=== PATIENT | female | born 1955 | race Caucasian/White ===

== ENCOUNTER 2017-07-24 16:10 | Observation (INO) | payer MEDICARE ==
[2017-07-24] MEDS ORDERED: Ondansetron HCl/PF 4 MG/2 ML Vial ONE (16:39)
[2017-07-24] MEDS ORDERED: Acetaminophen 325 MG TAB ONE (17:56)
[2017-07-24] MEDS ORDERED: Nitroglycerin 2% Ointment 1 INCH/1 GM Packet ONE (17:56)
[2017-07-24 18:08] LABS: Troponin I Less than 0.010 ng/mL (< 0.028)
[2017-07-24] MEDS ORDERED: Acetaminophen 325 MG TAB PO PRN (18:54)
[2017-07-24] MEDS ORDERED: Nitroglycerin 0.4 MG TAB (25 Tab Bottle) PO PRN (18:54)
--- NOTE | 2017-07-24 19:46 | HP ---
PRIMARY CARE PHYSICIAN: Dr. Renate Ro. CHIEF COMPLAINT: Chest pain. HISTORY OF PRESENT ILLNESS: Ms. Ricks is a pleasant 61-year-old lady who was seen at [facility] on 07/24/2017 following transfer from emergency room at [place]. She reports that over the last 3 weeks, she has had shortness of breath. She also reports that she h as been feeling dizzy with standing up. She reports that she wakes up, then has to sit up to get her bearings and slowly tries to stand up. She also reports that she has been feeling short of breath with minimal exertion. She has been unabl e to stand up in kitchen because of shortness of breath. She denies any paroxysmal nocturnal dyspnea . She denies any orthopnea. Today morning, she developed retrosternal chest pain, dull, nonradiating, 7/10. No known aggravating or relieving factors, not accompanied by nausea or vomiting; accompanied by shortness of breath. She reports that 2 nights ago, she had a different kind of pain under her left breast, which were sha rp. She also reports being hospitalized at [facility] in April for dehydration and urinary tract infecti on. REVIEW OF SYSTEMS: The following complete review of systems was negative, unless otherwise mentioned in the HPI or below: Constitutional: Weight loss or gain, sense of well-being, ability to conduct usual activities, exerc ise tolerance. Skin/Breast: Rash, itching, changes in hair growth or loss, nail changes, breast lumps, tenderness, swelling, nipple discharge. Eyes: Vision, double vision, tearing, blind spots, pain. ENT/Mouth: Headaches (location, time of onset, duration, precipitating factors), vertigo, lightheade dness, injury. Vision, double vision, tearing, blind spots, pain, nose bleeding, colds, obstruction, discharge, dental difficulties, gingival bleeding, dentures, neck stiffness, pain, tenderness, masses in thyroid or other areas. Cardiovascular: Precordial pain, substernal distress, palpitations, syncope, dyspnea on exertion, or thopnea, nocturnal paroxysmal dyspnea, edema, cyanosis, hypertension, heart murmurs, varicosities, ph lebitis, claudication. Respiratory: Pain, shortness of breath, wheezing, stridor, cough, hemoptysis, fever or night sweats. Gastrointestinal: Poor appetite, dysphagia, indigestion, abdominal pain, heartburn, eructation, naus ea, vomiting, hematemesis, jaundice, constipation, or diarrhea, abnormal stools (sonam-colored, tarry, bloody, greasy, foul smelling), flatulence, hemorrhoids, recent changes in bowel habits. Genitourinary: Urgency, frequency, dysuria, nocturia, hematuria, polyuria, oliguria, unusual (or isabel nge in) color of urine, stones, hesitancy, change in size of stream, dribbling, acute retention or in continence, libido, potency. Musculoskeletal: Pain, swelling, redness or heat of muscles or joints, limitation, of motion, muscul ar weakness, atrophy, cramps. Neurologic/Psychiatric: Convulsions, paralyses, tremor, incoordination, paresthesias, difficulties w ith memory of speech, sensory or motor disturbances, or muscular coordination (ataxia, tremor), emoti onal problems, anxiety, depression, previous psychiatric care, unusual perceptions, hallucinations. Allergy/Immunologic: Skin rash, anemia, bleeding tendency, polydipsia, polyuria, intolerance to heat or cold. PAST MEDICAL HISTORY: Significant for hypertension, anemia, gastric ulcers, osteoarthritis and heart murmur. PAST SURGICAL HISTORY: Significant for gastric bypass surgery, cholecystectomy, hernia repair and hy sterectomy. FAMILY HISTORY: Significant for myocardial infarction in her brother in his 50's. SOCIAL HISTORY: The patient denies tobacco use, alcohol use or recreational drug use. ALLERGIES: CELEBREX, CEPHALEXIN, NONSTEROIDAL ANTI-INFLAMMATORY AGENTS and SULFA. CURRENT MEDICATIONS: Include albuterol 1 puff every 12 hours, potassium 10 mEq daily, Synthroid 150 mcg daily, estradiol 2 mg daily, Singulair 10 mg daily, trazodone 50 mg daily, [place] p.r.n., nitrogly cerin sublingual p.r.n., cetirizine 10 mg daily, cyclobenzaprine 10 mg 3 times a day, paroxetine 40 m g daily, Symbicort 1 puff 2 times a day, Zofran p.r.n. and hydroxyzine p.r.n. PHYSICAL EXAMINATION: GENERAL: Ms. Ricks is awake and alert, not in acute distress. VITAL SIGNS: Blood pressure is 132/81 and pulse is 87. She is breathing at rate of 17 and saturatin g 95% on room air. She is afebrile. EYES: No scleral icterus. No conjunctival pallor. ENT: Moist mucosal membranes. No oropharyngeal erythema or exudates. NECK: Supple, nontender, normal range of movement. Trachea is midline. RESPIRATORY: Accessory muscles of breathing are not active. Chest wall movements are symmetric bila terally. LUNGS: Clear to auscultation without wheeze, rhonchi or crepitations. CARDIOVASCULAR: S1 and S2 are heard, regular. LUNGS: Peripheral pulses palpable. No carotid bruit, no pericardial rub. ABDOMEN: Soft, nontender, bowel sounds are heard. No hepatomegaly, no splenomegaly. NEUROLOGIC: Cranial nerves II-XII are intact, deep tendon reflexes are 2+. MUSCULOSKELETAL: Power is 5/5 in all 4 extremities, normal range of movement at all major extremity joints. SKIN: No rashes or subcutaneous nodules. 1+ bilateral lower extremity edema present. LYMPHATIC: No cervical lymphadenopathy. PSYCHIATRIC: Normal mood, normal affect. Patient is oriented to person, place and time. LABORATORY DATA: Ms. Ricks's labs and investigations were reviewed. I reviewed her electrocardiogram , which shows normal sinus rhythm. No ST changes to suggest an acute coronary syndrome. I also revi ewed her chest x-ray, which does not show any pulmonary infiltrates. She also had a CT angiogram of the chest, which was an indeterminate study for pulmonary embolism. There were no acute thoracic fin dings. Laboratory investigations showed an elevated D-dimer of 0.91, normal sodium, normal potassium , elevated creatinine of 1.11, last known creatinine 0.96 in 04/2017, elevated blood urea nitrogen of 25, normal ALT, slightly elevated AST of 35, normal alkaline phosphatase, normal total bilirubin, no rmal BNP of 28.5, TSH is decreased at 0.3223, normal lipase and normal troponin I. ASSESSMENT AND PLAN: Ms. Ricks is a pleasant 61-year-old lady who was seen at [facility]. Her problem list includes: 1. Chest pain: The etiology is unclear. She had an elevated D-dimer, but CT angiogram of the chest is indeterminate study. She will also need to be ruled out for acute coronary syndrome. The patien t will be admitted to the hospital for telemetry monitoring and stress test and repeat troponin. In terms of venous thromboembolism, I should note that she has a history of thromboembolism behind the r ight knee more than 10 years ago. We will check carotid Dopplers to rule out deep venous thrombosis. 2. Hypertension: Resume home medications, monitor vital signs and titrate antihypertensives as need ed. 3. Gastroesophageal reflux disease. Continue home medications. 4. Dizziness: Check orthostatic vitals. The patient may need PT evaluation when she is ruled out f or acute coronary syndrome. 5. Rule out TSH: Check free T3, free T4. Many thanks for allowing me to participate in your patient's care. Please feel free to contact me wi th any questions or concerns. LEVEL OF RISK: High. LEVEL OF COMPLEXITY: High.
--- NOTE | 2017-07-24 19:56 | ULT ---
ULTRASOUND WITH DOPPLER DUPLEX VENOUS LOWER EXTREMITY BILATERAL 07/24/17 CPT: 40695 ICD-10-PCS: B54D HISTORY: Edema, pain. TECHNIQUE: Color flow Doppler, spectral waveform analysis of pulsed Doppler, and kim-scale imaging with agnes saran and augmentation, were used to evaluate the bilateral common femoral, femoral, popliteal, damper fitter ior tibial, and superficial femoral, veins; and the proximal portions of the profunda femoral and gre ater saphenous, veins. FINDINGS: There is appropriate compressibility and flow within the imaged deep vein system of each lower extrem ity. IMPRESSION: No DVT. POS: [facility]
[2017-07-24 20:14] VITALS: BMI 36.0
[2017-07-24 20:32] LABS: Free T3 1.9 pg/mL (1.71-3.71)
[2017-07-24] MEDS ORDERED: Albuterol Sulfate 1.25 MG/3 ML NEB NEB PRN (21:33)
[2017-07-24] MEDS ORDERED: PROVENTIL INHALER 6.7 G (200 INHALATIONS) INH PRN (21:33)
[2017-07-24 21:36] LABS: Troponin I 0.016 ng/mL (< 0.028)
[2017-07-24] MEDS ORDERED: Bisacodyl 10 MG SUPP PR PRN (21:36)
[2017-07-24] MEDS ORDERED: Calcium Carbonate 500 MG ChewTAB PO PRN (21:38)
[2017-07-24] MEDS ORDERED: Cyclobenzaprine 10 MG TAB PO PRN (21:40)
[2017-07-24] MEDS ORDERED: hydrOXYzine 25 MG TAB PO PRN (21:42)
[2017-07-24] MEDS ORDERED: Nitroglycerin 0.4 MG TAB (25 Tab Bottle) SL PRN (21:44)
[2017-07-24] MEDS ORDERED: Ondansetron ODT 8 MG TAB PO PRN (21:45)
[2017-07-24] MEDS ORDERED: traZODone HCl 50 MG TAB PO PRN (21:47)
[2017-07-24] MEDS: HYDROcodone/Acetaminophen 10/325 mg Tablet PO PRN (22:03)
[2017-07-25 00:11] LABS: Troponin I 0.013 ng/mL (< 0.028)
[2017-07-25] MEDS ORDERED: Nitroglycerin 2% Ointment 1 INCH/1 GM Packet TOP SCH (02:00)
[2017-07-25 04:40] LABS: #Lymphocytes 1.3 thou/uL (1.20-3.40); #Monocytes 0.3 thou/uL (0.11-0.59); #Neutrophils 1.6 thou/uL (1.40-6.50); %Basophils 0.3 % (0.0-1.0); %Eosinophils 1.4 % (0.0-10.0); %Lymphocytes 39.7 % (21.0-51.0); Hematocrit 33.4 % (36.0-47.0); Mean Platelet Volume 8.7 fL (7.4-10.4); Red Blood Cell (RBC) Count 3.26 mill/uL (4.20-5.40); White Blood Cell (WBC) Count 3.2 thou/uL (4.8-10.8)
[2017-07-25 04:56] LABS: Anion Gap 7 mmol/L (10-20); BUN (Urea Nitrogen) 25 mg/dL (9.8-20.1); Calc. Creatinine Clearance 108 mL/min (70-130); Calcium 7.6 mg/dL (7.8-10.44); Carbon Dioxide 25 mmol/L (23-31); Chloride 110 mmol/L (98-107); Estimated GFR-MDRD 72
[2017-07-25] MEDS ORDERED: Levothyroxine Sodium 125 MCG TAB PO SCH (06:00)
[2017-07-25] MEDS: Mometasone/Formoterol 120 PUFF INHALER INH SCH ×2 (06:16→18:54)
[2017-07-25] MEDS ORDERED: Cholecalciferol (Vitamin D3) 400 UNITS TAB PO SCH (09:00)
[2017-07-25] MEDS ORDERED: Loratadine 10 MG TAB PO SCH (09:00)
[2017-07-25] MEDS ORDERED: VORTIOXETINE HYDROBROMIDE 10 MG PO SCH (09:00)
[2017-07-25] MEDS ORDERED: Estradiol 1 MG TAB PO SCH (09:00)
[2017-07-25] MEDS ORDERED: FLU VACC QS2017-18 36 mo. & older 0.5 ML SYRINGE IM ONE (09:00)
[2017-07-25] MEDS ORDERED: Calcium Carbonate 500 MG TAB PO SCH (09:00)
[2017-07-25] MEDS ORDERED: Multivitamin W/ Minerals 1 TAB PO SCH (09:00)
[2017-07-25] MEDS ORDERED: Enoxaparin Sodium 40 MG/0.4 ML SYRINGE SC SCH (09:00)
[2017-07-25] MEDS ORDERED: PARoxetine 20 MG TAB PO SCH (09:00)
--- NOTE | 2017-07-25 09:25 | PDOC.PN ---
- Subjective Encounter Start Date: 07/25/17 Encounter Start Time: 08:30 -: old records requested/rev pt seen and examined, history obtained, chart reviewed in its entirety. Pt admitted with CP last evening, biomarkers negative, nuclear stress ordered for this morning and pending. On presentation, DDimer mildly elevated, CTA neg for definite PE, LE U/S neg for DVT. Cr improved. Pt had seen her PCP earlier this week and lasix held due to orthostasis. Pt dropped 13 points systolic from sitting to standing on admit, orthostatics for this morning pending results, but pt stated she did not feel dizzy today when standing no F/c, no N/V/D/c, no CP or SOB now 10 point ROS performed and neg for all systems except as per HPI above - Objective Resuscitation Status: FULL MAR Reviewed: Yes Vital Signs & Weight: Vital Signs (12 hours) Temp Pulse Resp BP BP BP BP 07/25/17 09:00 104/60 111/49 L 111/58 L 07/25/17 08:05 97.7 F 79 16 07/25/17 07:13 97.7 F 79 16 103/55 L 07/25/17 06:16 74 16 07/25/17 04:00 97.7 F 77 14 90/51 L 07/24/17 23:15 97.7 F 92 20 109/58 L Pulse Ox 07/25/17 09:00 07/25/17 08:05 07/25/17 07:13 98 07/25/17 06:16 97 07/25/17 04:00 95 07/24/17 23:15 93 L Weight Weight 210 lb I&O: 07/24/17 07/25/17 07/26/17 06:59 06:59 06:59 Intake Total 240 Output Total 600 Balance 240 -600 Result Diagrams: 07/25/17 04:04 07/25/17 04:04 Radiology Reviewed by me: Yes EKG Reviewed by me: Yes Phys Exam - Physical Examination Constitutional: NAD HEENT: PERRLA, moist MMs, sclera anicteric, oral pharynx no lesions Neck: no nodes, no JVD, supple, full ROM Respiratory: no wheezing, no rales, no rhonchi, clear to auscultation bilateral Cardiovascular: RRR, no significant murmur, no rub Gastrointestinal: soft, non-tender, no distention, positive bowel sounds Musculoskeletal: no edema, pulses present Neurological: non-focal, normal sensation, moves all 4 limbs Lymphatic: no nodes Psychiatric: normal affect, A&O x 3 Skin: no rash, normal turgor, cap refill <2 seconds Dx/Plan (1) Chest pain Code(s): R07.9 - CHEST PAIN, UNSPECIFIED Status: Acute Qualifiers: Chest pain type: precordial pain Qualified Code(s): R07.2 - Precordial pain Comment: biomarkers negative. Stres test today. possible home this afternoon if negative. Admit note mentioned possible SNF or IPR. (2) Moderate dehydration Code(s): E86.0 - DEHYDRATION Status: Resolved Comment: Cr down, pt does not appear to be orthostatic, lasix on hold. (3) Orthostasis Code(s): I95.1 - ORTHOSTATIC HYPOTENSION Status: Resolved (4) DJD (degenerative joint disease) Code(s): M19.90 - UNSPECIFIED OSTEOARTHRITIS, UNSPECIFIED SITE Status: Chronic Qualifiers: Osteoarthritis location: unspecified site Osteoarthritis type: primary Qualified Code(s): M19.91 - Primary osteoarthritis, unspecified site (5) GERD (gastroesophageal reflux disease) Code(s): K21.9 - GASTRO-ESOPHAGEAL REFLUX DISEASE WITHOUT ESOPHAGITIS Status: Chronic Qualifiers: Esophagitis presence: esophagitis presence not specified Qualified Code(s) : K21.9 - Gastro-esophageal reflux disease without esophagitis (6) HTN (hypertension) Code(s): I10 - ESSENTIAL (PRIMARY) HYPERTENSION Status: Chronic Qualifiers: Hypertension type: essential hypertension Qualified Code(s): I10 - Essential (primary) hypertension (7) Hypothyroidism Code(s): E03.9 - HYPOTHYROIDISM, UNSPECIFIED Status: Chronic Qualifiers: Hypothyroidism type: acquired Qualified Code(s): E03.9 - Hypothyroidism, unspecified - Plan cont current plan of care * . stress this morning, of neg can mobilize iwth PT and determine dispo need.s PT is on obs.
[2017-07-25] MEDS: HYDROcodone/Acetaminophen 10/325 mg Tablet PO PRN (11:48)
--- NOTE | 2017-07-25 13:56 | NM ---
STRESS ONLY MYOCARDIAL PERFUSION EVALUATION: Date: 07/25/17 INDICATION: Chest pain. RADIOPHARMACEUTICAL: 33 mCi technetium-99m sestamibi IV with stress. FINDINGS: No radiotracer defect is evident. Normal wall motion and thickening. Estimated LVEF is 59%. IMPRESSION: Normal stress-only myocardial perfusion evaluation. POS: [facility]
[2017-07-25] MEDS ORDERED: Regadenoson 0.4 MG/5 ML SYRINGE ONE (15:25)
[2017-07-25 15:36] VITALS: BP 109/55; TEMP 98.3
--- NOTE | 2017-07-30 12:49 | STRESS ---
Acquisition Time: 2017-07-25 09:36:32 Total Exercise Time: 00:01:00 Test Indications: CHEST PAIN Medications: Protocol: LEXISCAN Max HR: 118 BPM 75% of Pred: 157 BPM Max BP: 106/074 mmHG Max Work Load: 1.0 METS RESTING ECG: NORMAL SINUS RHYTHM AT 85 BPM WITH LEFT AXIS DEVIATION SYMPTOMS: NAUSEA APPROPRIATE BLOOD PRESSURE RESPONSE FOR LEXISCAN ECTOPY: NONE ECG RESPONSE: NO SIGNIFICANT CHANGES INTERPRETATION: NEGATIVE ECG/AWAIT NUCLEAR IMAGES FOR DEFINITIVE DIAGNOSIS Confirmed by DR. Marilyn VERDE ([id number]), fashion editor YOLETTE RICHTER ([id number]) on 07/30/2017 12:49:13 PM Referred By: Elena ARAUJO Confirmed By:DR. Marilyn VERDE
--- NOTE | 2017-08-27 11:50 | EKG ---
Test Reason : Blood Pressure : / mmHG Vent. Rate : 083 BPM Atrial Rate : 083 BPM P-R Int : 162 ms QRS Dur : 100 ms QT Int : 378 ms P-R-T Axes : 046 -40 037 degrees QTc Int : 444 ms Normal sinus rhythm Left axis deviation Low voltage QRS Abnormal ECG Confirmed by JOAQUIN ACOSTA MD ([id number]), assistant film editor JOHANN REECE ([id number]) on 08/27/2017 11:50:34 AM Referred By: Confirmed By:JOAQUIN ACOSTA MD
== END 2017-07-25 18:53 | disposition home or self-care (01) ==
LOC: ERS 16:10 → 2SW 20:00
PROVIDERS: ADMIT Internal Medicine; ATTEND Internal Medicine
DX: R07.89 Other chest pain (principal); I10 Essential (primary) hypertension; M19.90 Unspecified osteoarthritis, unspecified site; K21.9 Gastro-esophageal reflux disease without esophagitis; R42 Dizziness and giddiness; E86.0 Dehydration; I95.1 Orthostatic hypotension; E03.9 Hypothyroidism, unspecified; Z88.5 Allergy status to narcotic agent; Z88.1 Allergy status to other antibiotic agents; Z88.6 Allergy status to analgesic agent; Z88.2 Allergy status to sulfonamides; Z79.899 Other long term (current) drug therapy
CPT/HCPCS: 78452; 80048; 84439; 84481; 84484; 85025; 93005; 93017; 93970; 94640; 94664; 96374; 99285; A9500; G0378; 36415; A4216; J2405; J2785

== ENCOUNTER 2017-09-24 14:47 | Inpatient (IN) | payer MEDICARE ==
[2017-09-24 15:35] LABS: #Lymphocytes 1.2 thou/uL (1.20-3.40); #Monocytes 0.3 thou/uL (0.11-0.59); #Neutrophils 4.7 thou/uL (1.40-6.50); %Basophils 0.6 % (0.0-1.0); %Eosinophils 0.5 % (0.0-10.0); %Lymphocytes 19.1 % (21.0-51.0); %Neutrophils 75.8 % (42.0-75.0); Mean Corpuscular Hemoglobin 35.7 pg (27.0-31.0); Mean Platelet Volume 9.3 fL (7.4-10.4); Platelet Count 131 thou/uL (130-400); White Blood Cell (WBC) Count 6.2 thou/uL (4.8-10.8)
[2017-09-24 15:54] LABS: INR-International Normal Ratio 1.1; PTT 26.9 SEC (22.9-36.1); Prothrombin Time 13.9 SEC (12.0-14.7)
[2017-09-24 16:01] LABS: ALT (SGPT) 56 U/L (8-55); AST (SGOT) 69 U/L (5-34); Albumin 2.2 g/dL (3.4-4.8); Alkaline Phosphatase 258 U/L (40-150); Anion Gap 15 mmol/L (10-20); BUN (Urea Nitrogen) 12 mg/dL (9.8-20.1); Bilirubin, Total 1.1 mg/dL (0.2-1.2); CK (CPK) 30 U/L (29-168); Calc. Creatinine Clearance 0 mL/min (70-130); Calcium 8.3 mg/dL (7.8-10.44); Carbon Dioxide 19 mmol/L (23-31); Chloride 110 mmol/L (98-107); Estimated GFR-MDRD 69; Globulin 3.1 g/dL (2.4-3.5); Glucose 75 mg/dL (80-115); Lipase Less than 4 U/L (8-78); MDiff Complete? YES; Macrocytosis SLIGHT = 6-15 cells (100X) (0-5/hpf); PLT Morphology Comment Appears Adequate; Polychromasia SLIGHT = 2-3 cells (100X) (0-2/hpf); Potassium 4.9 mmol/L (3.5-5.1); Protein, Total 5.3 g/dL (6.0-8.3); Sodium 139 mmol/L (136-145); Target Cells MODERATE= 6-15 cells (100X) (0-1/hpf)
--- NOTE | 2017-09-24 16:01 | RAD ---
PORTABLE UPRIGHT FRONTAL CHEST RADIOGRAPH: Date: 09-24-17 Comparison: 07-24-17 History: Fever, upper extremity pain, cellulitis. FINDINGS: There is a hazy new area of opacity in the right lung base laterally and inferiorly. There is mild increased density within the medial left lung base as well. There is no pneumothorax or alveolar edema. New cervical spine hardware is present. IMPRESSION: New focal area of opacity is noted within the lateral aspect of the right lung base. This may represe nt right basilar infectious pneumonitis or aspiration. Mild increased linear density in the medial le ft base may signify infiltrate or volume loss. PA and lateral chest imaging following treatment advis ed to document to resolution. POS: [facility]
[2017-09-24] MEDS ORDERED: Dextrose 50% Abboject 50 ML SYRINGE ONE (16:56)
[2017-09-24 17:50] LABS: Bilirubin Negative (Negative); Blood, Urine Negative (Negative); Clarity CLOUDY (Clear); Glucose, Urine (Dipstick) 100 mg/dL (Negative); Leukocyte Trace (Negative); Nitrite Positive (Negative); Protein, Urine (Dipstick) Negative (Neg-Trace); Specific Gravity, Urine 1.022 (1.002-1.036); Urobilinogen 0.2 mg/dL (0.2-1.0)
[2017-09-24 17:55] LABS: Bacteria/HPF 4+ HPF (None Seen); Hyaline Casts/LPF 4-6 HYALINE CAST LPF (0-3 Hyaline); Pathc Cast-AUWi Flag 0.81 (0-2.49); RBC/HPF None Seen HPF (0-3); Squamous Epithelial 0-3 HPF (0-3); WBC/HPF 0-3 HPF (0-3)
[2017-09-24 18:16] LABS: Renal Epithelial 0-3 HPF (0-3); Transitional Epithelial 0-3 HPF (0-3)
[2017-09-25] MEDS ORDERED: Ondansetron PF 4 MG/2 ML Vial IVP PRN ×2 (00:46→02:21)
[2017-09-25] MEDS ORDERED: Ondansetron ODT 4 MG TAB SL PRN (00:46)
[2017-09-25] MEDS ORDERED: Acetaminophen 325 MG TAB PO PRN (00:46)
[2017-09-25] MEDS ORDERED: D5 1/2 NS w/20 mEq KCL 1,000 ML IV SCH (01:00)
[2017-09-25] MEDS ORDERED: diphenhydrAMINE 25 MG CAP PO PRN (02:21)
[2017-09-25] MEDS ORDERED: Albuterol Sulfate 1.25 MG/3 ML NEB NEB PRN (02:21)
[2017-09-25] MEDS ORDERED: cloNIDine 0.1 MG TAB PO PRN (02:21)
[2017-09-25] MEDS ORDERED: Acetaminophen 500 MG TAB PO PRN (02:21)
[2017-09-25] MEDS ORDERED: traZODone HCl 50 MG TAB PO PRN (02:21)
[2017-09-25] MEDS ORDERED: hydrALAZINE 20 MG/ML VIAL SLOW IVP PRN (02:21)
[2017-09-25] MEDS ORDERED: Ondansetron ODT 4 MG TAB PO PRN (02:21)
[2017-09-25] MEDS ORDERED: PROVENTIL INHALER 6.7 G (200 INHALATIONS) INH PRN (02:21)
[2017-09-25] MEDS ORDERED: Dextrose 5 % And 0.9 % NaCl 1,000 ML IV SCH ×2 (02:30→04:30)
[2017-09-25 03:48] LABS: ALT (SGPT) 38 U/L (8-55); AST (SGOT) 44 U/L (5-34); Albumin 1.6 g/dL (3.4-4.8); Alkaline Phosphatase 164 U/L (40-150); Anion Gap 7 mmol/L (10-20); BUN (Urea Nitrogen) 10 mg/dL (9.8-20.1); Bilirubin, Total 0.8 mg/dL (0.2-1.2); Calc. Creatinine Clearance 125 mL/min (70-130); Calcium 7.3 mg/dL (7.8-10.44); Carbon Dioxide 23 mmol/L (23-31); Chloride 113 mmol/L (98-107); Estimated GFR-MDRD 81; Globulin 1.9 g/dL (2.4-3.5); Glucose 101 mg/dL (80-115); Potassium 3.6 mmol/L (3.5-5.1); Protein, Total 3.5 g/dL (6.0-8.3); Sodium 139 mmol/L (136-145)
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
[2017-09-25 04:16] LABS: Hemoglobin 11.3 g/dL (12.0-16.0); Mean Corpuscular HGB CONC 33.7 g/dL (32.0-36.0); Mean Corpuscular Hemoglobin 35.9 pg (27.0-31.0); Mean Platelet Volume 9.1 fL (7.4-10.4); Platelet Count 155 thou/uL (130-400); RBC Distribution Width 13.8 % (11.5-14.5); Red Blood Cell (RBC) Count 3.15 mill/uL (4.20-5.40)
[2017-09-25 04:17] LABS: Band 4 % (5-11); Eosinophils 1 % (0-10); Lymphocytes 15 % (21-51); MDiff Complete? YES; Macrocytosis MODERATE=16-30 cells (100X) (0-5/hpf); Monocytes 7 % (0-10); Neutrophil 73 % (42-75); PLT Morphology Comment Appears Adequate
[2017-09-25] MEDS: Vancomycin HCl 1.25 GM in Sodium Chloride 0.9% 250 ML 250 ML IVPB SCH ×3 (05:28→21:05)
[2017-09-25] MEDS: D5 1/2 NS w/20 mEq KCL 1,000 ML IV SCH ×2 (05:29→20:40)
[2017-09-25] MEDS ORDERED: metroNIDAZOLE 500 MG TAB PO SCH (06:00)
[2017-09-25] MEDS: HYDROcodone/Acetaminophen 10/325 mg Tablet PO PRN ×2 (06:46→15:31)
[2017-09-25] MEDS: Levothyroxine Sodium 112 MCG TAB PO SCH (06:46)
[2017-09-25] MEDS: Mometasone/Formoterol 120 PUFF INHALER INH SCH ×2 (07:09→18:50)
[2017-09-25 08:41] LABS: Lactic Acid 0.8 mmol/L (0.5-2.2)
[2017-09-25] MEDS ORDERED: Non-Formulary Item 1 EACH (Budesonide-Formoterol [Symbicort 160-4.5] 1 PUFF) INH SCH (09:00)
[2017-09-25] MEDS ORDERED: Cetirizine HCl 10 MG TAB PO SCH (09:00)
[2017-09-25] MEDS ORDERED: Vortioxetine Hydrobromide [Trintellix] 10 MG PO SCH (09:00)
[2017-09-25] MEDS: Nystatin Powder 15 GM BOT TOP SCH ×3 (11:30→20:42)
[2017-09-25] MEDS: Clindamycin/D5W 900 MG in Premix Bag 1 BAG IVPB SCH ×2 (12:11→15:20)
[2017-09-25] MEDS: Montelukast Sodium 10 mg Tablet PO SCH (12:12)
[2017-09-25] MEDS: Loratadine 10 MG TAB PO SCH (12:12)
[2017-09-25] MEDS: Aspirin 81 mg Enteric Coated Tablet PO SCH (12:12)
[2017-09-25] MEDS: Estradiol 1 MG TAB PO SCH (12:12)
[2017-09-25] MEDS: Multivitamin W/ Minerals 1 TAB PO SCH (12:12)
[2017-09-25] MEDS: Calcium Carbonate 600 MG TAB PO SCH (12:12)
[2017-09-25] MEDS ORDERED: Iopamidol 370 76% 50 ML VIAL FS ONE (12:45)
[2017-09-25] MEDS ORDERED: ISOVUE-370 76%-LOCM 1 ML ONE (12:45)
--- NOTE | 2017-09-25 13:23 | PDOC.PN ---
- Subjective Encounter Start Date: 09/25/17 Encounter Start Time: 12:00 Subjective: feels better - Objective Resuscitation Status: Resuscitation Status FULL:Full Resuscitation MAR Reviewed: Yes Vital Signs & Weight: Vital Signs (12 hours) Temp Pulse Pulse Pulse Resp BP BP 09/25/17 09:50 102 H 119 H 104/53 L 106/65 09/25/17 07:09 88 16 09/25/17 04:50 98.1 F 110 H 18 BP Pulse Ox 09/25/17 09:50 09/25/17 07:09 09/25/17 04:50 104/55 L 98 Weight Admit Weight 221 lb Weight 221 lb I&O: 09/24/17 09/25/17 09/26/17 06:59 06:59 06:59 Intake Total 591 Balance 591 Result Diagrams: 09/25/17 03:02 09/25/17 03:02 Additional Labs: Accuchecks 09/25/17 09/25/17 11:55 05:30 POC Glucose 63 L 118 H Phys Exam - Physical Examination HEENT: PERRLA, moist MMs Neck: no JVD, supple Respiratory: no wheezing, no rales Cardiovascular: RRR, no significant murmur Gastrointestinal: soft, non-tender, positive bowel sounds Musculoskeletal: pulses present, edema present b/l UE edema, erythema+ Neurological: non-focal, moves all 4 limbs Psychiatric: A&O x 3 Dx/Plan (1) Cellulitis of upper extremity Code(s): L03.119 - CELLULITIS OF UNSPECIFIED PART OF LIMB Status: Acute Comment: b/l (2) Hypoalbuminemia due to protein-calorie malnutrition Code(s): E46 - UNSPECIFIED PROTEIN-CALORIE MALNUTRITION Status: Chronic (3) FTT (failure to thrive) in adult Status: Chronic (4) Sepsis Code(s): A41.9 - SEPSIS, UNSPECIFIED ORGANISM Status: Acute Qualifiers: Sepsis type: sepsis due to unspecified organism Qualified Code(s): A41.9 - Sepsis, unspecified organism (5) UTI (urinary tract infection) Status: Acute Qualifiers: Urinary tract infection type: acute cystitis Hematuria presence: without hematuria Qualified Code(s): N30.00 - Acute cystitis without hematuria (6) Macrocytic anemia Code(s): D53.9 - NUTRITIONAL ANEMIA, UNSPECIFIED Status: Chronic (7) HTN (hypertension) Code(s): I10 - ESSENTIAL (PRIMARY) HYPERTENSION Status: Chronic Qualifiers: Hypertension type: essential hypertension (8) Hypothyroidism Code(s): E03.9 - HYPOTHYROIDISM, UNSPECIFIED Status: Chronic Qualifiers: Hypothyroidism type: unspecified Qualified Code(s): E03.9 - Hypothyroidism , unspecified - Plan is on clindamycin, levaquin and vanc -: gentle iv hydration -: will likely need swing bed in [place] (lives in [place]) -: prior h/o mrsa infection, has multiple dogs at home -: check B12, folic acid levels * . Review of Systems - Medications/Allergies Allergies/Adverse Reactions: Allergies Allergy/AdvReac Type Severity Reaction Status Date / Time cephalexin monohydrate Allergy Intermediate Rash Verified 09/25/17 00:58 [From Keflex] celecoxib [From Celebrex] Allergy Verified 09/25/17 00:58 Cephalosporins Allergy Verified 09/25/17 00:58 codeine Allergy Verified 09/25/17 00:58 [From Tylenol-Codeine #3] NSAIDS (Non-Steroidal Allergy Verified 09/25/17 00:58 Anti-Inflamma Penicillins Allergy Verified 09/25/17 00:58 Sulfa (Sulfonamide Allergy Verified 09/25/17 00:58 Antibiotics) Medications: Current Medications Acetaminophen (Tylenol) 1,000 mg PO Q6H PRN PRN Reason: Headache/Fever or Mild Pain Hydrocodone Bitart/Acetaminophen (Sallis 10/325) 1 tab PO Q6H PRN PRN Reason: Pain Last Admin: 09/25/17 06:46 Dose: 1 tab Albuterol Sulfate (Albuterol Sulfate) 0.63 mg NEB Q4H PRN PRN Reason: Wheezing Albuterol Sulfate (Proventil Hfa) 2 puff INH Q4H PRN PRN Reason: SOB &/or Wheezing Aspirin (Ecotrin) 81 mg PO DAILY [facility] Last Admin: 09/25/17 12:12 Dose: 81 mg Calcium Carbonate (Caltrate) 1,200 mg PO DAILY [facility] Last Admin: 09/25/17 12:12 Dose: 1,200 mg Cholecalciferol (Vitamin D3) 1,000 units PO DAILY [facility] Last Admin: 09/25/17 12:11 Dose: 1,000 units Clonidine (Catapres) 0.1 mg PO Q4H PRN PRN Reason: Systolic BP > 180 Cyclobenzaprine HCl (Flexeril) 10 mg PO TIDPRN PRN PRN Reason: Muscle Spasm Diphenhydramine HCl (Benadryl) 25 mg PO Q6H PRN PRN Reason: Itching Estradiol (Estrace) 0.5 mg PO DAILY [facility] Last Admin: 09/25/17 12:12 Dose: 0.5 mg Hydralazine HCl (Apresoline) 10 mg SLOW IVP Q4H PRN PRN Reason: Systolic BP > 180 Clindamycin Phosphate/Dextrose (900 mg/ Device) 50 mls @ 100 mls/hr IVPB Q8HR [facility] Last Admin: 09/25/17 12:11 Dose: 50 mls Levofloxacin 750 mg/ Device 150 mls @ 100 mls/hr IVPB Q24HR [facility] Vancomycin HCl 1.25 gm/ Sodium (Chloride) 250 mls @ 166.67 mls/hr IVPB 0500, 1700 [facility] Last Admin: 09/25/17 05:28 Dose: 250 mls Potassium Chloride/Dextrose/Sod Cl (D5 1/2 Ns W/20 Meq Kcl) 1,000 mls @ 75 mls/ hr IV .[id number] [facility] Last Admin: 09/25/17 05:29 Dose: Not Given Iron/Minerals/Multivitamins (Theragran M) 1 tab PO DAILY [facility] Last Admin: 09/25/17 12:12 Dose: 1 tab Levothyroxine Sodium (Synthroid) 112 mcg PO 0600 [facility] Last Admin: 09/25/17 06:46 Dose: 112 mcg Loperamide HCl (Imodium) 2 mg PO PRN PRN PRN Reason: Diarrhea/Loose Stools Loratadine (Claritin) 10 mg PO DAILY [facility] Last Admin: 09/25/17 12:12 Dose: 10 mg Miscellaneous Medication (Pharmacy To Dose) 0 each IVPB PRN PRN PRN Reason: VANC PHARMACY TO DOSE Mometasone Furoate/Formoterol Fumar (Dulera 200 Mcg/5 Mcg Inhaler) 1 puff INH BID-RT [facility] Last Admin: 09/25/17 07:09 Dose: 1 puff Montelukast Sodium (Singulair) 10 mg PO DAILY [facility] Last Admin: 09/25/17 12:12 Dose: 10 mg Vortioxetine Hydrobromide [ Trintellix] 10 Mg 10 mg PO DAILY [facility] Nystatin (Mycostatin Powder) 1 gm TOP TID [facility] Ondansetron HCl (Zofran Odt) 4 mg PO Q6H PRN PRN Reason: Nausea/Vomiting Ondansetron HCl (Zofran) 4 mg IVP Q6H PRN PRN Reason: Nausea/Vomiting Pantoprazole Sodium (Protonix) 40 mg PO BID [facility] Last Admin: 09/25/17 12:12 Dose: 40 mg Sodium Chloride (Flush - Normal Saline) 10 ml IVF Q12HR [facility] Sodium Chloride (Flush - Normal Saline) 10 ml IVF PRN PRN PRN Reason: Saline Flush Trazodone HCl (Desyrel) 100 mg PO HSPRN PRN PRN Reason: sleep
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
--- NOTE | 2017-09-25 19:49 | CT ---
CT OF ABDOMEN AND PELVIS PERFORMED WITH INTRAVENOUS CONTRAST ENHANCEMENT: 09/25/17 COMPARISON: A 09/13/16 CT of the abdomen and a CT angio of the chest that was performed 07/24/17. HISTORY: Abdominal pain, vomiting, prior gastric bypass. The lung bases show bibasilar atelectasis and development of bilateral pleural effusions, left larger than right. The left effusion is moderate in size. There is evidence of a gastric bypass. Some of the proximal small bowel shows some mild distention bu t in reviewing the previous CT angio of the chest, this was partially visualized on that study and ap pears to be similar. More distal small bowel is normal in caliber. There are marked diffuse fatty isabel nges of the liver. The spleen is within normal limits of size. Pancreas region is unremarkable. The g allbladder has been removed. Right and left adrenal glands are normal. A 5.2 cm upper pole left renal cyst is again identified. Sm aller lower pole left renal cyst is also seen. No significant periaortic or mesenteric adenopathy. So me minimal prominent enhancement to the colonic wall, specifically the right colon. I think this is r elated to interface with the fluid which is in the right colon. the colon does not appear distended a nd there is no wall thickening to suggest any type of colitis. CT OF PELVIS PERFORMED WITH CONTRAST ENHANCEMENT: Mild amount of stool in the rectosigmoid region. No inflammatory process. No adenopathy or mass. Ther e is some mild to moderate edema changes within the subcutaneous fat. IMPRESSION: 1. Development of some moderate bilateral pleural effusions, left larger than right. 2. Evidence of previous gastric bypass. 3. Diffuse fatty changes of the liver. 4. Postop cholecystectomy change. 5. Findings suggest some element of anasarca with edema changes within the subcutaneous fat of t he abdomen. POS: [facility]
[2017-09-26] MEDS: HYDROcodone/Acetaminophen 10/325 mg Tablet PO PRN ×2 (00:13→15:45)
[2017-09-26] MEDS: Levothyroxine Sodium 112 MCG TAB PO SCH (05:43)
[2017-09-26] MEDS: Mometasone/Formoterol 120 PUFF INHALER INH SCH ×2 (07:44→19:49)
[2017-09-26] MEDS: Estradiol 1 MG TAB PO SCH (09:21)
[2017-09-26] MEDS: Aspirin 81 mg Enteric Coated Tablet PO SCH (09:22)
[2017-09-26] MEDS: Multivitamin W/ Minerals 1 TAB PO SCH (09:22)
[2017-09-26] MEDS: Calcium Carbonate 600 MG TAB PO SCH (09:22)
[2017-09-26] MEDS: Loratadine 10 MG TAB PO SCH (09:22)
[2017-09-26] MEDS: Montelukast Sodium 10 mg Tablet PO SCH (09:22)
[2017-09-26] MEDS: D5 1/2 NS w/20 mEq KCL 1,000 ML IV SCH ×2 (09:23→15:52)
[2017-09-26] MEDS: Vancomycin HCl 1.25 GM in Sodium Chloride 0.9% 250 ML 250 ML IVPB SCH (09:23)
[2017-09-26] MEDS: Nystatin Powder 15 GM BOT TOP SCH ×3 (09:24→21:17)
--- NOTE | 2017-09-26 12:07 | PDOC.PN ---
- Subjective Encounter Start Date: 09/26/17 Encounter Start Time: 12:06 Subjective: nsg notes rev, kady ovn, pt no new c/o feels overall "better" compared to -: pre admission. no further diarrhea, reports feeling very hungry - Objective Resuscitation Status: Resuscitation Status FULL:Full Resuscitation Vital Signs & Weight: Vital Signs (12 hours) Temp Pulse Resp BP Pulse Ox 09/26/17 08:12 97.7 F 97 16 117/78 95 09/26/17 08:00 97.7 F 97 16 95 09/26/17 07:44 102 H 16 09/26/17 04:00 98.1 F 102 H 18 116/74 95 Weight Admit Weight 221 lb Weight 221 lb I&O: 09/25/17 09/26/17 09/27/17 06:59 06:59 06:59 Intake Total 591 2180 Balance 591 2180 Result Diagrams: 09/25/17 03:02 09/25/17 03:02 Additional Labs: Accuchecks 09/26/17 09/25/17 09/25/17 05:14 19:52 18:17 POC Glucose 94 79 92 Phys Exam - Physical Examination Constitutional: NAD seated in hospital bed HEENT: PERRLA, moist MMs Neck: no nodes Respiratory: no wheezing, no rales, no rhonchi, clear to auscultation bilateral Cardiovascular: RRR, no significant murmur, no rub Gastrointestinal: soft, non-tender, no distention, positive bowel sounds Musculoskeletal: no edema, pulses present Neurological: moves all 4 limbs Psychiatric: normal affect, A&O x 3 Dx/Plan (1) Cellulitis of upper extremity Code(s): L03.119 - CELLULITIS OF UNSPECIFIED PART OF LIMB Status: Acute Comment: b/l (2) UTI (urinary tract infection) Status: Acute Qualifiers: Urinary tract infection type: acute cystitis Hematuria presence: without hematuria Qualified Code(s): N30.00 - Acute cystitis without hematuria (3) FTT (failure to thrive) in adult Status: Chronic (4) Hypoalbuminemia due to protein-calorie malnutrition Code(s): E46 - UNSPECIFIED PROTEIN-CALORIE MALNUTRITION Status: Chronic (5) HTN (hypertension) Code(s): I10 - ESSENTIAL (PRIMARY) HYPERTENSION Status: Chronic Qualifiers: Hypertension type: essential hypertension Qualified Code(s): I10 - Essential (primary) hypertension - Plan cont current plan of care, continue antibiotics * Septic presentation, improved * ? related to UTI, start ciprofloxacin as per sensitivities * appreciate ID c/s * CT abd/ pelv unremarkable sev prot-justin malnut with hypoalbuminemia * pt states she eats "chicken and fish" mostly at home * dietary c/s * resume home diet as tolerated * will need close outpatient follow up regarding nutritional status - this was d/w patient diet: as annette activity: OOB as annette. Review of Systems - Medications/Allergies Allergies/Adverse Reactions: Allergies Allergy/AdvReac Type Severity Reaction Status Date / Time cephalexin monohydrate Allergy Intermediate Rash Verified 09/25/17 00:58 [From Keflex] celecoxib [From Celebrex] Allergy Verified 09/25/17 00:58 Cephalosporins Allergy Verified 09/25/17 00:58 codeine Allergy Verified 09/25/17 00:58 [From Tylenol-Codeine #3] NSAIDS (Non-Steroidal Allergy Verified 09/25/17 00:58 Anti-Inflamma Penicillins Allergy Verified 09/25/17 00:58 Sulfa (Sulfonamide Allergy Verified 09/25/17 00:58 Antibiotics) Medications: Current Medications Acetaminophen (Tylenol) 1,000 mg PO Q6H PRN PRN Reason: Headache/Fever or Mild Pain Hydrocodone Bitart/Acetaminophen (Harrison 10/325) 1 tab PO Q6H PRN PRN Reason: Pain Last Admin: 09/26/17 00:13 Dose: 1 tab Albuterol Sulfate (Albuterol Sulfate) 0.63 mg NEB Q4H PRN PRN Reason: Wheezing Albuterol Sulfate (Proventil Hfa) 2 puff INH Q4H PRN PRN Reason: SOB &/or Wheezing Aspirin (Ecotrin) 81 mg PO DAILY [facility] Last Admin: 09/26/17 09:22 Dose: 81 mg Calcium Carbonate (Caltrate) 1,200 mg PO DAILY [facility] Last Admin: 09/26/17 09:22 Dose: 1,200 mg Cholecalciferol (Vitamin D3) 1,000 units PO DAILY [facility] Last Admin: 09/26/17 09:22 Dose: 1,000 units Ciprofloxacin (Cipro) 500 mg PO 0600,2000 [facility] Clonidine (Catapres) 0.1 mg PO Q4H PRN PRN Reason: Systolic BP > 180 Cyclobenzaprine HCl (Flexeril) 10 mg PO TIDPRN PRN PRN Reason: Muscle Spasm Diphenhydramine HCl (Benadryl) 25 mg PO Q6H PRN PRN Reason: Itching Estradiol (Estrace) 0.5 mg PO DAILY [facility] Last Admin: 09/26/17 09:21 Dose: 0.5 mg Hydralazine HCl (Apresoline) 10 mg SLOW IVP Q4H PRN PRN Reason: Systolic BP > 180 Potassium Chloride/Dextrose/Sod Cl (D5 1/2 Ns W/20 Meq Kcl) 1,000 mls @ 75 mls/ hr IV .[id number] [facility] Last Admin: 09/26/17 09:23 Dose: Not Given Vancomycin HCl 1.25 gm/ Sodium (Chloride) 250 mls @ 166.67 mls/hr IVPB 0900, 2100 [facility] Last Admin: 09/26/17 09:23 Dose: 250 mls Iron/Minerals/Multivitamins (Theragran M) 1 tab PO DAILY [facility] Last Admin: 09/26/17 09:22 Dose: 1 tab Levothyroxine Sodium (Synthroid) 112 mcg PO 0600 [facility] Last Admin: 09/26/17 05:43 Dose: 112 mcg Loperamide HCl (Imodium) 2 mg PO PRN PRN PRN Reason: Diarrhea/Loose Stools Loratadine (Claritin) 10 mg PO DAILY [facility] Last Admin: 09/26/17 09:22 Dose: 10 mg Miscellaneous Medication (Pharmacy To Dose) 0 each IVPB PRN PRN PRN Reason: VANC PHARMACY TO DOSE Mometasone Furoate/Formoterol Fumar (Dulera 200 Mcg/5 Mcg Inhaler) 1 puff INH BID-RT [facility] Last Admin: 09/26/17 07:44 Dose: 1 puff Montelukast Sodium (Singulair) 10 mg PO DAILY [facility] Last Admin: 09/26/17 09:22 Dose: 10 mg Vortioxetine Hydrobromide [ Trintellix] 10 Mg 10 mg PO DAILY [facility] Nystatin (Mycostatin Powder) 1 gm TOP TID [facility] Last Admin: 09/26/17 09:24 Dose: 1 gm Pantoprazole Sodium (Protonix) 40 mg PO BID [facility] Last Admin: 09/26/17 09:22 Dose: 40 mg Sodium Chloride (Flush - Normal Saline) 10 ml IVF Q12HR [facility] Last Admin: 09/26/17 09:23 Dose: Not Given Sodium Chloride (Flush - Normal Saline) 10 ml IVF PRN PRN PRN Reason: Saline Flush Trazodone HCl (Desyrel) 100 mg PO HSPRN PRN PRN Reason: sleep
[2017-09-26] MEDS: Ciprofloxacin 500 MG TAB PO SCH (21:13)
[2017-09-26] MEDS: Vancomycin HCl 1 GM in Premix Bag 1 BAG IVPB SCH (21:15)
[2017-09-27] MEDS: Ciprofloxacin 500 MG TAB PO SCH ×2 (06:04→20:05)
[2017-09-27] MEDS: Levothyroxine Sodium 112 MCG TAB PO SCH (06:05)
[2017-09-27] MEDS: D5 1/2 NS w/20 mEq KCL 1,000 ML IV SCH ×2 (06:05→20:06)
[2017-09-27] MEDS: Vancomycin HCl 1 GM in Premix Bag 1 BAG IVPB SCH ×2 (08:56→20:05)
[2017-09-27] MEDS: Calcium Carbonate 600 MG TAB PO SCH (08:59)
[2017-09-27] MEDS: Loratadine 10 MG TAB PO SCH (08:59)
[2017-09-27] MEDS: Aspirin 81 mg Enteric Coated Tablet PO SCH (09:00)
[2017-09-27] MEDS: Estradiol 1 MG TAB PO SCH (09:00)
[2017-09-27] MEDS: Multivitamin W/ Minerals 1 TAB PO SCH (09:00)
[2017-09-27] MEDS: Montelukast Sodium 10 mg Tablet PO SCH (09:01)
[2017-09-27] MEDS: Nystatin Powder 15 GM BOT TOP SCH ×3 (09:01→20:11)
[2017-09-27] MEDS: Mometasone/Formoterol 120 PUFF INHALER INH SCH ×2 (10:44→18:31)
--- NOTE | 2017-09-27 11:56 | PDOC.PN ---
- Subjective Encounter Start Date: 09/27/17 Encounter Start Time: 11:56 Subjective: nsg notes rev, kady ovn, no new c/o but has been experiencing a -: "metallic taste" to all her food and is eating less. states that dietary -: supplements give her diarrhea. reports feeling weak, no fevers/ chills - Objective Resuscitation Status: Resuscitation Status FULL:Full Resuscitation Vital Signs & Weight: Vital Signs (12 hours) Temp Pulse Resp BP Pulse Ox 09/27/17 11:00 97.6 F 99 20 102/67 97 09/27/17 08:00 97.4 F L 99 16 97 09/27/17 07:46 97.4 F L 99 16 112/79 97 Weight Admit Weight 221 lb Weight 221 lb I&O: 09/26/17 09/27/17 09/28/17 06:59 06:59 06:59 Intake Total 2180 3180 Output Total 3 Balance 2180 3177 Result Diagrams: 09/25/17 03:02 09/25/17 03:02 Additional Labs: Accuchecks 09/27/17 09/26/17 09/26/17 04:26 20:55 16:53 POC Glucose 101 108 123 H 09/26/17 09/26/17 09/25/17 13:10 11:49 16:37 POC Glucose 99 58 L* 90 Phys Exam - Physical Examination Constitutional: NAD HEENT: PERRLA, moist MMs Neck: no JVD Respiratory: no wheezing, no rales, no rhonchi, clear to auscultation bilateral limited anterior examination Cardiovascular: RRR, no significant murmur, no rub Gastrointestinal: soft, non-tender, no distention, positive bowel sounds Psychiatric: normal affect, A&O x 3 Dx/Plan (1) Cellulitis of upper extremity Code(s): L03.119 - CELLULITIS OF UNSPECIFIED PART OF LIMB Status: Acute Comment: b/l (2) UTI (urinary tract infection) Status: Acute Qualifiers: Urinary tract infection type: acute cystitis Hematuria presence: without hematuria Qualified Code(s): N30.00 - Acute cystitis without hematuria (3) FTT (failure to thrive) in adult Status: Chronic (4) Hypoalbuminemia due to protein-calorie malnutrition Code(s): E46 - UNSPECIFIED PROTEIN-CALORIE MALNUTRITION Status: Chronic (5) HTN (hypertension) Code(s): I10 - ESSENTIAL (PRIMARY) HYPERTENSION Status: Chronic Qualifiers: Hypertension type: essential hypertension Qualified Code(s): I10 - Essential (primary) hypertension - Plan cont current plan of care, continue antibiotics, PT/OT * . cont current plan of care, continue antibiotics * Septic presentation, improved * E Coli UTI, no other apparent infectious process identified yet * continue with ciprofloxacin and vancomycin (for possible UE cellulitis, concern for MRSA) * appreciate ID c/s * CT abd/ pelv unremarkable sev prot-justin malnut with hypoalbuminemia * pt states she eats "chicken and fish" mostly at home * will need close outpatient follow up regarding nutritional status - this was d/w patient diet: as annette activity: OOB as annette. will c/s rehab for significant apparent deconditioning with ADLs Review of Systems - Medications/Allergies Allergies/Adverse Reactions: Allergies Allergy/AdvReac Type Severity Reaction Status Date / Time cephalexin monohydrate Allergy Intermediate Rash Verified 09/25/17 00:58 [From Keflex] celecoxib [From Celebrex] Allergy Verified 09/25/17 00:58 Cephalosporins Allergy Verified 09/25/17 00:58 codeine Allergy Verified 09/25/17 00:58 [From Tylenol-Codeine #3] NSAIDS (Non-Steroidal Allergy Verified 09/25/17 00:58 Anti-Inflamma Penicillins Allergy Verified 09/25/17 00:58 Sulfa (Sulfonamide Allergy Verified 09/25/17 00:58 Antibiotics) Medications: Current Medications Acetaminophen (Tylenol) 1,000 mg PO Q6H PRN PRN Reason: Headache/Fever or Mild Pain Hydrocodone Bitart/Acetaminophen ([place] 10/325) 1 tab PO Q6H PRN PRN Reason: Pain Last Admin: 09/26/17 15:45 Dose: 1 tab Albuterol Sulfate (Albuterol Sulfate) 0.63 mg NEB Q4H PRN PRN Reason: Wheezing Albuterol Sulfate (Proventil Hfa) 2 puff INH Q4H PRN PRN Reason: SOB &/or Wheezing Aspirin (Ecotrin) 81 mg PO DAILY [facility] Last Admin: 09/27/17 09:00 Dose: 81 mg Calcium Carbonate (Caltrate) 1,200 mg PO DAILY [facility] Last Admin: 09/27/17 08:59 Dose: 1,200 mg Cholecalciferol (Vitamin D3) 1,000 units PO DAILY [facility] Last Admin: 09/27/17 08:59 Dose: 1,000 units Ciprofloxacin (Cipro) 500 mg PO 06,1999 [facility] Last Admin: 09/27/17 06:04 Dose: 500 mg Clonidine (Catapres) 0.1 mg PO Q4H PRN PRN Reason: Systolic BP > 180 Cyclobenzaprine HCl (Flexeril) 10 mg PO TIDPRN PRN PRN Reason: Muscle Spasm Diphenhydramine HCl (Benadryl) 25 mg PO Q6H PRN PRN Reason: Itching Estradiol (Estrace) 0.5 mg PO DAILY [facility] Last Admin: 09/27/17 09:00 Dose: 0.5 mg Hydralazine HCl (Apresoline) 10 mg SLOW IVP Q4H PRN PRN Reason: Systolic BP > 180 Potassium Chloride/Dextrose/Sod Cl (D5 1/2 Ns W/20 Meq Kcl) 1,000 mls @ 75 mls/ hr IV .[id number] [facility] Last Admin: 09/27/17 06:05 Dose: 1,000 mls Vancomycin HCl 1 gm/ Device 200 mls @ 200 mls/hr IVPB 0900,2100 [facility] Last Admin: 09/27/17 08:56 Dose: 200 mls Iron/Minerals/Multivitamins (Theragran M) 1 tab PO DAILY [facility] Last Admin: 09/27/17 09:00 Dose: 1 tab Levothyroxine Sodium (Synthroid) 112 mcg PO 0600 [facility] Last Admin: 09/27/17 06:05 Dose: 112 mcg Loperamide HCl (Imodium) 2 mg PO PRN PRN PRN Reason: Diarrhea/Loose Stools Loratadine (Claritin) 10 mg PO DAILY [facility] Last Admin: 09/27/17 08:59 Dose: 10 mg Miscellaneous Medication (Pharmacy To Dose) 0 each IVPB PRN PRN PRN Reason: [facility] TO DOSE Mometasone Furoate/Formoterol Fumar (Dulera 200 Mcg/5 Mcg Inhaler) 1 puff INH BID-RT [facility] Last Admin: 09/27/17 10:44 Dose: Not Given Montelukast Sodium (Singulair) 10 mg PO DAILY [facility] Last Admin: 09/27/17 09:01 Dose: 10 mg Vortioxetine Hydrobromide [ Trintellix] 10 Mg 10 mg PO DAILY [facility] Nystatin (Mycostatin Powder) 1 gm TOP TID [facility] Last Admin: 09/27/17 09:01 Dose: 1 gm Pantoprazole Sodium (Protonix) 40 mg PO BID [facility] Last Admin: 09/27/17 08:59 Dose: 40 mg Sodium Chloride (Flush - Normal Saline) 10 ml IVF Q12HR [facility] Last Admin: 09/27/17 09:01 Dose: Not Given Sodium Chloride (Flush - Normal Saline) 10 ml IVF PRN PRN PRN Reason: Saline Flush Trazodone HCl (Desyrel) 100 mg PO HSPRN PRN PRN Reason: sleep
[2017-09-27] MEDS: HYDROcodone/Acetaminophen 10/325 mg Tablet PO PRN (13:46)
[2017-09-27] MEDS: Promethazine HCl 25 MG in Sodium Chloride 0.9% 100 ML IVPB PRN (23:01)
[2017-09-28] MEDS: Ciprofloxacin 500 MG TAB PO SCH ×2 (05:48→20:12)
[2017-09-28] MEDS: Levothyroxine Sodium 112 MCG TAB PO SCH (05:48)
[2017-09-28] MEDS: Mometasone/Formoterol 120 PUFF INHALER INH SCH ×2 (06:59→20:29)
[2017-09-28 08:30] LABS: Vancomycin, Trough 26.2 ug/mL
[2017-09-28] MEDS: Estradiol 1 MG TAB PO SCH (08:47)
[2017-09-28] MEDS: Montelukast Sodium 10 mg Tablet PO SCH (08:48)
[2017-09-28] MEDS: Loratadine 10 MG TAB PO SCH (08:48)
[2017-09-28] MEDS: Calcium Carbonate 600 MG TAB PO SCH (08:49)
[2017-09-28] MEDS: Nystatin Powder 15 GM BOT TOP SCH ×3 (08:49→22:52)
[2017-09-28] MEDS: Multivitamin W/ Minerals 1 TAB PO SCH (08:49)
[2017-09-28] MEDS: Aspirin 81 mg Enteric Coated Tablet PO SCH (08:49)
[2017-09-28] MEDS: Vancomycin HCl 1 GM in Premix Bag 1 BAG IVPB SCH (09:41)
[2017-09-28] MEDS: D5 1/2 NS w/20 mEq KCL 1,000 ML IV SCH ×2 (10:39→23:50)
[2017-09-28] MEDS: HYDROcodone/Acetaminophen 10/325 mg Tablet PO PRN ×2 (10:41→20:12)
[2017-09-28] MEDS: Loperamide HCl 2 MG CAP PO PRN (11:18)
--- NOTE | 2017-09-28 12:07 | EKG ---
Test Reason : Blood Pressure : / mmHG Vent. Rate : 130 BPM Atrial Rate : 130 BPM P-R Int : 136 ms QRS Dur : 106 ms QT Int : 310 ms P-R-T Axes : 082 260 062 degrees QTc Int : 456 ms Sinus tachycardia Incomplete right bundle branch block Right ventricular hypertrophy with repolarization abnormality Possible Anterolateral infarct , age undetermined Abnormal ECG Confirmed by BEKA ROCKWELL, DORIS ([id number]), editorial director JOHANN REECE ([id number]) on 09/28/2017 12:07:29 PM Referred By: Confirmed By:DORIS IRELAND MD
[2017-09-28] MEDS: Promethazine HCl 25 MG in Sodium Chloride 0.9% 100 ML IVPB PRN ×2 (13:41→20:12)
[2017-09-28] MEDS: Vancomycin HCl 750 MG in Sodium Chloride 0.9% 250 ML 250 ML IVPB SCH (20:12)
--- NOTE | 2017-09-28 23:37 | PDOC.PN ---
- Subjective Encounter Start Date: 09/28/17 Encounter Start Time: 16:00 Subjective: nsg notes rev, required 2 assist to go to bathroom earlier -: pt c/o feeling very weak and nauseated, no other acute c/o - Objective Resuscitation Status: Resuscitation Status FULL:Full Resuscitation Vital Signs & Weight: Vital Signs (12 hours) Temp Pulse Resp BP Pulse Ox 09/28/17 20:29 75 16 98 09/28/17 20:00 98.3 F 75 16 97 09/28/17 19:22 98 F 93 20 115/77 96 09/28/17 17:02 98 09/28/17 16:00 97.3 F L 116 H 20 113/80 83 L 09/28/17 11:51 97.8 F 103 H 20 100/65 95 Weight Admit Weight 221 lb Weight 221 lb I&O: 09/27/17 09/28/17 09/29/17 06:59 06:59 06:59 Intake Total 3180 2830 1950 Output Total 3 1 Balance 3177 2829 1950 Result Diagrams: 09/25/17 03:02 09/29/17 03:50 Additional Labs: Accuchecks 09/28/17 09/28/17 09/28/17 19:37 16:28 11:19 POC Glucose 109 64 L 89 09/28/17 04:29 POC Glucose 107 Phys Exam - Physical Examination Constitutional: NAD HEENT: moist MMs Neck: no nodes, no JVD Respiratory: no wheezing, no rales, no rhonchi, clear to auscultation bilateral Cardiovascular: RRR, no significant murmur, no rub Gastrointestinal: soft, non-tender, positive bowel sounds Neurological: moves all 4 limbs Psychiatric: normal affect, A&O x 3 Dx/Plan (1) Cellulitis of upper extremity Code(s): L03.119 - CELLULITIS OF UNSPECIFIED PART OF LIMB Status: Acute Comment: b/l (2) UTI (urinary tract infection) Status: Acute Qualifiers: Urinary tract infection type: acute cystitis Hematuria presence: without hematuria Qualified Code(s): N30.00 - Acute cystitis without hematuria (3) FTT (failure to thrive) in adult Status: Chronic (4) Hypoalbuminemia due to protein-calorie malnutrition Code(s): E46 - UNSPECIFIED PROTEIN-CALORIE MALNUTRITION Status: Chronic (5) HTN (hypertension) Code(s): I10 - ESSENTIAL (PRIMARY) HYPERTENSION Status: Chronic Qualifiers: Hypertension type: essential hypertension Qualified Code(s): I10 - Essential (primary) hypertension - Plan * * Septic presentation, improved * E Coli UTI, no other apparent infectious process identified yet * continue with ciprofloxacin and vancomycin (for possible UE cellulitis, concern for MRSA) * appreciate ID c/s * CT abd/ pelv unremarkable sev prot-justin malnut with hypoalbuminemia * will need close outpatient follow up regarding nutritional status - this was d/w patient diet: as annette activity: OOB as annette, encourage, ICS, PT Review of Systems - Medications/Allergies Allergies/Adverse Reactions: Allergies Allergy/AdvReac Type Severity Reaction Status Date / Time cephalexin monohydrate Allergy Intermediate Rash Verified 09/25/17 00:58 [From Keflex] celecoxib [From Celebrex] Allergy Verified 09/25/17 00:58 Cephalosporins Allergy Verified 09/25/17 00:58 codeine Allergy Verified 09/25/17 00:58 [From Tylenol-Codeine #3] NSAIDS (Non-Steroidal Allergy Verified 09/25/17 00:58 Anti-Inflamma Penicillins Allergy Verified 09/25/17 00:58 Sulfa (Sulfonamide Allergy Verified 09/25/17 00:58 Antibiotics) Medications: Current Medications Acetaminophen (Tylenol) 1,000 mg PO Q6H PRN PRN Reason: Headache/Fever or Mild Pain Hydrocodone Bitart/Acetaminophen ([place] 10/325) 1 tab PO Q6H PRN PRN Reason: Pain Last Admin: 09/30/17 20:31 Dose: 1 tab Albuterol Sulfate (Albuterol Sulfate) 0.63 mg NEB Q4H PRN PRN Reason: Wheezing Albuterol Sulfate (Proventil Hfa) 2 puff INH Q4H PRN PRN Reason: SOB &/or Wheezing Aspirin (Ecotrin) 81 mg PO DAILY [facility] Last Admin: 09/30/17 08:56 Dose: 81 mg Calcium Carbonate (Caltrate) 1,200 mg PO DAILY [facility] Last Admin: 09/30/17 13:06 Dose: Not Given Cholecalciferol (Vitamin D3) 1,000 units PO DAILY [facility] Last Admin: 09/30/17 08:55 Dose: 1,000 units Clonidine (Catapres) 0.1 mg PO Q4H PRN PRN Reason: Systolic BP > 180 Cyclobenzaprine HCl (Flexeril) 10 mg PO TIDPRN PRN PRN Reason: Muscle Spasm Diphenhydramine HCl (Benadryl) 25 mg PO Q6H PRN PRN Reason: Itching Estradiol (Estrace) 0.5 mg PO DAILY [facility] Last Admin: 09/30/17 08:56 Dose: 0.5 mg Hydralazine HCl (Apresoline) 10 mg SLOW IVP Q4H PRN PRN Reason: Systolic BP > 180 Potassium Chloride/Dextrose/Sod Cl (D5 1/2 Ns W/20 Meq Kcl) 1,000 mls @ 75 mls/ hr IV .[id number] [facility] Last Admin: 09/30/17 16:32 Dose: 1,000 mls Promethazine HCl 25 mg/ Sodium (Chloride) 101 mls @ 404 mls/hr IVPB Q6H PRN PRN Reason: Nausea Last Admin: 09/30/17 19:13 Dose: 101 mls Iron/Minerals/Multivitamins (Theragran M) 1 tab PO DAILY [facility] Last Admin: 09/30/17 08:55 Dose: 1 tab Levothyroxine Sodium (Synthroid) 112 mcg PO 0600 [facility] Last Admin: 09/30/17 04:54 Dose: 112 mcg Loperamide HCl (Imodium) 2 mg PO PRN PRN PRN Reason: Diarrhea/Loose Stools Last Admin: 09/30/17 18:57 Dose: 2 mg Loratadine (Claritin) 10 mg PO DAILY [facility] Last Admin: 09/30/17 08:55 Dose: 10 mg Mometasone Furoate/Formoterol Fumar (Dulera 200 Mcg/5 Mcg Inhaler) 1 puff INH BID-RT [facility] Last Admin: 09/30/17 18:24 Dose: 1 puff Montelukast Sodium (Singulair) 10 mg PO QPM [facility] Last Admin: 09/30/17 20:32 Dose: 10 mg Nystatin (Mycostatin Powder) 1 gm TOP TID [facility] Last Admin: 09/30/17 20:32 Dose: 1 gm Pantoprazole Sodium (Protonix) 40 mg PO BID [facility] Last Admin: 09/30/17 20:31 Dose: 40 mg Sodium Chloride (Flush - Normal Saline) 10 ml IVF Q12HR [facility] Last Admin: 09/30/17 20:32 Dose: Not Given Sodium Chloride (Flush - Normal Saline) 10 ml IVF PRN PRN PRN Reason: Saline Flush Trazodone HCl (Desyrel) 100 mg PO HSPRN PRN PRN Reason: sleep
[2017-09-29] MEDS: Levothyroxine Sodium 112 MCG TAB PO SCH (04:49)
[2017-09-29] MEDS: Ciprofloxacin 500 MG TAB PO SCH (04:49)
[2017-09-29 05:37] LABS: Anion Gap 5 mmol/L (10-20); BUN (Urea Nitrogen) 6 mg/dL (9.8-20.1); Calc. Creatinine Clearance 130 mL/min (70-130); Carbon Dioxide 25 mmol/L (23-31); Chloride 114 mmol/L (98-107); Estimated GFR-MDRD 85; Glucose 78 mg/dL (80-115); Potassium 3.9 mmol/L (3.5-5.1); Sodium 140 mmol/L (136-145)
[2017-09-29] MEDS: Mometasone/Formoterol 120 PUFF INHALER INH SCH ×2 (07:19→18:09)
[2017-09-29] MEDS: Montelukast Sodium 10 mg Tablet PO SCH ×3 (08:18→19:44)
[2017-09-29] MEDS: Multivitamin W/ Minerals 1 TAB PO SCH (08:18)
[2017-09-29] MEDS: Vancomycin HCl 750 MG in Sodium Chloride 0.9% 250 ML 250 ML IVPB SCH (08:18)
[2017-09-29] MEDS: Calcium Carbonate 600 MG TAB PO SCH (08:19)
[2017-09-29] MEDS: Loratadine 10 MG TAB PO SCH (08:19)
[2017-09-29] MEDS: Estradiol 1 MG TAB PO SCH (08:19)
[2017-09-29] MEDS: Nystatin Powder 15 GM BOT TOP SCH ×3 (08:20→19:45)
[2017-09-29] MEDS: Aspirin 81 mg Enteric Coated Tablet PO SCH (08:20)
[2017-09-29] MEDS: HYDROcodone/Acetaminophen 10/325 mg Tablet PO PRN ×2 (08:26→14:25)
--- NOTE | 2017-09-29 11:16 | PDOC.PN ---
- Subjective Encounter Start Date: 09/29/17 Encounter Start Time: 11:15 Subjective: nsg notes rev, kady ovn, no new c/o, didn't sleep well overnight -: @ bedside. pt working with ICS up to 1000cc + still -: not OOB since yday - Objective Resuscitation Status: Resuscitation Status FULL:Full Resuscitation Vital Signs & Weight: Vital Signs (12 hours) Temp Pulse Resp BP Pulse Ox 09/29/17 08:00 98.2 F 85 20 119/72 98 09/29/17 07:19 87 15 98 Weight Admit Weight 221 lb Weight 221 lb I&O: 09/28/17 09/29/17 09/30/17 06:59 06:59 06:59 Intake Total 2830 3300 Output Total 1 Balance 2829 3300 Result Diagrams: 09/25/17 03:02 09/29/17 03:50 Additional Labs: Accuchecks 09/29/17 09/28/17 09/28/17 05:22 19:37 16:28 POC Glucose 77 109 64 L 09/28/17 11:19 POC Glucose 89 Phys Exam - Physical Examination Constitutional: NAD HEENT: PERRLA, moist MMs Neck: no nodes, no JVD Respiratory: no wheezing, no rales, no rhonchi, clear to auscultation bilateral Cardiovascular: RRR, no significant murmur, no rub Gastrointestinal: soft, non-tender, no distention, positive bowel sounds Musculoskeletal: no edema, pulses present Psychiatric: normal affect, A&O x 3 Dx/Plan (1) Cellulitis of upper extremity Code(s): L03.119 - CELLULITIS OF UNSPECIFIED PART OF LIMB Status: Acute Comment: b/l (2) UTI (urinary tract infection) Status: Acute Qualifiers: Urinary tract infection type: acute cystitis Hematuria presence: without hematuria Qualified Code(s): N30.00 - Acute cystitis without hematuria (3) FTT (failure to thrive) in adult Status: Chronic (4) Hypoalbuminemia due to protein-calorie malnutrition Code(s): E46 - UNSPECIFIED PROTEIN-CALORIE MALNUTRITION Status: Chronic (5) HTN (hypertension) Code(s): I10 - ESSENTIAL (PRIMARY) HYPERTENSION Status: Chronic Qualifiers: Hypertension type: essential hypertension Qualified Code(s): I10 - Essential (primary) hypertension - Plan * Septic presentation, improved * E Coli UTI, no other apparent infectious process identified yet * ciprofloxacin and vancomycin (for possible UE cellulitis, concern for MRSA) * appreciate ID c/s * CT abd/ pelv unremarkable sev prot-justin malnut with hypoalbuminemia w/ hx of gastric bypass * will need close outpatient follow up regarding nutritional status - this was d/w patient diet: as annette activity: OOB as annette, encourage, ICS, PT Disposition planning Review of Systems - Review of Systems Constitutional: chills - Medications/Allergies Allergies/Adverse Reactions: Allergies Allergy/AdvReac Type Severity Reaction Status Date / Time cephalexin monohydrate Allergy Intermediate Rash Verified 09/25/17 00:58 [From Keflex] celecoxib [From Celebrex] Allergy Verified 09/25/17 00:58 Cephalosporins Allergy Verified 09/25/17 00:58 codeine Allergy Verified 09/25/17 00:58 [From Tylenol-Codeine #3] NSAIDS (Non-Steroidal Allergy Verified 09/25/17 00:58 Anti-Inflamma Penicillins Allergy Verified 09/25/17 00:58 Sulfa (Sulfonamide Allergy Verified 09/25/17 00:58 Antibiotics) Medications: Current Medications Acetaminophen (Tylenol) 1,000 mg PO Q6H PRN PRN Reason: Headache/Fever or Mild Pain Hydrocodone Bitart/Acetaminophen ([place] 10/325) 1 tab PO Q6H PRN PRN Reason: Pain Last Admin: 09/29/17 08:26 Dose: 1 tab Albuterol Sulfate (Albuterol Sulfate) 0.63 mg NEB Q4H PRN PRN Reason: Wheezing Albuterol Sulfate (Proventil Hfa) 2 puff INH Q4H PRN PRN Reason: SOB &/or Wheezing Aspirin (Ecotrin) 81 mg PO DAILY [facility] Last Admin: 09/29/17 08:20 Dose: 81 mg Calcium Carbonate (Caltrate) 1,200 mg PO DAILY [facility] Last Admin: 09/29/17 08:19 Dose: 1,200 mg Cholecalciferol (Vitamin D3) 1,000 units PO DAILY [facility] Last Admin: 09/29/17 08:18 Dose: 1,000 units Ciprofloxacin (Cipro) 500 mg PO 0600,2000 [facility] Last Admin: 09/29/17 04:49 Dose: 500 mg Clonidine (Catapres) 0.1 mg PO Q4H PRN PRN Reason: Systolic BP > 180 Cyclobenzaprine HCl (Flexeril) 10 mg PO TIDPRN PRN PRN Reason: Muscle Spasm Diphenhydramine HCl (Benadryl) 25 mg PO Q6H PRN PRN Reason: Itching Estradiol (Estrace) 0.5 mg PO DAILY [facility] Last Admin: 09/29/17 08:19 Dose: 0.5 mg Hydralazine HCl (Apresoline) 10 mg SLOW IVP Q4H PRN PRN Reason: Systolic BP > 180 Potassium Chloride/Dextrose/Sod Cl (D5 1/2 Ns W/20 Meq Kcl) 1,000 mls @ 75 mls/ hr IV .[id number] [facility] Last Admin: 09/28/17 23:50 Dose: Not Given Promethazine HCl 25 mg/ Sodium (Chloride) 101 mls @ 404 mls/hr IVPB Q6H PRN PRN Reason: Nausea Last Admin: 09/28/17 20:12 Dose: 101 mls Vancomycin HCl 750 mg/ Sodium (Chloride) 250 mls @ 250 mls/hr IVPB Q12HR [facility] Last Admin: 09/29/17 08:18 Dose: 250 mls Iron/Minerals/Multivitamins (Theragran M) 1 tab PO DAILY [facility] Last Admin: 09/29/17 08:18 Dose: 1 tab Levothyroxine Sodium (Synthroid) 112 mcg PO 0600 [facility] Last Admin: 09/29/17 04:49 Dose: 112 mcg Loperamide HCl (Imodium) 2 mg PO PRN PRN PRN Reason: Diarrhea/Loose Stools Last Admin: 09/28/17 11:18 Dose: 2 mg Loratadine (Claritin) 10 mg PO DAILY [facility] Last Admin: 09/29/17 08:19 Dose: 10 mg Miscellaneous Medication (Pharmacy To Dose) 0 each IVPB PRN PRN PRN Reason: [facility] TO DOSE Mometasone Furoate/Formoterol Fumar (Dulera 200 Mcg/5 Mcg Inhaler) 1 puff INH BID-RT [facility] Last Admin: 09/29/17 07:19 Dose: 1 puff Montelukast Sodium (Singulair) 10 mg PO QPM [facility] Vortioxetine Hydrobromide [ Trintellix] 10 Mg 10 mg PO DAILY [facility] Nystatin (Mycostatin Powder) 1 gm TOP TID [facility] Last Admin: 09/29/17 08:20 Dose: 1 gm Pantoprazole Sodium (Protonix) 40 mg PO BID [facility] Last Admin: 09/29/17 08:19 Dose: 40 mg Sodium Chloride (Flush - Normal Saline) 10 ml IVF Q12HR [facility] Last Admin: 09/29/17 08:20 Dose: Not Given Sodium Chloride (Flush - Normal Saline) 10 ml IVF PRN PRN PRN Reason: Saline Flush Trazodone HCl (Desyrel) 100 mg PO HSPRN PRN PRN Reason: sleep
[2017-09-29] MEDS: D5 1/2 NS w/20 mEq KCL 1,000 ML IV SCH (14:18)
[2017-09-29] MEDS: Loperamide HCl 2 MG CAP PO PRN (14:21)
[2017-09-29] MEDS: Promethazine HCl 25 MG in Sodium Chloride 0.9% 100 ML IVPB PRN (16:27)
--- NOTE | 2017-09-29 16:51 | PRG ---
DATE OF SERVICE: 09/29/2017 SUBJECTIVE: Ms. Ricks is feeling a little better, still unable to eat properly because of epigastric pain every time she eat something. No diarrhea. No respiratory symptoms. OBJECTIVE: VITAL SIGNS: Temperature max 98.3. She is awake, appears chronically ill. HEENT: Ocular movements conjugate. NECK: Supple. LUNGS: With symmetric air entry. HEART: S1 and S2, regular rate. No S3 or S4. ABDOMEN: With no tenderness. EXTREMITIES: She is moving extremities equally. LABORATORY DATA: White cell count 6.0, hemoglobin 11, MCV 107. The vitamin B12 is 938. The serum c opper was 32 which is less than half the minimum serum level considered normal. Microbiology is nega tive. ASSESSMENT AND DISCUSSION: Gastric bypass surgery; severe malnutrition with micronutrient deficiency ; fever reported, but not documented yet; scratches from pet dogs with possible minor cellulitis. Th e copper level was markedly low and she probably has other cofactor deficiencies. She would need eleanor e kind of dietary management to improve her nutritional input. She may need parenteral replacement o f critical cofactors. Discontinue antimicrobial therapy at this point in time.
[2017-09-30] MEDS: Levothyroxine Sodium 112 MCG TAB PO SCH (04:54)
[2017-09-30] MEDS: D5 1/2 NS w/20 mEq KCL 1,000 ML IV SCH ×2 (04:54→16:32)
[2017-09-30] MEDS: Mometasone/Formoterol 120 PUFF INHALER INH SCH ×2 (07:09→18:24)
[2017-09-30] MEDS: Multivitamin W/ Minerals 1 TAB PO SCH (08:55)
[2017-09-30] MEDS: Loratadine 10 MG TAB PO SCH (08:55)
[2017-09-30] MEDS: Estradiol 1 MG TAB PO SCH (08:56)
[2017-09-30] MEDS: Aspirin 81 mg Enteric Coated Tablet PO SCH (08:56)
[2017-09-30] MEDS: HYDROcodone/Acetaminophen 10/325 mg Tablet PO PRN ×2 (09:02→20:31)
[2017-09-30] MEDS: Nystatin Powder 15 GM BOT TOP SCH ×3 (09:04→20:32)
[2017-09-30] MEDS: Promethazine HCl 25 MG in Sodium Chloride 0.9% 100 ML IVPB PRN ×2 (13:03→19:13)
[2017-09-30] MEDS: Calcium Carbonate 600 MG TAB PO SCH (13:06)
[2017-09-30] MEDS: Loperamide HCl 2 MG CAP PO PRN (18:57)
[2017-09-30] MEDS: Montelukast Sodium 10 mg Tablet PO SCH (20:32)
--- NOTE | 2017-09-30 23:19 | PDOC.PN ---
- Subjective Encounter Start Date: 09/30/17 Encounter Start Time: 13:00 Subjective: nsg notes rev, kady ovn - was able to wean off O2, @ bedside -: pt sleeping and c/o sleepiness but is arousable and appropriate, still c/o -: poor appetite, nausea, weakness - Objective Resuscitation Status: Resuscitation Status FULL:Full Resuscitation Vital Signs & Weight: Vital Signs (12 hours) Temp Pulse Resp BP BP Pulse Ox 09/30/17 19:22 98.2 F 105 H 20 09/30/17 19:06 98.2 F 105 H 20 111/73 99 09/30/17 18:24 105 H 16 09/30/17 16:00 97.6 F 105 H 20 111/79 99 09/30/17 12:41 97.2 F L 105 H 20 117/71 99 Weight Admit Weight 221 lb Weight 221 lb 8.257 oz I&O: 09/29/17 09/30/17 10/01/17 06:59 06:59 06:59 Intake Total 3300 3650 2250 Balance 3300 3650 2250 Result Diagrams: 09/25/17 03:02 09/29/17 03:50 Additional Labs: Accuchecks 09/30/17 09/30/17 09/30/17 20:32 16:17 11:17 POC Glucose 75 68 L 99 09/30/17 04:57 POC Glucose 83 Phys Exam - Physical Examination Constitutional: NAD HEENT: PERRLA, moist MMs, sclera anicteric Neck: no nodes Respiratory: no wheezing, no rales, no rhonchi, clear to auscultation bilateral Cardiovascular: RRR, no significant murmur, no rub Gastrointestinal: soft, positive bowel sounds obese Musculoskeletal: no edema, pulses present Neurological: moves all 4 limbs Psychiatric: normal affect, A&O x 3 Dx/Plan (1) Cellulitis of upper extremity Code(s): L03.119 - CELLULITIS OF UNSPECIFIED PART OF LIMB Status: Acute Comment: b/l (2) UTI (urinary tract infection) Status: Acute Qualifiers: Urinary tract infection type: acute cystitis Hematuria presence: without hematuria Qualified Code(s): N30.00 - Acute cystitis without hematuria (3) FTT (failure to thrive) in adult Status: Chronic (4) Hypoalbuminemia due to protein-calorie malnutrition Code(s): E46 - UNSPECIFIED PROTEIN-CALORIE MALNUTRITION Status: Chronic (5) HTN (hypertension) Code(s): I10 - ESSENTIAL (PRIMARY) HYPERTENSION Status: Chronic Qualifiers: Hypertension type: essential hypertension Qualified Code(s): I10 - Essential (primary) hypertension - Plan * Septic presentation, resolved * E Coli UTI, no other apparent infectious process identified yet * appreciate ID c/s - de-escalation of antibiotic regimen * CT abd/ pelv unremarkable sev prot-justin malnut with hypoalbuminemia w/ hx of gastric bypass * will need close outpatient follow up regarding nutritional status - this was d/w patient * pt so far declined for rehab diet: as annette activity: OOB as annette, encourage, ICS, PT Disposition planning Review of Systems - Medications/Allergies Allergies/Adverse Reactions: Allergies Allergy/AdvReac Type Severity Reaction Status Date / Time cephalexin monohydrate Allergy Intermediate Rash Verified 09/25/17 00:58 [From Keflex] celecoxib [From Celebrex] Allergy Verified 09/25/17 00:58 Cephalosporins Allergy Verified 09/25/17 00:58 codeine Allergy Verified 09/25/17 00:58 [From Tylenol-Codeine #3] NSAIDS (Non-Steroidal Allergy Verified 09/25/17 00:58 Anti-Inflamma Penicillins Allergy Verified 09/25/17 00:58 Sulfa (Sulfonamide Allergy Verified 09/25/17 00:58 Antibiotics) Medications: Current Medications Acetaminophen (Tylenol) 1,000 mg PO Q6H PRN PRN Reason: Headache/Fever or Mild Pain Hydrocodone Bitart/Acetaminophen ([place] 10/325) 1 tab PO Q6H PRN PRN Reason: Pain Last Admin: 09/30/17 20:31 Dose: 1 tab Albuterol Sulfate (Albuterol Sulfate) 0.63 mg NEB Q4H PRN PRN Reason: Wheezing Albuterol Sulfate (Proventil Hfa) 2 puff INH Q4H PRN PRN Reason: SOB &/or Wheezing Aspirin (Ecotrin) 81 mg PO DAILY [facility] Last Admin: 09/30/17 08:56 Dose: 81 mg Calcium Carbonate (Caltrate) 1,200 mg PO DAILY [facility] Last Admin: 09/30/17 13:06 Dose: Not Given Cholecalciferol (Vitamin D3) 1,000 units PO DAILY [facility] Last Admin: 09/30/17 08:55 Dose: 1,000 units Clonidine (Catapres) 0.1 mg PO Q4H PRN PRN Reason: Systolic BP > 180 Cyclobenzaprine HCl (Flexeril) 10 mg PO TIDPRN PRN PRN Reason: Muscle Spasm Diphenhydramine HCl (Benadryl) 25 mg PO Q6H PRN PRN Reason: Itching Estradiol (Estrace) 0.5 mg PO DAILY [facility] Last Admin: 09/30/17 08:56 Dose: 0.5 mg Hydralazine HCl (Apresoline) 10 mg SLOW IVP Q4H PRN PRN Reason: Systolic BP > 180 Potassium Chloride/Dextrose/Sod Cl (D5 1/2 Ns W/20 Meq Kcl) 1,000 mls @ 75 mls/ hr IV .[id number] [facility] Last Admin: 09/30/17 16:32 Dose: 1,000 mls Promethazine HCl 25 mg/ Sodium (Chloride) 101 mls @ 404 mls/hr IVPB Q6H PRN PRN Reason: Nausea Last Admin: 09/30/17 19:13 Dose: 101 mls Iron/Minerals/Multivitamins (Theragran M) 1 tab PO DAILY [facility] Last Admin: 09/30/17 08:55 Dose: 1 tab Levothyroxine Sodium (Synthroid) 112 mcg PO 0600 [facility] Last Admin: 09/30/17 04:54 Dose: 112 mcg Loperamide HCl (Imodium) 2 mg PO PRN PRN PRN Reason: Diarrhea/Loose Stools Last Admin: 09/30/17 18:57 Dose: 2 mg Loratadine (Claritin) 10 mg PO DAILY [facility] Last Admin: 09/30/17 08:55 Dose: 10 mg Mometasone Furoate/Formoterol Fumar (Dulera 200 Mcg/5 Mcg Inhaler) 1 puff INH BID-RT [facility] Last Admin: 09/30/17 18:24 Dose: 1 puff Montelukast Sodium (Singulair) 10 mg PO QPM [facility] Last Admin: 09/30/17 20:32 Dose: 10 mg Nystatin (Mycostatin Powder) 1 gm TOP TID [facility] Last Admin: 09/30/17 20:32 Dose: 1 gm Pantoprazole Sodium (Protonix) 40 mg PO BID [facility] Last Admin: 09/30/17 20:31 Dose: 40 mg Sodium Chloride (Flush - Normal Saline) 10 ml IVF Q12HR [facility] Last Admin: 09/30/17 20:32 Dose: Not Given Sodium Chloride (Flush - Normal Saline) 10 ml IVF PRN PRN PRN Reason: Saline Flush Trazodone HCl (Desyrel) 100 mg PO HSPRN PRN PRN Reason: sleep
[2017-10-01] MEDS: HYDROcodone/Acetaminophen 10/325 mg Tablet PO PRN ×3 (05:25→19:24)
[2017-10-01] MEDS: Levothyroxine Sodium 112 MCG TAB PO SCH (05:26)
[2017-10-01] MEDS: D5 1/2 NS w/20 mEq KCL 1,000 ML IV SCH ×2 (06:20→11:16)
[2017-10-01] MEDS: Mometasone/Formoterol 120 PUFF INHALER INH SCH ×2 (07:08→19:08)
[2017-10-01] MEDS: Loratadine 10 MG TAB PO SCH (08:20)
[2017-10-01] MEDS: Calcium Carbonate 600 MG TAB PO SCH (08:20)
[2017-10-01] MEDS: Aspirin 81 mg Enteric Coated Tablet PO SCH (08:21)
[2017-10-01] MEDS: Multivitamin W/ Minerals 1 TAB PO SCH (08:21)
[2017-10-01] MEDS: Estradiol 1 MG TAB PO SCH (08:47)
[2017-10-01] MEDS: Nystatin Powder 15 GM BOT TOP SCH ×3 (08:47→20:08)
[2017-10-01] MEDS: Promethazine HCl 25 MG in Sodium Chloride 0.9% 100 ML IVPB PRN (10:48)
--- NOTE | 2017-10-01 13:52 | RAD ---
UPRIGHT PORTABLE CHEST ONE VIEW: HISTORY: A 61-year-old female. Rule out pleural effusion. Follow-up exam from 09/24/2017, at which time the patient had fever and cellulitis. FINDINGS: There is a persistent opacity in the right lateral chest with some blunting of the right costophrenic angle, suggesting that this may well be pleural or at least partially pleural in etiology. In addit ion, there is some increased density in the left lower chest retrocardiac region, raising concern for left lower lobe pneumonia and/or atelectasis, as well as what may be a small left pleural effusion. IMPRESSION: Some persistent, slightly more prominent, lateral opacity changes in the right mid and lower chest, w ith some right costophrenic angle blunting, probably mostly pleural. In addition, increased density in the left retrocardiac region, with the left hemidiaphragm being obscured, raising concern for left lower lobe pneumonia and/or atelectasis. Consider follow-up chest CT scan for further assessment. POS: NEAL
--- NOTE | 2017-10-01 15:15 | PDOC.PN ---
- Subjective Encounter Start Date: 10/01/17 Encounter Start Time: 15:13 CC: Dyspnea Sub: Pt says she feels better - Objective Resuscitation Status: Resuscitation Status FULL:Full Resuscitation Vital Signs & Weight: Vital Signs (12 hours) Temp Pulse Resp BP Pulse Ox 10/01/17 08:00 97.4 F L 64 16 123/88 92 L Weight Admit Weight 221 lb Weight 221 lb 8.257 oz I&O: 09/30/17 10/01/17 10/02/17 06:59 06:59 06:59 Intake Total 3650 3750 Balance 3650 3750 Result Diagrams: 09/25/17 03:02 09/29/17 03:50 Additional Labs: Accuchecks 10/01/17 10/01/17 10/01/17 11:18 06:00 05:24 POC Glucose 88 75 56 L* 09/30/17 09/30/17 20:32 16:17 POC Glucose 75 68 L Dx/Plan - Plan Physical Examination Constitutional: NAD HEENT: PERRLA, moist MMs, sclera anicteric Neck: no nodes Respiratory: no wheezing, no rales, positive crackle,s diminished at bases Cardiovascular: RRR, no significant murmur, no rub Gastrointestinal: soft, positive bowel sounds, no guarding Musculoskeletal: no edema, pulses present Neurological: moves all 4 limbs Psychiatric: normal affect, A&O x 3 Dx/Plan (1) Cellulitis of upper extremity Code(s): L03.119 - CELLULITIS OF UNSPECIFIED PART OF LIMB Status: Acute Comment: b/l (2) UTI (urinary tract infection) Status: Acute Qualifiers: Urinary tract infection type: acute cystitis Hematuria presence: without hematuria Qualified Code(s): N30.00 - Acute cystitis without hematuria (3) FTT (failure to thrive) in adult Status: Chronic (4) Hypoalbuminemia due to protein-calorie malnutrition Code(s): E46 - UNSPECIFIED PROTEIN-CALORIE MALNUTRITION Status: Chronic (5) HTN (hypertension) Code(s): I10 - ESSENTIAL (PRIMARY) HYPERTENSION Status: Chronic Qualifiers: Hypertension type: essential hypertension Qualified Code(s): I10 - Essential (primary) hypertension 6. Pleural effusion + R/O pneumonia - Plan * Septic presentation, resolved * E Coli UTI, * appreciate ID c/s -off abx * CT abd/ pelv unremarkable sev prot-justin malnut with hypoalbuminemia w/ hx of gastric bypass * encourage protein intake Pleural effusion + Pneumonia: Will check ct chest to evaluate infiltrated diet: as annette activity: OOB as annette, encourage, ICS, PT Disposition SNF eval pending
--- NOTE | 2017-10-01 15:53 | CT ---
CT CHEST NONCONTRAST 10/01/17 HISTORY: Pneumonia. Dyspnea. COMPARISON: Chest radiograph from earlier on the same date. CT 07/24/17. FINDINGS: There is a moderate amount of left pleural fluid with mild atelectasis at the left base. Minimal righ t pleural fluid and basilar atelectasis are present. No lobar consolidation. No evidence of pneumotho rax. Lack of contrast limits evaluation for other abnormalities. Small pericardial effusion is apparent. L iver is diffusely hypodense. Within the partially visualized upper abdomen, the gallbladder is surgic ally absent. There are postoperative changes of the stomach. IMPRESSION: 1. Moderate left and small right pleural effusions with associated bibasilar atelectasis. No lob ar consolidation is apparent. 2. Very small pericardial effusion. 3. Atherosclerosis. 4. Hepatic steatosis. POS: JESSEH
[2017-10-01] MEDS: Montelukast Sodium 10 mg Tablet PO SCH (19:23)
[2017-10-01] MEDS: Loperamide HCl 2 MG CAP PO PRN (19:23)
[2017-10-02] MEDS: HYDROcodone/Acetaminophen 10/325 mg Tablet PO PRN ×2 (04:17→18:23)
[2017-10-02] MEDS: Levothyroxine Sodium 112 MCG TAB PO SCH (04:17)
[2017-10-02] MEDS: Mometasone/Formoterol 120 PUFF INHALER INH SCH ×2 (07:22→19:16)
[2017-10-02] MEDS: D5 1/2 NS w/20 mEq KCL 1,000 ML IV SCH ×2 (07:29→21:13)
--- NOTE | 2017-10-02 08:24 | PDOC.PN ---
- Subjective Encounter Start Date: 10/02/17 Encounter Start Time: 09:00 Subjective: Patient with chronic dyspepsia after eating, progressive over 6 months. -: Dyspnea on exertion. No other complaints. - Objective Resuscitation Status: Resuscitation Status FULL:Full Resuscitation MAR Reviewed: Yes Vital Signs & Weight: Vital Signs (12 hours) Temp Pulse Resp BP Pulse Ox 10/02/17 07:22 98 15 96 10/02/17 07:21 97.5 F L 83 16 112/98 H 98 Weight Admit Weight 221 lb Weight 221 lb 8.257 oz I&O: 10/01/17 10/02/17 10/03/17 06:59 06:59 06:59 Intake Total 3750 3300 Balance 3750 3300 Result Diagrams: 09/25/17 03:02 09/29/17 03:50 Additional Labs: Accuchecks 10/01/17 10/01/17 10/01/17 19:23 16:22 11:18 POC Glucose 64 L 96 88 Phys Exam - Physical Examination Constitutional: NAD Obese HEENT: PERRLA Respiratory: no wheezing, no rales, no rhonchi, clear to auscultation bilateral Cardiovascular: RRR, no significant murmur Gastrointestinal: soft, positive bowel sounds mild TTP ALEN trace edema Neurological: non-focal, moves all 4 limbs Psychiatric: normal affect, A&O x 3 Dx/Plan (1) Sepsis Code(s): A41.9 - SEPSIS, UNSPECIFIED ORGANISM Status: Resolved Qualifiers: Sepsis type: sepsis due to unspecified organism Qualified Code(s): A41.9 - Sepsis, unspecified organism Comment: Urine with E. coli, all blood culture negative, off abx without return of fever (2) FTT (failure to thrive) in adult Status: Chronic (3) Hypoalbuminemia due to protein-calorie malnutrition Code(s): E46 - UNSPECIFIED PROTEIN-CALORIE MALNUTRITION Status: Chronic (4) HTN (hypertension) Code(s): I10 - ESSENTIAL (PRIMARY) HYPERTENSION Status: Chronic Qualifiers: Hypertension type: essential hypertension Qualified Code(s): I10 - Essential (primary) hypertension (5) Hypothyroidism Code(s): E03.9 - HYPOTHYROIDISM, UNSPECIFIED Status: Chronic Qualifiers: Hypothyroidism type: unspecified Qualified Code(s): E03.9 - Hypothyroidism , unspecified (6) Pleural effusion Code(s): J90 - PLEURAL EFFUSION, NOT ELSEWHERE CLASSIFIED Status: Acute Comment: secondary to low albumin and anasarca, neg BNP, no evidence pneumonia (7) S/P gastric bypass Code(s): Z98.84 - BARIATRIC SURGERY STATUS Status: Chronic - Plan cont current plan of care, PT/OT rehab/SNF placement -: Will need outpatient GI followup. * . - Discharge Day Encounter end time: 09:35
[2017-10-02] MEDS: Calcium Carbonate 600 MG TAB PO SCH (08:45)
[2017-10-02] MEDS: Multivitamin W/ Minerals 1 TAB PO SCH (08:46)
[2017-10-02] MEDS: Aspirin 81 mg Enteric Coated Tablet PO SCH (08:47)
[2017-10-02] MEDS: Loratadine 10 MG TAB PO SCH (08:47)
[2017-10-02] MEDS: Nystatin Powder 15 GM BOT TOP SCH ×3 (08:49→21:13)
[2017-10-02] MEDS: Estradiol 1 MG TAB PO SCH (09:04)
[2017-10-02] MEDS: Promethazine HCl 25 MG in Sodium Chloride 0.9% 100 ML IVPB PRN ×2 (09:06→19:47)
[2017-10-02] MEDS: Lactase 9,000 UNIT CHEWABLE TAB PO SCH ×2 (11:11→16:55)
[2017-10-02 12:01] VITALS: BMI 38.0
[2017-10-02] MEDS: Montelukast Sodium 10 mg Tablet PO SCH (21:12)
[2017-10-03] MEDS: Levothyroxine Sodium 112 MCG TAB PO SCH (05:20)
[2017-10-03] MEDS: Mometasone/Formoterol 120 PUFF INHALER INH SCH ×2 (07:20→18:37)
[2017-10-03] MEDS: Multivitamin W/ Minerals 1 TAB PO SCH (08:15)
[2017-10-03] MEDS: Lactase 9,000 UNIT CHEWABLE TAB PO SCH ×3 (08:15→17:49)
[2017-10-03] MEDS: Estradiol 1 MG TAB PO SCH (08:15)
[2017-10-03] MEDS: Loratadine 10 MG TAB PO SCH (08:16)
[2017-10-03] MEDS: Aspirin 81 mg Enteric Coated Tablet PO SCH (08:16)
[2017-10-03] MEDS: Calcium Carbonate 600 MG TAB PO SCH (08:16)
[2017-10-03] MEDS: Nystatin Powder 15 GM BOT TOP SCH ×3 (08:16→20:20)
[2017-10-03] MEDS: HYDROcodone/Acetaminophen 10/325 mg Tablet PO PRN ×2 (08:18→18:44)
[2017-10-03] MEDS: D5 1/2 NS w/20 mEq KCL 1,000 ML IV SCH (08:19)
[2017-10-03] MEDS: Promethazine HCl 25 MG in Sodium Chloride 0.9% 100 ML IVPB PRN (11:37)
--- NOTE | 2017-10-03 14:28 | PDOC.PN ---
- Subjective Encounter Start Date: 10/03/17 Encounter Start Time: 10:00 patient is sen today, still very nauseas, she wants to see a GI/ baratric Sugery to evalauate her gastric Bypass as she is havong difficulty with nausea and malabsortion - Objective Resuscitation Status: Resuscitation Status FULL:Full Resuscitation MAR Reviewed: Yes Vital Signs & Weight: Vital Signs (12 hours) Temp Pulse Resp BP Pulse Ox 10/03/17 08:00 97.3 F L 103 H 20 123/85 99 10/03/17 07:20 83 15 98 Weight Admit Weight 221 lb Weight 221 lb 8.257 oz I&O: 10/02/17 10/03/17 10/04/17 06:59 06:59 06:59 Intake Total 3300 3800 Balance 3300 3800 Result Diagrams: 09/25/17 03:02 09/29/17 03:50 Additional Labs: Accuchecks 10/03/17 10/02/17 10/02/17 05:45 21:02 16:08 POC Glucose 102 93 80 Radiology Reviewed by me: Yes Phys Exam - Physical Examination HEENT: PERRLA, moist MMs Neck: no nodes, no JVD Respiratory: no wheezing, no rales Cardiovascular: RRR, no significant murmur Gastrointestinal: soft, non-tender Musculoskeletal: no edema, pulses present Neurological: non-focal, normal sensation Dx/Plan (1) Cellulitis of upper extremity Code(s): L03.119 - CELLULITIS OF UNSPECIFIED PART OF LIMB Status: Acute Qualifiers: Laterality: unspecified laterality Qualified Code(s): L03.119 - Cellulitis of unspecified part of limb Comment: b/l (2) Pleural effusion Code(s): J90 - PLEURAL EFFUSION, NOT ELSEWHERE CLASSIFIED Status: Acute Comment: secondary to low albumin and anasarca, neg BNP, no evidence pneumonia (3) UTI (urinary tract infection) Status: Acute Qualifiers: Urinary tract infection type: acute cystitis Hematuria presence: without hematuria Qualified Code(s): N30.00 - Acute cystitis without hematuria Comment: Completed Antibuitoics course. 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 (7) HTN (hypertension) Code(s): I10 - ESSENTIAL (PRIMARY) HYPERTENSION Status: Chronic Qualifiers: Hypertension type: essential hypertension Qualified Code(s): I10 - Essential (primary) hypertension Comment: stbale. at goal (8) Hypothyroidism Code(s): E03.9 - HYPOTHYROIDISM, UNSPECIFIED Status: Chronic Qualifiers: Hypothyroidism type: unspecified Qualified Code(s): E03.9 - Hypothyroidism , unspecified - Plan cont current plan of care, plan discussed w/ family, PT/OT, DVT proph w/SCDs * . - Discharge Day Encounter end time: 10:35 Review of Systems - Review of Systems Constitutional: negative: fever, chills, sweats, weakness, malaise, other Eyes: negative: Pain, Vision Change, Conjunctivae Inflammation, Eyelid Inflammation, Redness, Other ENT: negative: Ear Pain, Ear Discharge, Nose Pain, Nose Discharge, Nose Congestion, Mouth Pain, Mouth Swelling, Throat Pain, Throat Swelling, Other Respiratory: negative: Cough, Dry, Shortness of Breath, Hemoptysis, SOB with Excertion, Pleuritic Pain, Sputum, Wheezing Cardiovascular: negative: chest pain, palpitations, orthopnea, paroxysmal nocturnal dyspnea, edema, light headedness, other Gastrointestinal: negative: Nausea, Vomiting, Abdominal Pain, Diarrhea, Constipation, Melena, Hematochezia, Other Genitourinary: negative: Dysuria, Frequency, Incontinence, Hematuria, Retention , Other Musculoskeletal: negative: Neck Pain, Shoulder Pain, Arm Pain, Back Pain, Hand Pain, Leg Pain, Foot Pain, Other - Medications/Allergies Allergies/Adverse Reactions: Allergies Allergy/AdvReac Type Severity Reaction Status Date / Time cephalexin monohydrate Allergy Intermediate Rash Verified 09/25/17 00:58 [From Keflex] celecoxib [From Celebrex] Allergy Verified 09/25/17 00:58 Cephalosporins Allergy Verified 09/25/17 00:58 codeine Allergy Verified 09/25/17 00:58 [From Tylenol-Codeine #3] NSAIDS (Non-Steroidal Allergy Verified 09/25/17 00:58 Anti-Inflamma Penicillins Allergy Verified 09/25/17 00:58 Sulfa (Sulfonamide Allergy Verified 09/25/17 00:58 Antibiotics) Medications: Current Medications Acetaminophen (Tylenol) 1,000 mg PO Q6H PRN PRN Reason: Headache/Fever or Mild Pain Hydrocodone Bitart/Acetaminophen ([place] 10/325) 1 tab PO Q6H PRN PRN Reason: Pain Last Admin: 10/03/17 08:18 Dose: 1 tab Albuterol Sulfate (Albuterol Sulfate) 0.63 mg NEB Q4H PRN PRN Reason: Wheezing Albuterol Sulfate (Proventil Hfa) 2 puff INH Q4H PRN PRN Reason: SOB &/or Wheezing Aspirin (Ecotrin) 81 mg PO DAILY [facility] Last Admin: 10/03/17 08:16 Dose: 81 mg Calcium Carbonate (Caltrate) 1,200 mg PO DAILY [facility] Last Admin: 10/03/17 08:16 Dose: 1,200 mg Cholecalciferol (Vitamin D3) 1,000 units PO DAILY [facility] Last Admin: 10/03/17 08:16 Dose: 1,000 units Clonidine (Catapres) 0.1 mg PO Q4H PRN PRN Reason: Systolic BP > 180 Cyclobenzaprine HCl (Flexeril) 10 mg PO TIDPRN PRN PRN Reason: Muscle Spasm Diphenhydramine HCl (Benadryl) 25 mg PO Q6H PRN PRN Reason: Itching Estradiol (Estrace) 0.5 mg PO DAILY [facility] Last Admin: 10/03/17 08:15 Dose: 0.5 mg Hydralazine HCl (Apresoline) 10 mg SLOW IVP Q4H PRN PRN Reason: Systolic BP > 180 Potassium Chloride/Dextrose/Sod Cl (D5 1/2 Ns W/20 Meq Kcl) 1,000 mls @ 75 mls/ hr IV .[id number] [facility] Last Admin: 10/03/17 08:19 Dose: 1,000 mls Promethazine HCl 25 mg/ Sodium (Chloride) 101 mls @ 404 mls/hr IVPB Q6H PRN PRN Reason: Nausea Last Admin: 10/03/17 11:37 Dose: 101 mls Iron/Minerals/Multivitamins (Theragran M) 1 tab PO DAILY [facility] Last Admin: 10/03/17 08:15 Dose: 1 tab Lactase (Lactaid Fast Act) 9,000 unit PO TID-WM [facility] Last Admin: 10/03/17 11:39 Dose: 9,000 unit Levothyroxine Sodium (Synthroid) 112 mcg PO 0600 [facility] Last Admin: 10/03/17 05:20 Dose: 112 mcg Loperamide HCl (Imodium) 2 mg PO PRN PRN PRN Reason: Diarrhea/Loose Stools Last Admin: 10/01/17 19:23 Dose: 2 mg Loratadine (Claritin) 10 mg PO DAILY [facility] Last Admin: 10/03/17 08:16 Dose: 10 mg Mometasone Furoate/Formoterol Fumar (Dulera 200 Mcg/5 Mcg Inhaler) 1 puff INH BID-RT [facility] Last Admin: 10/03/17 07:20 Dose: 1 puff Montelukast Sodium (Singulair) 10 mg PO QPM [facility] Last Admin: 10/02/17 21:12 Dose: 10 mg Nystatin (Mycostatin Powder) 1 gm TOP TID [facility] Last Admin: 10/03/17 08:16 Dose: 1 gm Pantoprazole Sodium (Protonix) 40 mg PO BID [facility] Last Admin: 10/03/17 08:15 Dose: 40 mg Sodium Chloride (Flush - Normal Saline) 10 ml IVF Q12HR [facility] Last Admin: 10/03/17 08:16 Dose: Not Given Sodium Chloride (Flush - Normal Saline) 10 ml IVF PRN PRN PRN Reason: Saline Flush Trazodone HCl (Desyrel) 100 mg PO HSPRN PRN PRN Reason: sleep
[2017-10-03] MEDS: Thiamine HCl 200 MG/2 ML VIAL SLOW IVP SCH (20:19)
[2017-10-03] MEDS: Montelukast Sodium 10 mg Tablet PO SCH (20:19)
[2017-10-04] MEDS: D5 1/2 NS w/20 mEq KCL 1,000 ML IV SCH ×2 (01:24→15:02)
[2017-10-04] MEDS: HYDROcodone/Acetaminophen 10/325 mg Tablet PO PRN ×3 (05:51→21:17)
[2017-10-04] MEDS: Levothyroxine Sodium 112 MCG TAB PO SCH (05:52)
[2017-10-04] MEDS: Mometasone/Formoterol 120 PUFF INHALER INH SCH ×2 (06:16→19:42)
[2017-10-04] MEDS: Lactase 9,000 UNIT CHEWABLE TAB PO SCH ×3 (09:53→19:44)
[2017-10-04] MEDS: Multivitamin W/ Minerals 1 TAB PO SCH (09:53)
[2017-10-04] MEDS: Aspirin 81 mg Enteric Coated Tablet PO SCH (09:54)
[2017-10-04] MEDS: Calcium Carbonate 600 MG TAB PO SCH (09:54)
[2017-10-04] MEDS: Folic Acid 1 MG TAB PO SCH (09:54)
[2017-10-04] MEDS: Estradiol 1 MG TAB PO SCH (09:55)
[2017-10-04] MEDS: Loratadine 10 MG TAB PO SCH (09:58)
[2017-10-04] MEDS: Thiamine HCl 200 MG/2 ML VIAL SLOW IVP SCH ×2 (09:59→21:14)
[2017-10-04] MEDS: Multivit, Therapeutic 1 TAB PO SCH (10:01)
[2017-10-04] MEDS: Nystatin Powder 15 GM BOT TOP SCH ×3 (10:01→21:14)
[2017-10-04] MEDS: Montelukast Sodium 10 mg Tablet PO SCH (21:14)
[2017-10-05] MEDS: D5 1/2 NS w/20 mEq KCL 1,000 ML IV SCH ×2 (04:29→12:02)
[2017-10-05] MEDS: Levothyroxine Sodium 112 MCG TAB PO SCH (06:22)
[2017-10-05] MEDS: Estradiol 1 MG TAB PO SCH (07:50)
[2017-10-05] MEDS: Multivit, Therapeutic 1 TAB PO SCH (07:51)
[2017-10-05] MEDS: Folic Acid 1 MG TAB PO SCH (07:51)
[2017-10-05] MEDS: Lactase 9,000 UNIT CHEWABLE TAB PO SCH ×3 (07:52→16:32)
[2017-10-05] MEDS: Calcium Carbonate 600 MG TAB PO SCH (07:52)
[2017-10-05] MEDS: Loratadine 10 MG TAB PO SCH (07:53)
[2017-10-05] MEDS: Aspirin 81 mg Enteric Coated Tablet PO SCH (07:53)
[2017-10-05] MEDS: Thiamine HCl 200 MG/2 ML VIAL SLOW IVP SCH ×2 (07:54→20:12)
[2017-10-05] MEDS: Multivitamin W/ Minerals 1 TAB PO SCH (07:55)
[2017-10-05] MEDS: Nystatin Powder 15 GM BOT TOP SCH ×3 (07:55→20:14)
[2017-10-05] MEDS: Mometasone/Formoterol 120 PUFF INHALER INH SCH ×2 (08:21→18:31)
[2017-10-05] MEDS: Loperamide HCl 2 MG CAP PO PRN ×2 (11:06→18:28)
[2017-10-05] MEDS: Cyclobenzaprine 10 MG TAB PO PRN (11:06)
[2017-10-05] MEDS: HYDROcodone/Acetaminophen 10/325 mg Tablet PO PRN ×2 (13:09→20:12)
--- NOTE | 2017-10-05 14:34 | PDOC.PN ---
- Subjective Encounter Start Date: 10/04/17 Encounter Start Time: 15:00 Paitent is sen today, alert and oriented pt is waitning on SNF placmeent. Continue to Improve. - Objective Resuscitation Status: Resuscitation Status FULL:Full Resuscitation MAR Reviewed: Yes Vital Signs & Weight: Vital Signs (12 hours) Temp Pulse Resp BP Pulse Ox 10/05/17 08:21 82 16 99 10/05/17 08:00 98.1 F 82 16 10/05/17 07:26 98.1 F 96 16 117/80 97 Weight Admit Weight 221 lb Weight 221 lb 8.257 oz I&O: 10/04/17 10/05/17 10/06/17 06:59 06:59 06:59 Intake Total 1140 1380 Output Total 652 Balance 488 1380 Result Diagrams: 09/25/17 03:02 09/29/17 03:50 Additional Labs: Accuchecks 10/05/17 10/05/17 10/04/17 11:37 05:48 21:15 POC Glucose 79 88 81 10/04/17 15:45 POC Glucose 68 L Phys Exam - Physical Examination HEENT: PERRLA, moist MMs Neck: no nodes, no JVD Respiratory: no wheezing, no rales Cardiovascular: RRR, no significant murmur Gastrointestinal: soft, non-tender Musculoskeletal: no edema, pulses present Neurological: non-focal, normal sensation Dx/Plan (1) Cellulitis of upper extremity Code(s): L03.119 - CELLULITIS OF UNSPECIFIED PART OF LIMB Status: Acute Qualifiers: Laterality: unspecified laterality Comment: Improved Cellulitis, off of Antibiotics. (2) Pleural effusion Code(s): J90 - PLEURAL EFFUSION, NOT ELSEWHERE CLASSIFIED Status: Acute Comment: secondary to low albumin and anasarca, neg BNP, no evidence pneumonia (3) UTI (urinary tract infection) Status: Acute Qualifiers: Urinary tract infection type: acute cystitis Hematuria presence: without hematuria Qualified Code(s): N30.00 - Acute cystitis without hematuria Comment: Completed Antibuitoics course. 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 Brian jimenez, suggested Thiamine supplimentation for Now, Will see her in office after discharge. (6) GERD (gastroesophageal reflux disease) Code(s): K21.9 - GASTRO-ESOPHAGEAL REFLUX DISEASE WITHOUT ESOPHAGITIS Status: Chronic Qualifiers: Esophagitis presence: esophagitis presence not specified Qualified Code(s) : K21.9 - Gastro-esophageal reflux disease without esophagitis Comment: Continue with protonix. (7) HTN (hypertension) Code(s): I10 - ESSENTIAL (PRIMARY) HYPERTENSION Status: Chronic Qualifiers: Hypertension type: essential hypertension Qualified Code(s): I10 - Essential (primary) hypertension Comment: stbale. at goal (8) Hypothyroidism Code(s): E03.9 - HYPOTHYROIDISM, UNSPECIFIED Status: Chronic Qualifiers: Hypothyroidism type: unspecified Qualified Code(s): E03.9 - Hypothyroidism , unspecified - Plan cont current plan of care, PT/OT, social work professor, respiratory therapy, incentive spirometry, DVT proph w/lovenox * . - Discharge Day Encounter end time: 15:35 Review of Systems - Review of Systems Constitutional: weakness, malaise Eyes: negative: Pain, Vision Change, Conjunctivae Inflammation, Eyelid Inflammation, Redness, Other ENT: negative: Ear Pain, Ear Discharge, Nose Pain, Nose Discharge, Nose Congestion, Mouth Pain, Mouth Swelling, Throat Pain, Throat Swelling, Other Respiratory: negative: Cough, Dry, Shortness of Breath, Hemoptysis, SOB with Excertion, Pleuritic Pain, Sputum, Wheezing Cardiovascular: negative: chest pain, palpitations, orthopnea, paroxysmal nocturnal dyspnea, edema, light headedness, other Gastrointestinal: negative: Nausea, Vomiting, Abdominal Pain, Diarrhea, Constipation, Melena, Hematochezia, Other Genitourinary: negative: Dysuria, Frequency, Incontinence, Hematuria, Retention , Other Musculoskeletal: negative: Neck Pain, Shoulder Pain, Arm Pain, Back Pain, Hand Pain, Leg Pain, Foot Pain, Other - Medications/Allergies Allergies/Adverse Reactions: Allergies Allergy/AdvReac Type Severity Reaction Status Date / Time cephalexin monohydrate Allergy Intermediate Rash Verified 09/25/17 00:58 [From Keflex] celecoxib [From Celebrex] Allergy Verified 09/25/17 00:58 Cephalosporins Allergy Verified 09/25/17 00:58 codeine Allergy Verified 09/25/17 00:58 [From Tylenol-Codeine #3] NSAIDS (Non-Steroidal Allergy Verified 09/25/17 00:58 Anti-Inflamma Penicillins Allergy Verified 09/25/17 00:58 Sulfa (Sulfonamide Allergy Verified 09/25/17 00:58 Antibiotics) Medications: Current Medications Acetaminophen (Tylenol) 1,000 mg PO Q6H PRN PRN Reason: Headache/Fever or Mild Pain Hydrocodone Bitart/Acetaminophen ([place] 10/325) 1 tab PO Q6H PRN PRN Reason: Moderate Pain (4-6) Last Admin: 10/05/17 13:09 Dose: 1 tab Albuterol Sulfate (Albuterol Sulfate) 0.63 mg NEB Q4H PRN PRN Reason: Wheezing Albuterol Sulfate (Proventil Hfa) 2 puff INH Q4H PRN PRN Reason: SOB &/or Wheezing Aspirin (Ecotrin) 81 mg PO DAILY [facility] Last Admin: 10/05/17 07:53 Dose: 81 mg Calcium Carbonate (Caltrate) 1,200 mg PO DAILY [facility] Last Admin: 10/05/17 07:52 Dose: 1,200 mg Cholecalciferol (Vitamin D3) 1,000 units PO DAILY [facility] Last Admin: 10/05/17 07:53 Dose: 1,000 units Clonidine (Catapres) 0.1 mg PO Q4H PRN PRN Reason: Systolic BP > 180 Cyclobenzaprine HCl (Flexeril) 10 mg PO TIDPRN PRN PRN Reason: Muscle Spasm Last Admin: 10/05/17 11:06 Dose: 10 mg Diphenhydramine HCl (Benadryl) 25 mg PO Q6H PRN PRN Reason: Itching Estradiol (Estrace) 0.5 mg PO DAILY [facility] Last Admin: 10/05/17 07:50 Dose: 0.5 mg Folic Acid (Folvite) 1 mg PO DAILY [facility] Last Admin: 10/05/17 07:51 Dose: 1 mg Hydralazine HCl (Apresoline) 10 mg SLOW IVP Q4H PRN PRN Reason: Systolic BP > 180 Potassium Chloride/Dextrose/Sod Cl (D5 1/2 Ns W/20 Meq Kcl) 1,000 mls @ 75 mls/ hr IV .[id number] [facility] Last Admin: 10/05/17 12:02 Dose: 1,000 mls Promethazine HCl 25 mg/ Sodium (Chloride) 101 mls @ 404 mls/hr IVPB Q6H PRN PRN Reason: Nausea Last Admin: 10/03/17 11:37 Dose: 101 mls Iron/Minerals/Multivitamins (Theragran M) 1 tab PO DAILY [facility] Last Admin: 10/05/17 07:55 Dose: Not Given Lactase (Lactaid Fast Act) 9,000 unit PO TID-WM [facility] Last Admin: 10/05/17 11:06 Dose: 9,000 unit Levothyroxine Sodium (Synthroid) 112 mcg PO 0600 [facility] Last Admin: 10/05/17 06:22 Dose: 112 mcg Loperamide HCl (Imodium) 2 mg PO PRN PRN PRN Reason: Diarrhea/Loose Stools Last Admin: 10/05/17 11:06 Dose: 2 mg Loratadine (Claritin) 10 mg PO DAILY [facility] Last Admin: 10/05/17 07:53 Dose: 10 mg Mometasone Furoate/Formoterol Fumar (Dulera 200 Mcg/5 Mcg Inhaler) 1 puff INH BID-RT [facility] Last Admin: 10/05/17 08:21 Dose: 1 puff Montelukast Sodium (Singulair) 10 mg PO QPM [facility] Last Admin: 10/04/17 21:14 Dose: 10 mg Multivitamins (Theragran) 1 tab PO DAILY [facility] Last Admin: 10/05/17 07:51 Dose: 1 tab Nystatin (Mycostatin Powder) 1 gm TOP TID [facility] Last Admin: 10/05/17 12:53 Dose: 1 gm Pantoprazole Sodium (Protonix) 40 mg PO BID [facility] Last Admin: 10/05/17 07:52 Dose: 40 mg Sodium Chloride (Flush - Normal Saline) 10 ml IVF Q12HR [facility] Last Admin: 10/05/17 08:06 Dose: Not Given Sodium Chloride (Flush - Normal Saline) 10 ml IVF PRN PRN PRN Reason: Saline Flush Thiamine HCl (Thiamine Hcl) 100 mg SLOW IVP Q12HR [facility] Last Admin: 10/05/17 07:54 Dose: 100 mg Trazodone HCl (Desyrel) 100 mg PO HSPRN PRN PRN Reason: sleep
--- NOTE | 2017-10-05 15:13 | PDOC.PN ---
- Subjective Encounter Start Date: 10/05/17 Encounter Start Time: 10:00 Patient is seen today, alert and oriented, She has severe diarrhea today, this has been negative for Cdiff, but positive for WBC. No fever., - Objective Resuscitation Status: Resuscitation Status FULL:Full Resuscitation MAR Reviewed: Yes Vital Signs & Weight: Vital Signs (12 hours) Temp Pulse Resp BP Pulse Ox 10/05/17 08:21 82 16 99 10/05/17 08:00 98.1 F 82 16 10/05/17 07:26 98.1 F 96 16 117/80 97 Weight Admit Weight 221 lb Weight 221 lb 8.257 oz I&O: 10/04/17 10/05/17 10/06/17 06:59 06:59 06:59 Intake Total 1140 1380 Output Total 652 Balance 488 1380 Result Diagrams: 09/25/17 03:02 10/05/17 17:36 Additional Labs: Accuchecks 10/05/17 10/05/17 10/04/17 11:37 05:48 21:15 POC Glucose 79 88 81 10/04/17 15:45 POC Glucose 68 L Phys Exam - Physical Examination HEENT: PERRLA, moist MMs Neck: no nodes, no JVD Respiratory: no wheezing, no rales Cardiovascular: RRR, no significant murmur Gastrointestinal: soft, non-tender Musculoskeletal: no edema, pulses present Neurological: non-focal, normal sensation Lymphatic: no nodes Psychiatric: normal affect, A&O x 3 Dx/Plan (1) Acute diarrhea Code(s): R19.7 - DIARRHEA, UNSPECIFIED Status: Acute Comment: Will continue with hydration at this time, Will repeat cultures if needed., likely Antibiotics assiciated diarrhea. (2) Cellulitis of upper extremity Code(s): L03.119 - CELLULITIS OF UNSPECIFIED PART OF LIMB Status: Acute Qualifiers: Laterality: unspecified laterality Qualified Code(s): L03.119 - Cellulitis of unspecified part of limb Comment: resolved. (3) Pleural effusion Code(s): J90 - PLEURAL EFFUSION, NOT ELSEWHERE CLASSIFIED Status: Acute Comment: secondary to low albumin and anasarca, neg BNP, no evidence pneumonia (4) UTI (urinary tract infection) Status: Acute Qualifiers: Urinary tract infection type: acute cystitis Hematuria presence: without hematuria Qualified Code(s): N30.00 - Acute cystitis without hematuria Comment: Completed Antibuitoics course. 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 Brian jimenez, suggested Thiamine supplimentation for Now, Will see her in office after discharge. (7) GERD (gastroesophageal reflux disease) Code(s): K21.9 - GASTRO-ESOPHAGEAL REFLUX DISEASE WITHOUT ESOPHAGITIS Status: Chronic Qualifiers: Esophagitis presence: esophagitis presence not specified Qualified Code(s) : K21.9 - Gastro-esophageal reflux disease without esophagitis Comment: Continue with protonix. (8) HTN (hypertension) Code(s): I10 - ESSENTIAL (PRIMARY) HYPERTENSION Status: Chronic Qualifiers: Hypertension type: essential hypertension Qualified Code(s): I10 - Essential (primary) hypertension Comment: stbale. at goal (9) Hypothyroidism Code(s): E03.9 - HYPOTHYROIDISM, UNSPECIFIED Status: Chronic Qualifiers: Hypothyroidism type: unspecified Qualified Code(s): E03.9 - Hypothyroidism , unspecified - Plan cont current plan of care, PT/OT, manager social responsibility, incentive spirometry, out of bed/ambulate, DVT proph w/lovenox * . - Discharge Day Encounter end time: 10:35 Review of Systems - Review of Systems Constitutional: negative: fever, chills, sweats, weakness, malaise, other Respiratory: negative: Cough, Dry, Shortness of Breath, Hemoptysis, SOB with Excertion, Pleuritic Pain, Sputum, Wheezing Cardiovascular: negative: chest pain, palpitations, orthopnea, paroxysmal nocturnal dyspnea, edema, light headedness, other Gastrointestinal: negative: Nausea, Vomiting, Abdominal Pain, Diarrhea, Constipation, Melena, Hematochezia, Other Musculoskeletal: negative: Neck Pain, Shoulder Pain, Arm Pain, Back Pain, Hand Pain, Leg Pain, Foot Pain, Other Skin: negative: Rash, Lesions, Zak, Bruising, Other - Medications/Allergies Allergies/Adverse Reactions: Allergies Allergy/AdvReac Type Severity Reaction Status Date / Time cephalexin monohydrate Allergy Intermediate Rash Verified 09/25/17 00:58 [From Keflex] celecoxib [From Celebrex] Allergy Verified 09/25/17 00:58 Cephalosporins Allergy Verified 09/25/17 00:58 codeine Allergy Verified 09/25/17 00:58 [From Tylenol-Codeine #3] NSAIDS (Non-Steroidal Allergy Verified 09/25/17 00:58 Anti-Inflamma Penicillins Allergy Verified 09/25/17 00:58 Sulfa (Sulfonamide Allergy Verified 09/25/17 00:58 Antibiotics) Medications: Current Medications Acetaminophen (Tylenol) 1,000 mg PO Q6H PRN PRN Reason: Headache/Fever or Mild Pain Hydrocodone Bitart/Acetaminophen ([place] 10/325) 1 tab PO Q6H PRN PRN Reason: Moderate Pain (4-6) Last Admin: 10/06/17 08:54 Dose: 1 tab Albuterol Sulfate (Albuterol Sulfate) 0.63 mg NEB Q4H PRN PRN Reason: Wheezing Albuterol Sulfate (Proventil Hfa) 2 puff INH Q4H PRN PRN Reason: SOB &/or Wheezing Aspirin (Ecotrin) 81 mg PO DAILY [facility] Last Admin: 10/06/17 08:55 Dose: 81 mg Calcium Carbonate (Caltrate) 1,200 mg PO DAILY [facility] Last Admin: 10/06/17 08:53 Dose: 1,200 mg Cholecalciferol (Vitamin D3) 1,000 units PO DAILY [facility] Last Admin: 10/06/17 08:55 Dose: 1,000 units Clonidine (Catapres) 0.1 mg PO Q4H PRN PRN Reason: Systolic BP > 180 Cyclobenzaprine HCl (Flexeril) 10 mg PO TIDPRN PRN PRN Reason: Muscle Spasm Last Admin: 10/06/17 05:46 Dose: 10 mg Diphenhydramine HCl (Benadryl) 25 mg PO Q6H PRN PRN Reason: Itching Estradiol (Estrace) 0.5 mg PO DAILY [facility] Last Admin: 10/06/17 09:23 Dose: 0.5 mg Folic Acid (Folvite) 1 mg PO DAILY [facility] Last Admin: 10/06/17 08:56 Dose: 1 mg Hydralazine HCl (Apresoline) 10 mg SLOW IVP Q4H PRN PRN Reason: Systolic BP > 180 Potassium Chloride/Dextrose/Sod Cl (D5 1/2 Ns W/20 Meq Kcl) 1,000 mls @ 75 mls/ hr IV .[id number] [facility] Last Admin: 10/06/17 11:39 Dose: 1,000 mls Promethazine HCl 25 mg/ Sodium (Chloride) 101 mls @ 404 mls/hr IVPB Q6H PRN PRN Reason: Nausea Last Admin: 10/03/17 11:37 Dose: 101 mls Iron/Minerals/Multivitamins (Theragran M) 1 tab PO DAILY [facility] Last Admin: 10/06/17 08:56 Dose: 1 tab Lactase (Lactaid Fast Act) 9,000 unit PO TID[facility] Last Admin: 10/06/17 15:02 Dose: 9,000 unit Levothyroxine Sodium (Synthroid) 112 mcg PO 0600 [facility] Last Admin: 10/06/17 05:46 Dose: 112 mcg Loperamide HCl (Imodium) 2 mg PO PRN PRN PRN Reason: Diarrhea/Loose Stools Last Admin: 10/06/17 05:46 Dose: 2 mg Loratadine (Claritin) 10 mg PO DAILY [facility] Last Admin: 10/06/17 08:55 Dose: 10 mg Metoprolol Succinate (Toprol Xl) 25 mg PO DAILY [facility] Mometasone Furoate/Formoterol Fumar (Dulera 200 Mcg/5 Mcg Inhaler) 1 puff INH BID-RT [facility] Last Admin: 10/06/17 06:57 Dose: 1 puff Montelukast Sodium (Singulair) 10 mg PO QPM [facility] Last Admin: 10/05/17 20:11 Dose: 10 mg Multivitamins (Theragran) 1 tab PO DAILY [facility] Last Admin: 10/06/17 09:03 Dose: Not Given Nystatin (Mycostatin Powder) 1 gm TOP TID [facility] Last Admin: 10/06/17 15:02 Dose: 1 gm Pantoprazole Sodium (Protonix) 40 mg PO BID [facility] Last Admin: 10/06/17 08:55 Dose: 40 mg Saccharomyces Boulardii (Florastor) 250 mg PO TID [facility] Sodium Chloride (Flush - Normal Saline) 10 ml IVF Q12HR [facility] Last Admin: 02/11/18 09:23 Dose: 10 ml Sodium Chloride (Flush - Normal Saline) 10 ml IVF PRN PRN PRN Reason: Saline Flush Thiamine HCl (Thiamine) 100 mg PO BID [facility] Trazodone HCl (Desyrel) 100 mg PO HSPRN PRN PRN Reason: sleep
[2017-10-05 17:52] LABS: Potassium 4.2 mmol/L (3.5-5.1)
[2017-10-05] MEDS: Montelukast Sodium 10 mg Tablet PO SCH (20:11)
[2017-10-06] MEDS: Loperamide HCl 2 MG CAP PO PRN ×2 (05:46→21:34)
[2017-10-06] MEDS: Levothyroxine Sodium 112 MCG TAB PO SCH (05:46)
[2017-10-06] MEDS: Cyclobenzaprine 10 MG TAB PO PRN (05:46)
[2017-10-06] MEDS: Mometasone/Formoterol 120 PUFF INHALER INH SCH ×2 (06:57→19:25)
[2017-10-06] MEDS: Calcium Carbonate 600 MG TAB PO SCH (08:53)
[2017-10-06] MEDS: HYDROcodone/Acetaminophen 10/325 mg Tablet PO PRN ×3 (08:54→21:34)
[2017-10-06] MEDS: Loratadine 10 MG TAB PO SCH (08:55)
[2017-10-06] MEDS: Aspirin 81 mg Enteric Coated Tablet PO SCH (08:55)
[2017-10-06] MEDS: Multivitamin W/ Minerals 1 TAB PO SCH (08:56)
[2017-10-06] MEDS: Folic Acid 1 MG TAB PO SCH (08:56)
[2017-10-06] MEDS: Nystatin Powder 15 GM BOT TOP SCH ×3 (09:03→21:36)
[2017-10-06] MEDS: Multivit, Therapeutic 1 TAB PO SCH (09:03)
[2017-10-06] MEDS: Lactase 9,000 UNIT CHEWABLE TAB PO SCH ×4 (09:04→15:02)
[2017-10-06] MEDS: D5 1/2 NS w/20 mEq KCL 1,000 ML IV SCH ×3 (09:04→21:34)
[2017-10-06] MEDS: Thiamine HCl 200 MG/2 ML VIAL SLOW IVP SCH (09:23)
[2017-10-06] MEDS: Estradiol 1 MG TAB PO SCH (09:23)
--- NOTE | 2017-10-06 15:07 | PDOC.PN ---
- Subjective Encounter Start Date: 10/06/17 Encounter Start Time: 11:00 Tayla has persistant diarrhea, she is tachycardiac, but no palpitations or dizziness. sinus tachycardia on monitor and EKG. - Objective Resuscitation Status: Resuscitation Status FULL:Full Resuscitation MAR Reviewed: Yes Vital Signs & Weight: Vital Signs (12 hours) Temp Pulse Resp BP Pulse Ox 10/06/17 11:30 107 H 129/70 10/06/17 08:36 99.2 F 123 H 16 132/60 94 L 10/06/17 07:19 98.2 F 102 H 18 10/06/17 04:00 98.2 F Weight Admit Weight 221 lb Weight 221 lb 8.257 oz I&O: 10/05/17 10/06/17 10/07/17 06:59 06:59 06:59 Intake Total 1380 2040 Balance 1380 2040 Result Diagrams: 09/25/17 03:02 10/05/17 17:36 Additional Labs: Accuchecks 10/06/17 10/06/17 10/05/17 11:08 05:41 21:31 POC Glucose 91 80 90 10/05/17 16:50 POC Glucose 133 H EKG Reviewed by me: Yes Phys Exam - Physical Examination HEENT: PERRLA, moist MMs Neck: no nodes, no JVD Respiratory: no wheezing, no rales Cardiovascular: RRR, no significant murmur Gastrointestinal: soft, non-tender Musculoskeletal: no edema, pulses present Neurological: non-focal, normal sensation Psychiatric: normal affect, A&O x 3 Dx/Plan (1) Sinus tachycardia Code(s): R00.0 - TACHYCARDIA, UNSPECIFIED Status: Acute Comment: Tayla has decompensation with severe diarrhea, will start on IV fluids if she is not hydrating well, will do Metoprolol 25 mg daily as HR is >150, Blood pressures are stable. (2) Acute diarrhea Code(s): R19.7 - DIARRHEA, UNSPECIFIED Status: Acute Comment: Will continue with hydration at this time, Will repeat cultures if needed., likely Antibiotics assiciated diarrhea.Will add Florastor 250mg TID. (3) Cellulitis of upper extremity Code(s): L03.119 - CELLULITIS OF UNSPECIFIED PART OF LIMB Status: Acute Qualifiers: Laterality: unspecified laterality Qualified Code(s): L03.119 - Cellulitis of unspecified part of limb Comment: resolved. (4) Pleural effusion Code(s): J90 - PLEURAL EFFUSION, NOT ELSEWHERE CLASSIFIED Status: Acute Comment: secondary to low albumin and anasarca, neg BNP, no evidence pneumonia (5) UTI (urinary tract infection) Status: Acute Qualifiers: Urinary tract infection type: acute cystitis Hematuria presence: without hematuria Qualified Code(s): N30.00 - Acute cystitis without hematuria Comment: Completed Antibuitoics course. 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 Brian jimenez, suggested Thiamine supplimentation for Now, Will see her in office after discharge. (8) GERD (gastroesophageal reflux disease) Code(s): K21.9 - GASTRO-ESOPHAGEAL REFLUX DISEASE WITHOUT ESOPHAGITIS Status: Chronic Qualifiers: Esophagitis presence: esophagitis presence not specified Qualified Code(s) : K21.9 - Gastro-esophageal reflux disease without esophagitis Comment: Continue with protonix. (9) HTN (hypertension) Code(s): I10 - ESSENTIAL (PRIMARY) HYPERTENSION Status: Chronic Qualifiers: Hypertension type: essential hypertension Qualified Code(s): I10 - Essential (primary) hypertension Comment: stbale. at goal (10) Hypothyroidism Code(s): E03.9 - HYPOTHYROIDISM, UNSPECIFIED Status: Chronic Qualifiers: Hypothyroidism type: unspecified Qualified Code(s): E03.9 - Hypothyroidism , unspecified - Plan cont current plan of care, PT/OT, medical social consultant, out of bed/ambulate, DVT proph w/lovenox * . - Discharge Day Encounter end time: 11:35 Review of Systems - Review of Systems Constitutional: weakness, malaise Eyes: negative: Pain, Vision Change, Conjunctivae Inflammation, Eyelid Inflammation, Redness, Other ENT: negative: Ear Pain, Ear Discharge, Nose Pain, Nose Discharge, Nose Congestion, Mouth Pain, Mouth Swelling, Throat Pain, Throat Swelling, Other Respiratory: negative: Cough, Dry, Shortness of Breath, Hemoptysis, SOB with Excertion, Pleuritic Pain, Sputum, Wheezing Cardiovascular: negative: chest pain, palpitations, orthopnea, paroxysmal nocturnal dyspnea, edema, light headedness, other Gastrointestinal: Diarrhea Genitourinary: negative: Dysuria, Frequency, Incontinence, Hematuria, Retention , Other Skin: negative: Rash, Lesions, Zak, Bruising, Other Neurological: Weakness. negative: Numbness, Incoordination, Change in Speech, Confusion, Seizures, Other - Medications/Allergies Allergies/Adverse Reactions: Allergies Allergy/AdvReac Type Severity Reaction Status Date / Time cephalexin monohydrate Allergy Intermediate Rash Verified 09/25/17 00:58 [From Keflex] celecoxib [From Celebrex] Allergy Verified 09/25/17 00:58 Cephalosporins Allergy Verified 09/25/17 00:58 codeine Allergy Verified 09/25/17 00:58 [From Tylenol-Codeine #3] NSAIDS (Non-Steroidal Allergy Verified 09/25/17 00:58 Anti-Inflamma Penicillins Allergy Verified 09/25/17 00:58 Sulfa (Sulfonamide Allergy Verified 09/25/17 00:58 Antibiotics) Medications: Current Medications Acetaminophen (Tylenol) 1,000 mg PO Q6H PRN PRN Reason: Headache/Fever or Mild Pain Hydrocodone Bitart/Acetaminophen ([place] 10/325) 1 tab PO Q6H PRN PRN Reason: Moderate Pain (4-6) Last Admin: 10/06/17 08:54 Dose: 1 tab Albuterol Sulfate (Albuterol Sulfate) 0.63 mg NEB Q4H PRN PRN Reason: Wheezing Albuterol Sulfate (Proventil Hfa) 2 puff INH Q4H PRN PRN Reason: SOB &/or Wheezing Aspirin (Ecotrin) 81 mg PO DAILY [facility] Last Admin: 10/06/17 08:55 Dose: 81 mg Calcium Carbonate (Caltrate) 1,200 mg PO DAILY [facility] Last Admin: 10/06/17 08:53 Dose: 1,200 mg Cholecalciferol (Vitamin D3) 1,000 units PO DAILY [facility] Last Admin: 10/06/17 08:55 Dose: 1,000 units Clonidine (Catapres) 0.1 mg PO Q4H PRN PRN Reason: Systolic BP > 180 Cyclobenzaprine HCl (Flexeril) 10 mg PO TIDPRN PRN PRN Reason: Muscle Spasm Last Admin: 10/06/17 05:46 Dose: 10 mg Diphenhydramine HCl (Benadryl) 25 mg PO Q6H PRN PRN Reason: Itching Estradiol (Estrace) 0.5 mg PO DAILY [facility] Last Admin: 10/06/17 09:23 Dose: 0.5 mg Folic Acid (Folvite) 1 mg PO DAILY [facility] Last Admin: 10/06/17 08:56 Dose: 1 mg Hydralazine HCl (Apresoline) 10 mg SLOW IVP Q4H PRN PRN Reason: Systolic BP > 180 Potassium Chloride/Dextrose/Sod Cl (D5 1/2 Ns W/20 Meq Kcl) 1,000 mls @ 75 mls/ hr IV .[id number] [facility] Last Admin: 10/06/17 11:39 Dose: 1,000 mls Promethazine HCl 25 mg/ Sodium (Chloride) 101 mls @ 404 mls/hr IVPB Q6H PRN PRN Reason: Nausea Last Admin: 10/03/17 11:37 Dose: 101 mls Iron/Minerals/Multivitamins (Theragran M) 1 tab PO DAILY [facility] Last Admin: 10/06/17 08:56 Dose: 1 tab Lactase (Lactaid Fast Act) 9,000 unit PO TID-WM [facility] Last Admin: 10/06/17 15:02 Dose: 9,000 unit Levothyroxine Sodium (Synthroid) 112 mcg PO 0600 [facility] Last Admin: 10/06/17 05:46 Dose: 112 mcg Loperamide HCl (Imodium) 2 mg PO PRN PRN PRN Reason: Diarrhea/Loose Stools Last Admin: 10/06/17 05:46 Dose: 2 mg Loratadine (Claritin) 10 mg PO DAILY [facility] Last Admin: 10/06/17 08:55 Dose: 10 mg Metoprolol Succinate (Toprol Xl) 25 mg PO DAILY [facility] Mometasone Furoate/Formoterol Fumar (Dulera 200 Mcg/5 Mcg Inhaler) 1 puff INH BID-RT [facility] Last Admin: 10/06/17 06:57 Dose: 1 puff Montelukast Sodium (Singulair) 10 mg PO QPM [facility] Last Admin: 10/05/17 20:11 Dose: 10 mg Multivitamins (Theragran) 1 tab PO DAILY [facility] Last Admin: 10/06/17 09:03 Dose: Not Given Nystatin (Mycostatin Powder) 1 gm TOP TID [facility] Last Admin: 10/06/17 15:02 Dose: 1 gm Pantoprazole Sodium (Protonix) 40 mg PO BID [facility] Last Admin: 10/06/17 08:55 Dose: 40 mg Saccharomyces Boulardii (Florastor) 250 mg PO TID [facility] Sodium Chloride (Flush - Normal Saline) 10 ml IVF Q12HR [facility] Last Admin: 10/06/17 09:23 Dose: 10 ml Sodium Chloride (Flush - Normal Saline) 10 ml IVF PRN PRN PRN Reason: Saline Flush Thiamine HCl (Thiamine) 100 mg PO BID [facility] Trazodone HCl (Desyrel) 100 mg PO HSPRN PRN PRN Reason: sleep
[2017-10-06] MEDS: Saccharomyces boulardii 250 MG CAP PO SCH ×2 (15:32→21:32)
[2017-10-06] MEDS: Montelukast Sodium 10 mg Tablet PO SCH (21:32)
[2017-10-07] MEDS: Levothyroxine Sodium 112 MCG TAB PO SCH (05:59)
[2017-10-07] MEDS: Mometasone/Formoterol 120 PUFF INHALER INH SCH ×2 (07:19→18:44)
[2017-10-07] MEDS: Lactase 9,000 UNIT CHEWABLE TAB PO SCH ×3 (09:03→17:47)
[2017-10-07] MEDS: Aspirin 81 mg Enteric Coated Tablet PO SCH (09:04)
[2017-10-07] MEDS: Multivitamin W/ Minerals 1 TAB PO SCH (09:04)
[2017-10-07] MEDS: Loratadine 10 MG TAB PO SCH (09:04)
[2017-10-07] MEDS: Multivit, Therapeutic 1 TAB PO SCH (09:04)
[2017-10-07] MEDS: Calcium Carbonate 600 MG TAB PO SCH (09:04)
[2017-10-07] MEDS: Saccharomyces boulardii 250 MG CAP PO SCH ×3 (09:04→21:08)
[2017-10-07] MEDS: Folic Acid 1 MG TAB PO SCH (09:05)
[2017-10-07] MEDS: HYDROcodone/Acetaminophen 10/325 mg Tablet PO PRN ×3 (09:05→21:12)
[2017-10-07] MEDS: Estradiol 1 MG TAB PO SCH (09:06)
[2017-10-07] MEDS: Nystatin Powder 15 GM BOT TOP SCH ×3 (09:08→21:08)
[2017-10-07] MEDS: Loperamide HCl 2 MG CAP PO PRN ×3 (10:38→21:12)
[2017-10-07] MEDS: D5 1/2 NS w/20 mEq KCL 1,000 ML IV SCH ×2 (11:43→21:09)
--- NOTE | 2017-10-07 20:37 | PDOC.PN ---
- Subjective Encounter Start Date: 10/07/17 Encounter Start Time: 13:00 Subjective: nsg notes rev, kady ovn, pt understands POC no new questions - Objective Resuscitation Status: Resuscitation Status FULL:Full Resuscitation Vital Signs & Weight: Vital Signs (12 hours) Pulse Resp Pulse Ox 10/07/17 18:44 90 12 96 Weight Admit Weight 221 lb Weight 221 lb 8.257 oz I&O: 10/06/17 10/07/17 10/08/17 06:59 06:59 06:59 Intake Total 2039 2039 1199 Balance 2039 2039 1200 Result Diagrams: 09/25/17 03:02 10/05/17 17:36 Additional Labs: Accuchecks 10/07/17 10/07/17 10/07/17 16:14 11:10 05:42 POC Glucose 65 L 83 69 L 10/06/17 19:56 POC Glucose 85 Phys Exam - Physical Examination Constitutional: NAD HEENT: PERRLA, moist MMs, sclera anicteric Respiratory: no wheezing, no rales, no rhonchi, clear to auscultation bilateral anterior exam Cardiovascular: RRR, no significant murmur, no rub Gastrointestinal: soft, no distention, positive bowel sounds Musculoskeletal: no edema, pulses present Neurological: moves all 4 limbs Psychiatric: A&O x 3 Dx/Plan (1) FTT (failure to thrive) in adult Status: Chronic (2) Hypoalbuminemia due to protein-calorie malnutrition Code(s): E46 - UNSPECIFIED PROTEIN-CALORIE MALNUTRITION Status: Chronic Comment: Patient is unable to tolerate and having diarrhea,/ 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 at goal - Plan * . Review of Systems - Medications/Allergies Allergies/Adverse Reactions: Allergies Allergy/AdvReac Type Severity Reaction Status Date / Time cephalexin monohydrate Allergy Intermediate Rash Verified 09/25/17 00:58 [From Keflex] celecoxib [From Celebrex] Allergy Verified 09/25/17 00:58 Cephalosporins Allergy Verified 09/25/17 00:58 codeine Allergy Verified 09/25/17 00:58 [From Tylenol-Codeine #3] NSAIDS (Non-Steroidal Allergy Verified 09/25/17 00:58 Anti-Inflamma Penicillins Allergy Verified 09/25/17 00:58 Sulfa (Sulfonamide Allergy Verified 09/25/17 00:58 Antibiotics)
[2017-10-07] MEDS: Montelukast Sodium 10 mg Tablet PO SCH (21:08)
[2017-10-08] MEDS: Cyclobenzaprine 10 MG TAB PO PRN (03:20)
[2017-10-08] MEDS: Loperamide HCl 2 MG CAP PO PRN ×2 (03:20→08:50)
[2017-10-08] MEDS: Levothyroxine Sodium 112 MCG TAB PO SCH (04:26)
[2017-10-08 07:48] VITALS: BP 105/75; TEMP 97.7
[2017-10-08] MEDS: Folic Acid 1 MG TAB PO SCH (08:08)
[2017-10-08] MEDS: Multivitamin W/ Minerals 1 TAB PO SCH (08:08)
[2017-10-08] MEDS: Multivit, Therapeutic 1 TAB PO SCH (08:08)
[2017-10-08] MEDS: Calcium Carbonate 600 MG TAB PO SCH (08:08)
[2017-10-08] MEDS: Saccharomyces boulardii 250 MG CAP PO SCH (08:08)
[2017-10-08] MEDS: Loratadine 10 MG TAB PO SCH (08:09)
[2017-10-08] MEDS: Aspirin 81 mg Enteric Coated Tablet PO SCH (08:09)
[2017-10-08] MEDS: Lactase 9,000 UNIT CHEWABLE TAB PO SCH (08:10)
[2017-10-08] MEDS: Nystatin Powder 15 GM BOT TOP SCH (08:11)
[2017-10-08] MEDS: Mometasone/Formoterol 120 PUFF INHALER INH SCH (08:19)
[2017-10-08] MEDS: Estradiol 1 MG TAB PO SCH (08:47)
[2017-10-08] MEDS: D5 1/2 NS w/20 mEq KCL 1,000 ML IV SCH (08:51)
--- NOTE | 2017-10-09 13:12 | DIS ---
DISCHARGE DIAGNOSES: 1. Pleural effusion secondary to hypoalbuminemia and anasarca. 2. Hypoalbuminemia due to protein-calorie malnutrition. 3. Upper extremity cellulitis. 4. Urinary tract infection. 5. Acute diarrhea, intermittent and chronic. BRIEF SUMMARY OF HOSPITAL COURSE: A 61-year-old female who initially presented with complaints of fever and upper extremity swelling. She was initiated on empiric antibiotics for upper extremity cellulitis and also evaluated by Infectious Disease. During this evaluation, she was also found to be severely malnourished with protein calorie malnutrition and significant component of hypoalbuminemia and anasarca. She has continued to have failure to thrive, poor oral intake, difficulty participating with physical therapy, occupational therapy, and other supportive therapies. After the first 48 hours, she no longer had any continued fevers. Under the guidance of Infectious Diseases, empiric antibiotics were discontinued. Supportive management continued. At the time of discharge, the patient's condition demonstrates a very, very poor prognosis secondary to her nutritional state. This was discussed with the patient and her family at bedside. She was seen by nutrition, physical therapy during consultation. At the time of discharge, she was going to a swing bed at [facility]. The patient's condition at discharge at the time of discharge: Vital signs are stable. Patient's overall good clinical prognosis is poor in the prison. She is awake, appropriate, conversant, interactive, makes efforts to participate with physical therapy, but is unable to tolerate much. Please see the EMR for full details. Of note, the patient will be discontinued on her presenting regimen. MEDICATION RECONCILIATION: Please see EMR for full details. 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 She will need continued close followup with her outpatient care team. Recommend consideration of palliative care consult as well. Thank you for asking me to care for your patient. Greater than 30 minutes spent coordinating discharge for the patient. VALENTIN
--- NOTE | 2017-10-16 10:52 | EKG ---
Test Reason : Blood Pressure : / mmHG Vent. Rate : 118 BPM Atrial Rate : 118 BPM P-R Int : 152 ms QRS Dur : 098 ms QT Int : 328 ms P-R-T Axes : 027 -75 031 degrees QTc Int : 459 ms Sinus tachycardia ,with PAC noted Left axis deviation Low voltage QRS diffusely Incomplete right bundle branch block Possible Anterolateral infarct (cited on or before 24-SEP-2017) Abnormal ECG When compared with ECG of 06-OCT-2017 09:19, (Unconfirmed) Premature supraventricular complexes still present Confirmed by GUERO ARCHULETA ([id number]) on 10/16/2017 10:51:34 AM Referred By: SAURABH Confirmed By:GUERO ARCHULETA
== END 2017-10-08 11:42 | disposition swing bed (61) | DRG 871 ==
LOC: ERS 14:47 → 2NO 09-25 00:05 → T4-A 09-25 16:17
PROVIDERS: ADMIT Internal Medicine; ATTEND Internal Medicine
DX: A41.9 Sepsis, unspecified organism (principal); E43 Unspecified severe protein-calorie malnutrition; J91.8 Pleural effusion in other conditions classified elsewhere; L89.152 Pressure ulcer of sacral region, stage 2; K91.2 Postsurgical malabsorption, not elsewhere classified; E87.2 Acidosis; N30.00 Acute cystitis without hematuria; L03.114 Cellulitis of left upper limb; L03.113 Cellulitis of right upper limb; E88.09 Other disorders of plasma-protein metabolism, not elsewhere classified; R62.7 Adult failure to thrive; I10 Essential (primary) hypertension; Z98.84 Bariatric surgery status; K21.9 Gastro-esophageal reflux disease without esophagitis; E03.9 Hypothyroidism, unspecified; B96.20 Unspecified Escherichia coli [E. coli] as the cause of diseases classified elsewhere; D53.9 Nutritional anemia, unspecified; Z86.718 Personal history of other venous thrombosis and embolism; E16.1 Other hypoglycemia; K52.9 Noninfective gastroenteritis and colitis, unspecified; R74.0 Nonspecific elevation of levels of transaminase and lactic acid dehydrogenase [LDH]; Z68.38 Body mass index [BMI] 38.0-38.9, adult
CPT/HCPCS: 36415; 36416; 51701; 71045; 71250; 74177; 80048; 80053; 80202; 81003; 81015; 82180; 82274; 82525; 82550; 82607; 83605; 83630; 83690; 83880; 84132; 84425; 84590; 85007; 85025; 85027; 85610; 85730; 87040; 87045; 87046; 87077; 87086; 87186; 87324; 87449; 87804; 87899; 93005; 93010; 94664; 96361; 96365; 96367; 96375; A4353; G8978-GP-CL; G8979-GP-CI; G8987-GO-CK; G8988-GO-CI; J1956; J2550; J3370; J3411; J3490; J7050; J7620

== ENCOUNTER 2017-10-15 12:59 | Inpatient (IN) | payer MEDICARE ==
[2017-10-15] MEDS ORDERED: Acetaminophen 325 MG TAB PO PRN (15:31)
--- NOTE | 2017-10-15 15:37 | RAD ---
PORTABLE CHEST: Date: 10/15/17 HISTORY: Mental status change. COMPARISON: 10/01/17. FINDINGS: There continues to be evidence of left basilar opacification obscuring the left hemidiaphragm through the cardiac silhouette. Lungs otherwise are well aerated. The interstitial prominence bilaterally remains stable. The CT of 10/01/17 confirmed left basilar opacification consisting of left effusion and left basilar atelectasis. IMPRESSION: Left basilar opacification remains without significant interval change noted. POS: JESSE
[2017-10-15 16:34] LABS: #Lymphocytes 2.5 thou/uL (1.20-3.40); #Monocytes 0.3 thou/uL (0.11-0.59); #Neutrophils 3.3 thou/uL (1.40-6.50); %Basophils 0.7 % (0.0-1.0); %Eosinophils 0.5 % (0.0-10.0); %Lymphocytes 40.6 % (21.0-51.0); %Monocytes 4.9 % (0.0-10.0); %Neutrophils 53.4 % (42.0-75.0); Hemoglobin 12.8 g/dL (12.0-16.0); Mean Corpuscular HGB CONC 32.2 g/dL (32.0-36.0); Mean Corpuscular Hemoglobin 34.7 pg (27.0-31.0); Mean Platelet Volume 8.4 fL (7.4-10.4); Platelet Count 366 thou/uL (130-400); RBC Distribution Width 13.6 % (11.5-14.5); White Blood Cell (WBC) Count 6.2 thou/uL (4.8-10.8)
[2017-10-15 16:40] LABS: Prothrombin Time 13.8 SEC (12.0-14.7)
[2017-10-15 16:41] LABS: PTT 21.6 SEC (22.9-36.1)
[2017-10-15 16:51] LABS: ALT (SGPT) 27 U/L (8-55); AST (SGOT) 32 U/L (5-34); Albumin 1.8 g/dL (3.4-4.8); Alkaline Phosphatase 251 U/L (40-150); Anion Gap 11 mmol/L (10-20); BUN (Urea Nitrogen) 21 mg/dL (9.8-20.1); Bilirubin, Total 1.4 mg/dL (0.2-1.2); CK (CPK) 26 U/L (29-168); Calc. Creatinine Clearance 0 mL/min (70-130); Calcium 7.6 mg/dL (7.8-10.44); Carbon Dioxide 23 mmol/L (23-31); Chloride 108 mmol/L (98-107); Estimated GFR-MDRD 43; Globulin 2.4 g/dL (2.4-3.5); Glucose 71 mg/dL (80-115); Lipase Less than 4 U/L (8-78); Potassium 4.1 mmol/L (3.5-5.1); Protein, Total 4.2 g/dL (6.0-8.3); Sodium 138 mmol/L (136-145)
[2017-10-15] MEDS ORDERED: diphenhydrAMINE 25 MG CAP PO PRN (17:09)
[2017-10-15] MEDS ORDERED: PROVENTIL INHALER 6.7 G (200 INHALATIONS) INH PRN (17:09)
[2017-10-15] MEDS ORDERED: cloNIDine 0.1 MG TAB PO PRN (17:09)
[2017-10-15] MEDS ORDERED: Albuterol Sulfate 1.25 MG/3 ML NEB NEB PRN (17:30)
[2017-10-15] MEDS ORDERED: Cyclobenzaprine 10 MG TAB PO PRN (17:30)
[2017-10-15] MEDS ORDERED: traZODone HCl 50 MG TAB PO PRN (17:45)
[2017-10-15] MEDS ORDERED: HYDROcodone/Acetaminophen 10/325 mg Tablet ONE (18:00)
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
[2017-10-15] MEDS ORDERED: Dextrose 50% Abboject 50 ML SYRINGE ONE (19:53)
[2017-10-15] MEDS ORDERED: Dextrose 50% Abboject 50 ML SYRINGE SLOW IVP SCH (20:00)
[2017-10-15 20:12] LABS: Hemoglobin A1c 3.8 % (4.0-6.0)
[2017-10-15] MEDS: Mometasone/Formoterol 120 PUFF INHALER INH SCH (21:50)
[2017-10-15 22:36] VITALS: BMI 37.0
[2017-10-15] MEDS: Saccharomyces boulardii 250 MG CAP PO SCH (23:38)
[2017-10-15] MEDS: Nystatin Powder 15 GM BOT TOP SCH (23:39)
[2017-10-15] MEDS: Heparin 5,000 UNITS/ML VIAL SC SCH (23:39)
[2017-10-16] MEDS: HYDROcodone/Acetaminophen 10/325 mg Tablet PO PRN ×2 (01:01→11:18)
[2017-10-16] MEDS: Levothyroxine Sodium 112 MCG TAB PO SCH (05:55)
[2017-10-16 06:48] LABS: Hemoglobin 11.2 g/dL (12.0-16.0); Mean Corpuscular HGB CONC 32.2 g/dL (32.0-36.0); Mean Corpuscular Hemoglobin 33.9 pg (27.0-31.0); Mean Platelet Volume 8.2 fL (7.4-10.4); Platelet Count 310 thou/uL (130-400); RBC Distribution Width 13.5 % (11.5-14.5); Red Blood Cell (RBC) Count 3.29 mill/uL (4.20-5.40); White Blood Cell (WBC) Count 7.9 thou/uL (4.8-10.8)
[2017-10-16 06:58] LABS: Albumin 1.4 g/dL (3.4-4.8)
[2017-10-16 06:59] LABS: Chloride 110 mmol/L (98-107); Potassium 4.2 mmol/L (3.5-5.1); Sodium 137 mmol/L (136-145)
[2017-10-16 07:00] LABS: Calcium 7.1 mg/dL (7.8-10.44); Glucose 73 mg/dL (80-115)
[2017-10-16 07:01] LABS: Globulin 1.9 g/dL (2.4-3.5); Protein, Total 3.3 g/dL (6.0-8.3)
[2017-10-16 07:02] LABS: Anion Gap 10 mmol/L (10-20); Bilirubin, Total 0.9 mg/dL (0.2-1.2); Carbon Dioxide 21 mmol/L (23-31)
[2017-10-16 07:03] LABS: Alkaline Phosphatase 202 U/L (40-150)
[2017-10-16 07:04] LABS: BUN (Urea Nitrogen) 21 mg/dL (9.8-20.1); Calc. Creatinine Clearance 78 mL/min (70-130); Estimated GFR-MDRD 48
[2017-10-16 07:05] LABS: AST (SGOT) 24 U/L (5-34)
[2017-10-16 07:06] LABS: ALT (SGPT) 21 U/L (8-55)
[2017-10-16 07:11] LABS: Band 1 % (5-11); Lymphocytes 31 % (21-51); Monocytes 3 % (0-10); Neutrophil 65 % (42-75); PLT Morphology Comment Appears Adequate
[2017-10-16 07:12] LABS: MDiff Complete? YES; Polychromasia SLIGHT = 2-3 cells (100X) (0-2/hpf); Target Cells SLIGHT = 2-5 cells (100X) (0-1/hpf)
[2017-10-16] MEDS: Mometasone/Formoterol 120 PUFF INHALER INH SCH ×2 (07:14→18:35)
[2017-10-16] MEDS ORDERED: Famotidine 20 MG TAB PO SCH (09:00)
[2017-10-16] MEDS ORDERED: Albumin 25% 25 GM/100 ML BOT IVPB ONE (09:32)
[2017-10-16] MEDS ORDERED: Furosemide 20 MG/2 ML VIAL SLOW IVP SCH (09:45)
[2017-10-16] MEDS: Lactase 9,000 UNIT CHEWABLE TAB PO SCH ×3 (09:59→16:18)
[2017-10-16] MEDS: Estradiol 1 MG TAB PO SCH (10:00)
[2017-10-16] MEDS: Loratadine 10 MG TAB PO SCH (10:02)
[2017-10-16] MEDS: Heparin 5,000 UNITS/ML VIAL SC SCH ×3 (10:02→20:35)
[2017-10-16] MEDS: Montelukast Sodium 10 mg Tablet PO SCH (10:02)
[2017-10-16] MEDS: Saccharomyces boulardii 250 MG CAP PO SCH ×3 (10:03→20:34)
[2017-10-16] MEDS: Folic Acid 1 MG TAB PO SCH (10:03)
[2017-10-16] MEDS: Multivit, Therapeutic 1 TAB PO SCH (10:03)
[2017-10-16] MEDS: Calcium Carbonate 600 MG TAB PO SCH (11:18)
[2017-10-16] MEDS: Aspirin 81 mg Enteric Coated Tablet PO SCH (11:18)
[2017-10-16] MEDS: Nystatin Powder 15 GM BOT TOP SCH ×3 (11:19→20:35)
[2017-10-16] MEDS ORDERED: GoLYTELY 4,000 ml Bottle PO SCH ×2 (12:00→17:30)
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
--- NOTE | 2017-10-16 13:17 | PDOC.PN ---
- Subjective Encounter Start Date: 10/16/17 Encounter Start Time: 09:00 Subjective: pt up in bed eating breakfast. - Objective Resuscitation Status: Resuscitation Status FULL:Full Resuscitation Vital Signs & Weight: Vital Signs (12 hours) Temp Pulse Pulse Resp BP BP Pulse Ox 10/16/17 11:00 98.0 F 94 20 119/84 92 L 10/16/17 10:13 85 110/80 10/16/17 08:00 98.0 F 94 20 92 L 10/16/17 07:00 97.4 F L 87 18 108/76 100 10/16/17 05:00 97.4 F L 89 18 96/67 99 Weight Admit Weight 215 lb 8 oz Weight 215 lb 8 oz Result Diagrams: 10/16/17 06:22 10/16/17 06:39 Additional Labs: Accuchecks 10/15/17 10/15/17 20:33 19:42 POC Glucose 101 50 L* Phys Exam - Physical Examination HEENT: PERRLA Neck: no nodes Respiratory: no wheezing, no rales Cardiovascular: RRR, no significant murmur Gastrointestinal: soft (large, bsx2, ), non-tender Musculoskeletal: edema present (significant edema all over) Neurological: non-focal Lymphatic: no nodes Dx/Plan (1) Acute diarrhea Code(s): R19.7 - DIARRHEA, UNSPECIFIED Status: Acute Plan: pt has not had any more diarrhea for the past 2 days. she was admitted here for weakness and diarrhea. cdiff and stool for infectious process is pending. may consider checking stool osmotic gap. given her hx of gastric bypass possible short gut syndrome. gi consulted Comment: Will continue with hydration at this time, Will repeat cultures if needed., likely Antibiotics assiciated diarrhea.Will add Florastor 250mg TID. (2) Anasarca Code(s): R60.1 - GENERALIZED EDEMA Status: Acute Plan: pt given albumin and lasix since her bp is low. (3) Orthostasis Code(s): I95.1 - ORTHOSTATIC HYPOTENSION Status: Acute Plan: pt gets dizzy when she gets up. unable to do othostatic on pt. (4) Malnutrition Code(s): E46 - UNSPECIFIED PROTEIN-CALORIE MALNUTRITION Status: Acute Plan: pt is on a high protein diet, nutrition consulted - Plan * .
[2017-10-16] MEDS: Ondansetron ODT 8 MG TAB PO PRN (21:57)
[2017-10-17] MEDS: HYDROcodone/Acetaminophen 10/325 mg Tablet PO PRN ×2 (04:00→23:19)
[2017-10-17] MEDS: Levothyroxine Sodium 112 MCG TAB PO SCH (05:09)
[2017-10-17 06:03] LABS: Iron 58 ug/dL (50-170)
[2017-10-17 06:21] LABS: Ferritin 186.21 ng/mL (10-291); Vitamin D, 25 Hydroxy 19.9 ng/ml (> 30.0)
[2017-10-17 06:49] LABS: Iron Binding Capacity, Total 50 mcg/dL (265-497)
[2017-10-17] MEDS: Mometasone/Formoterol 120 PUFF INHALER INH SCH ×2 (08:01→18:28)
[2017-10-17] MEDS: Lactase 9,000 UNIT CHEWABLE TAB PO SCH ×3 (11:56→17:12)
[2017-10-17] MEDS: Heparin 5,000 UNITS/ML VIAL SC SCH ×3 (12:55→21:29)
[2017-10-17] MEDS: Aspirin 81 mg Enteric Coated Tablet PO SCH (12:55)
[2017-10-17] MEDS: Multivit, Therapeutic 1 TAB PO SCH (13:02)
[2017-10-17] MEDS: Loratadine 10 MG TAB PO SCH (13:02)
[2017-10-17] MEDS: Folic Acid 1 MG TAB PO SCH (13:02)
[2017-10-17] MEDS: Montelukast Sodium 10 mg Tablet PO SCH (13:02)
[2017-10-17] MEDS: Estradiol 1 MG TAB PO SCH (13:03)
[2017-10-17] MEDS: Saccharomyces boulardii 250 MG CAP PO SCH ×3 (13:05→21:29)
[2017-10-17] MEDS: Nystatin Powder 15 GM BOT TOP SCH ×3 (13:06→21:29)
--- NOTE | 2017-10-17 13:25 | PDOC.PN ---
- Subjective Encounter Start Date: 10/17/17 Encounter Start Time: 08:00 Pt seen for followup re: hypoglycemic episodes. Denies chest pain, shortness of breath. Has diarrhea. No nausea or vomiting. - Objective Resuscitation Status: Resuscitation Status FULL:Full Resuscitation MAR Reviewed: Yes Vital Signs & Weight: Vital Signs (12 hours) Temp Pulse Resp BP Pulse Ox 10/17/17 12:00 98.1 F 93 18 91/76 97 10/17/17 08:00 97.9 F 105 H 20 107/80 97 10/17/17 05:00 97.6 F 105 H 18 119/86 97 Weight Admit Weight 215 lb 8 oz Weight 215 lb 8 oz Result Diagrams: 10/16/17 06:22 10/16/17 06:39 Additional Labs: Accuchecks 10/17/17 10/17/17 10/16/17 11:20 05:08 23:11 POC Glucose 53 L* 69 L 80 10/16/17 10/16/17 20:44 16:13 POC Glucose 41 L* 61 L Phys Exam - Physical Examination Constitutional: NAD HEENT: PERRLA, moist MMs, sclera anicteric, oral pharynx no lesions Neck: no nodes, no JVD, supple, full ROM Respiratory: no wheezing, no rales, no rhonchi, clear to auscultation bilateral Cardiovascular: RRR, no rub Gastrointestinal: soft, non-tender, no distention, positive bowel sounds Neurological: non-focal, moves all 4 limbs Psychiatric: normal affect Dx/Plan (1) Hypoglycemia Code(s): E16.2 - HYPOGLYCEMIA, UNSPECIFIED Status: Acute (2) JOSUE (acute kidney injury) Code(s): N17.9 - ACUTE KIDNEY FAILURE, UNSPECIFIED Status: Acute (3) Diarrhea Code(s): R19.7 - DIARRHEA, UNSPECIFIED Status: Chronic (4) DJD (degenerative joint disease) Code(s): M19.90 - UNSPECIFIED OSTEOARTHRITIS, UNSPECIFIED SITE Status: Chronic Qualifiers: Osteoarthritis location: unspecified site Osteoarthritis type: primary Qualified Code(s): M19.91 - Primary osteoarthritis, unspecified site (5) Depression Code(s): F32.9 - MAJOR DEPRESSIVE DISORDER, SINGLE EPISODE, UNSPECIFIED Status : Chronic (6) Hypoalbuminemia due to protein-calorie malnutrition Code(s): E46 - UNSPECIFIED PROTEIN-CALORIE MALNUTRITION Status: Chronic Comment: Patient is unable to tolerate and having diarrhea,/ 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 Hypoglycemia most likely due to beta pricilla. Hold metoprolol succinate, continue accuchecks. PRN D50 push, glucagon. Awaiting scope studies. Creatinine improving. Review of Systems - Review of Systems Constitutional: negative: fever, chills, sweats, weakness, malaise Respiratory: negative: Cough, Dry, Shortness of Breath, Hemoptysis, SOB with Excertion, Pleuritic Pain, Sputum, Wheezing Cardiovascular: negative: chest pain, palpitations, orthopnea, paroxysmal nocturnal dyspnea, edema, light headedness Gastrointestinal: Diarrhea. negative: Nausea, Vomiting, Abdominal Pain, Constipation, Melena, Hematochezia Skin: negative: Rash, Lesions, Zak, Bruising - Medications/Allergies Allergies/Adverse Reactions: Allergies Allergy/AdvReac Type Severity Reaction Status Date / Time cephalexin monohydrate Allergy Intermediate Rash Verified 09/25/17 00:58 [From Keflex] celecoxib [From Celebrex] Allergy Verified 09/25/17 00:58 Cephalosporins Allergy Verified 09/25/17 00:58 codeine Allergy Verified 09/25/17 00:58 [From Tylenol-Codeine #3] NSAIDS (Non-Steroidal Allergy Verified 09/25/17 00:58 Anti-Inflamma Penicillins Allergy Verified 09/25/17 00:58 Sulfa (Sulfonamide Allergy Verified 09/25/17 00:58 Antibiotics) Medications: Current Medications Acetaminophen (Tylenol) 650 mg PO Q4H PRN PRN Reason: Headache/Fever or Pain Hydrocodone Bitart/Acetaminophen ([place] 10/325) 1 tab PO Q6H PRN PRN Reason: Moderate Pain (4-6) Last Admin: 10/17/17 04:00 Dose: 1 tab Albuterol Sulfate (Albuterol Sulfate) 0.63 mg NEB Q4H PRN PRN Reason: Wheezing Albuterol Sulfate (Proventil Hfa) 2 puff INH Q4H PRN PRN Reason: SOB &/or Wheezing Aspirin (Ecotrin) 81 mg PO DAILY [facility] Last Admin: 10/17/17 12:55 Dose: Not Given Calcium Carbonate (Caltrate) 1,200 mg PO DAILY [facility] Last Admin: 10/16/17 11:18 Dose: 1,200 mg Cholecalciferol (Vitamin D3) 1,000 units PO DAILY [facility] Last Admin: 10/17/17 13:02 Dose: 1,000 units Clonidine (Catapres) 0.1 mg PO Q4H PRN PRN Reason: Systolic BP > 180 Cyclobenzaprine HCl (Flexeril) 10 mg PO TID PRN PRN Reason: Muscle Spasm Last Admin: 10/16/17 16:17 Dose: 10 mg Diphenhydramine HCl (Benadryl) 25 mg PO Q6H PRN PRN Reason: Itching Estradiol (Estrace) 0.5 mg PO DAILY [facility] Last Admin: 10/17/17 13:03 Dose: 0.5 mg Folic Acid (Folvite) 1 mg PO DAILY [facility] Last Admin: 10/17/17 13:02 Dose: 1 mg Heparin Sodium (Porcine) (Heparin) 5,000 units SC TID [facility] Last Admin: 10/17/17 12:55 Dose: Not Given Lactase (Lactaid Fast Act) 9,000 unit PO TID-[facility] Last Admin: 10/17/17 13:08 Dose: 9,000 unit Levothyroxine Sodium (Synthroid) 112 mcg PO 0600 [facility] Last Admin: 10/17/17 05:09 Dose: 112 mcg Loratadine (Claritin) 10 mg PO DAILY [facility] Last Admin: 10/17/17 13:02 Dose: 10 mg Metoprolol Succinate (Toprol Xl) 25 mg PO DAILY [facility] Last Admin: 10/17/17 05:09 Dose: 25 mg Mometasone Furoate/Formoterol Fumar (Dulera 200 Mcg/5 Mcg Inhaler) 1 puff INH BID-RT [facility] Last Admin: 10/17/17 08:01 Dose: 1 puff Montelukast Sodium (Singulair) 10 mg PO DAILY [facility] Last Admin: 10/17/17 13:02 Dose: 10 mg Multivitamins (Theragran) 1 tab PO DAILY [facility] Last Admin: 10/17/17 13:02 Dose: 1 tab Nystatin (Mycostatin Powder) 0 gm TOP TID [facility] Last Admin: 10/17/17 13:06 Dose: 1 applic Ondansetron HCl (Zofran Odt) 8 mg PO Q8H PRN PRN Reason: Nausea Last Admin: 10/16/17 21:57 Dose: 8 mg Pantoprazole Sodium (Protonix) 40 mg PO BID [facility] Last Admin: 10/17/17 13:02 Dose: 40 mg Saccharomyces Boulardii (Florastor) 250 mg PO TID [facility] Last Admin: 10/17/17 13:06 Dose: 250 mg Sodium Chloride (Flush - Normal Saline) 10 ml IVF Q12HR [facility] Last Admin: 10/17/17 13:05 Dose: 10 ml Sodium Chloride (Flush - Normal Saline) 10 ml IVF PRN PRN PRN Reason: Saline Flush Last Admin: 10/17/17 13:05 Dose: 10 ml Trazodone HCl (Desyrel) 100 mg PO HS PRN PRN Reason: Insomnia
[2017-10-17] MEDS ORDERED: Dextrose 5% in Water 1,000 ML IV PRN (13:29)
[2017-10-17] MEDS: Calcium Carbonate 600 MG TAB PO SCH (15:41)
[2017-10-17] MEDS: Dextrose 50% Abboject 50 ML SYRINGE SLOW IVP PRN (16:26)
[2017-10-17] MEDS: Ondansetron ODT 8 MG TAB PO PRN (17:11)
[2017-10-17] MEDS ORDERED: GoLYTELY 4,000 ml Bottle PO SCH (20:00)
[2017-10-18] MEDS: Dextrose 50% Abboject 50 ML SYRINGE SLOW IVP PRN ×2 (05:20→16:58)
[2017-10-18] MEDS: Levothyroxine Sodium 112 MCG TAB PO SCH (05:35)
[2017-10-18] MEDS: Mometasone/Formoterol 120 PUFF INHALER INH SCH ×2 (08:11→19:11)
[2017-10-18] MEDS: Loratadine 10 MG TAB PO SCH (08:44)
[2017-10-18] MEDS: Calcium Carbonate 600 MG TAB PO SCH (08:44)
[2017-10-18] MEDS: Multivit, Therapeutic 1 TAB PO SCH (08:45)
[2017-10-18] MEDS: Aspirin 81 mg Enteric Coated Tablet PO SCH (08:45)
[2017-10-18] MEDS: Folic Acid 1 MG TAB PO SCH (08:45)
[2017-10-18] MEDS: Estradiol 1 MG TAB PO SCH (08:45)
[2017-10-18] MEDS: Saccharomyces boulardii 250 MG CAP PO SCH ×3 (08:45→21:16)
[2017-10-18] MEDS: Lactase 9,000 UNIT CHEWABLE TAB PO SCH ×3 (08:45→18:00)
[2017-10-18] MEDS: Montelukast Sodium 10 mg Tablet PO SCH (08:45)
[2017-10-18] MEDS: HYDROcodone/Acetaminophen 10/325 mg Tablet PO PRN (11:24)
[2017-10-18] MEDS: Nystatin Powder 15 GM BOT TOP SCH ×3 (11:26→21:17)
[2017-10-18] MEDS: Heparin 5,000 UNITS/ML VIAL SC SCH ×3 (11:26→21:16)
--- NOTE | 2017-10-18 15:39 | PDOC.PN ---
- Subjective Encounter Start Date: 10/18/17 Encounter Start Time: 09:00 Pt seen for followup re: hypoglycemia. Reports ongoing diarrhea (had bowel prep ). - Objective Resuscitation Status: Resuscitation Status FULL:Full Resuscitation Vital Signs & Weight: Vital Signs (12 hours) Temp Pulse Resp BP Pulse Ox 10/18/17 11:55 98.0 F 104 H 14 115/85 100 10/18/17 08:11 109 H 18 100 10/18/17 08:00 97.6 F 109 H 18 101/69 100 10/18/17 04:55 97.9 F 107 H 18 118/52 L 94 L Weight Admit Weight 215 lb 8 oz Weight 215 lb 8 oz I&O: 10/17/17 10/18/17 10/19/17 06:59 06:59 06:59 Intake Total 1080 Balance 1080 Result Diagrams: 10/16/17 06:22 10/16/17 06:39 Additional Labs: Accuchecks 10/18/17 10/18/17 10/18/17 11:24 06:16 05:12 POC Glucose 72 68 L 52 L* 10/17/17 10/17/17 10/17/17 20:23 18:34 17:08 POC Glucose 77 74 60 L 10/17/17 16:25 POC Glucose 44 L* Phys Exam - Physical Examination Obese HEENT: moist MMs Neck: supple Respiratory: clear to auscultation bilateral Cardiovascular: RRR Gastrointestinal: soft Neurological: moves all 4 limbs Psychiatric: normal affect Dx/Plan (1) Hypoglycemia Code(s): E16.2 - HYPOGLYCEMIA, UNSPECIFIED Status: Acute (2) JOSUE (acute kidney injury) Code(s): N17.9 - ACUTE KIDNEY FAILURE, UNSPECIFIED Status: Acute (3) Diarrhea Code(s): R19.7 - DIARRHEA, UNSPECIFIED Status: Chronic (4) DJD (degenerative joint disease) Code(s): M19.90 - UNSPECIFIED OSTEOARTHRITIS, UNSPECIFIED SITE Status: Chronic Qualifiers: Osteoarthritis location: unspecified site Osteoarthritis type: primary Qualified Code(s): M19.91 - Primary osteoarthritis, unspecified site (5) Depression Code(s): F32.9 - MAJOR DEPRESSIVE DISORDER, SINGLE EPISODE, UNSPECIFIED Status : Chronic (6) Hypoalbuminemia due to protein-calorie malnutrition Code(s): E46 - UNSPECIFIED PROTEIN-CALORIE MALNUTRITION Status: Chronic Comment: Patient is unable to tolerate and having diarrhea,/ 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 Monitor accuchecks. Pt has PRN medications for hypoglycemia. Beta pricilla was stopped yesterday. Awaiting colonoscopy. Monitor vital signs, titrate antihypertensives as needed. Check free T3, free T4. Review of Systems - Review of Systems Constitutional: weakness Cardiovascular: negative: chest pain, palpitations, orthopnea, paroxysmal nocturnal dyspnea, edema, light headedness Gastrointestinal: Diarrhea. negative: Nausea, Vomiting, Abdominal Pain, Constipation, Melena, Hematochezia, Other - Medications/Allergies Allergies/Adverse Reactions: Allergies Allergy/AdvReac Type Severity Reaction Status Date / Time cephalexin monohydrate Allergy Intermediate Rash Verified 09/25/17 00:58 [From Keflex] celecoxib [From Celebrex] Allergy Verified 09/25/17 00:58 Cephalosporins Allergy Verified 09/25/17 00:58 codeine Allergy Verified 09/25/17 00:58 [From Tylenol-Codeine #3] NSAIDS (Non-Steroidal Allergy Verified 09/25/17 00:58 Anti-Inflamma Penicillins Allergy Verified 09/25/17 00:58 Sulfa (Sulfonamide Allergy Verified 09/25/17 00:58 Antibiotics) Medications: Current Medications Acetaminophen (Tylenol) 650 mg PO Q4H PRN PRN Reason: Headache/Fever or Pain Hydrocodone Bitart/Acetaminophen ([place] 10/325) 1 tab PO Q6H PRN PRN Reason: Moderate Pain (4-6) Last Admin: 10/18/17 11:24 Dose: 1 tab Albuterol Sulfate (Albuterol Sulfate) 0.63 mg NEB Q4H PRN PRN Reason: Wheezing Albuterol Sulfate (Proventil Hfa) 2 puff INH Q4H PRN PRN Reason: SOB &/or Wheezing Aspirin (Ecotrin) 81 mg PO DAILY [facility] Last Admin: 10/18/17 08:45 Dose: 81 mg Calcium Carbonate (Caltrate) 1,200 mg PO DAILY [facility] Last Admin: 10/18/17 08:44 Dose: 1,200 mg Cholecalciferol (Vitamin D3) 1,000 units PO DAILY [facility] Last Admin: 10/18/17 08:44 Dose: 1,000 units Clonidine (Catapres) 0.1 mg PO Q4H PRN PRN Reason: Systolic BP > 180 Cyclobenzaprine HCl (Flexeril) 10 mg PO TID PRN PRN Reason: Muscle Spasm Last Admin: 10/16/17 16:17 Dose: 10 mg Dextrose/Water (Dextrose 50%) 25 gm SLOW IVP PRN PRN PRN Reason: Hypoglycemia Last Admin: 10/18/17 05:20 Dose: 25 gm Diphenhydramine HCl (Benadryl) 25 mg PO Q6H PRN PRN Reason: Itching Estradiol (Estrace) 0.5 mg PO DAILY [facility] Last Admin: 10/18/17 08:45 Dose: 0.5 mg Folic Acid (Folvite) 1 mg PO DAILY [facility] Last Admin: 10/18/17 08:45 Dose: 1 mg Glucagon (Glucagon) 1 mg IM PRN PRN PRN Reason: Hypoglycemia Heparin Sodium (Porcine) (Heparin) 5,000 units SC TID [facility] Last Admin: 10/18/17 15:22 Dose: Not Given Dextrose/Water (D5w) 1,000 mls @ 0 mls/hr IV .Q0M PRN; As Directed PRN Reason: Hypoglycemia Lactase (Lactaid Fast Act) 9,000 unit PO TID-WM [facility] Last Admin: 10/18/17 12:54 Dose: 9,000 unit Levothyroxine Sodium (Synthroid) 112 mcg PO 0600 [facility] Last Admin: 10/18/17 05:35 Dose: Not Given Loratadine (Claritin) 10 mg PO DAILY [facility] Last Admin: 10/18/17 08:44 Dose: 10 mg Mometasone Furoate/Formoterol Fumar (Dulera 200 Mcg/5 Mcg Inhaler) 1 puff INH BID-RT [facility] Last Admin: 10/18/17 08:11 Dose: 1 puff Montelukast Sodium (Singulair) 10 mg PO DAILY [facility] Last Admin: 10/18/17 08:45 Dose: 10 mg Multivitamins (Theragran) 1 tab PO DAILY [facility] Last Admin: 10/18/17 08:45 Dose: 1 tab Nystatin (Mycostatin Powder) 0 gm TOP TID [facility] Last Admin: 10/18/17 15:35 Dose: 1 applic Ondansetron HCl (Zofran Odt) 8 mg PO Q8H PRN PRN Reason: Nausea Last Admin: 10/17/17 17:11 Dose: 8 mg Pantoprazole Sodium (Protonix) 40 mg PO BID [facility] Last Admin: 10/18/17 08:44 Dose: 40 mg Saccharomyces Boulardii (Florastor) 250 mg PO TID [facility] Last Admin: 10/18/17 15:35 Dose: 250 mg Sodium Chloride (Flush - Normal Saline) 10 ml IVF Q12HR [facility] Last Admin: 10/18/17 11:25 Dose: 10 ml Sodium Chloride (Flush - Normal Saline) 10 ml IVF PRN PRN PRN Reason: Saline Flush Last Admin: 10/17/17 13:05 Dose: 10 ml Trazodone HCl (Desyrel) 100 mg PO HS PRN PRN Reason: Insomnia
[2017-10-18] MEDS: Dextrose 5 % And 0.9 % NaCl 1,000 ML IV SCH (17:58)
--- NOTE | 2017-10-18 23:17 | PRG ---
DATE OF SERVICE: 10/18/2017 REASON FOR CONSULTATION: Anemia. SUBJECTIVE: The patient overnight was unable to drink the rest of her bowel prep with stools still n ot clear at 3:00 this afternoon. Per nursing staff, she had been attempting to drink as much of the fluid as she could, but could not drink significant amounts at one point in time primarily due to her Edie-en-Y gastric bypass. Currently, denying any fevers, chills, abdominal pain, or constipation. OBJECTIVE: VITAL SIGNS: Temperature 98.6, pulse 114, blood pressure 103/68, respiratory rate 20, satting 94% on room air. LABORATORY DATA: No current laboratory data to review. IMAGING DATA: No current GI imaging is available for review. 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 Diarrhea. The patient presenting with increased diarrhea-like bowel movements over the last few ana hs with some mention of medication-induced diarrhea being within the differential diagnosis; however, she has also had significant healthcare exposures and antibiotics, which could not rule out an infec tious etiology at that time. Recent infectious stool studies were negative for C. difficile and they could potentially contribute to her diarrhea. At this time, the plan will be for endoscopic evaluat ion with EGD and colonoscopy to rule out small bowel disease and colitis, respectively. RECOMMENDATIONS: We will place the patient on clear liquid diet for the remainder of today with n.p. o. at midnight in preparation for EGD and colonoscopy tomorrow. We will continue to follow. Please call with any questions.
[2017-10-19] MEDS: HYDROcodone/Acetaminophen 10/325 mg Tablet PO PRN ×2 (01:52→14:57)
[2017-10-19] MEDS: Levothyroxine Sodium 112 MCG TAB PO SCH (06:00)
[2017-10-19 06:22] LABS: Anion Gap 14 mmol/L (10-20); BUN (Urea Nitrogen) 22 mg/dL (9.8-20.1); Calc. Creatinine Clearance 69 mL/min (70-130); Calcium 7.2 mg/dL (7.8-10.44); Carbon Dioxide 25 mmol/L (23-31); Chloride 111 mmol/L (98-107); Estimated GFR-MDRD 42; Glucose 92 mg/dL (80-115); Potassium 3.3 mmol/L (3.5-5.1); Sodium 147 mmol/L (136-145)
[2017-10-19 06:26] LABS: Band 4 % (5-11); Hemoglobin 10.8 g/dL (12.0-16.0); Lymphocytes 7 % (21-51); MDiff Complete? YES; Macrocytosis SLIGHT = 6-15 cells (100X) (0-5/hpf); Mean Corpuscular HGB CONC 31.5 g/dL (32.0-36.0); Mean Corpuscular Hemoglobin 33.5 pg (27.0-31.0); Mean Platelet Volume 8.7 fL (7.4-10.4); Monocytes 1 % (0-10); Neutrophil 88 % (42-75); PLT Morphology Comment Appears Adequate; Platelet Count 212 thou/uL (130-400); Polychromasia SLIGHT = 2-3 cells (100X) (0-2/hpf); RBC Distribution Width 14.1 % (11.5-14.5); Red Blood Cell (RBC) Count 3.22 mill/uL (4.20-5.40); Target Cells SLIGHT = 2-5 cells (100X) (0-1/hpf); White Blood Cell (WBC) Count 18.9 thou/uL (4.8-10.8)
[2017-10-19 06:42] LABS: Free T4 (Free Thyroxine) 0.66 ng/dL (0.70-1.48)
[2017-10-19] MEDS: Mometasone/Formoterol 120 PUFF INHALER INH SCH ×2 (06:51→19:03)
[2017-10-19] MEDS: Estradiol 1 MG TAB PO SCH (08:41)
[2017-10-19] MEDS: Folic Acid 1 MG TAB PO SCH (08:41)
[2017-10-19] MEDS: Loratadine 10 MG TAB PO SCH (08:41)
[2017-10-19] MEDS: Saccharomyces boulardii 250 MG CAP PO SCH ×3 (08:41→21:32)
[2017-10-19] MEDS: Montelukast Sodium 10 mg Tablet PO SCH (08:41)
[2017-10-19] MEDS: Calcium Carbonate 600 MG TAB PO SCH (08:41)
[2017-10-19] MEDS: Nystatin Powder 15 GM BOT TOP SCH ×3 (08:42→21:32)
[2017-10-19] MEDS: Aspirin 81 mg Enteric Coated Tablet PO SCH (08:42)
[2017-10-19] MEDS: Lactase 9,000 UNIT CHEWABLE TAB PO SCH ×3 (08:42→17:20)
[2017-10-19] MEDS: Multivit, Therapeutic 1 TAB PO SCH (08:42)
[2017-10-19] MEDS: Heparin 5,000 UNITS/ML VIAL SC SCH ×3 (08:42→21:32)
--- NOTE | 2017-10-19 13:31 | PDOC.PN ---
- Subjective Encounter Start Date: 10/19/17 Encounter Start Time: 11:00 Pt seen for followup re: hypoglycemia. No new complaints. - Objective Resuscitation Status: Resuscitation Status FULL:Full Resuscitation MAR Reviewed: Yes Vital Signs & Weight: Vital Signs (12 hours) Temp Pulse Resp BP BP Pulse Ox 10/19/17 08:43 114 H 101/70 10/19/17 08:00 97.5 F L 112 H 16 95/65 95 10/19/17 04:00 97.9 F 114 H 20 98/68 93 L Weight Admit Weight 215 lb 8 oz Weight 215 lb 8 oz I&O: 10/18/17 10/19/17 10/20/17 06:59 06:59 06:59 Intake Total 1080 750 Balance 1080 750 Result Diagrams: 10/19/17 05:43 10/19/17 05:43 Additional Labs: Accuchecks 10/19/17 10/19/17 10/18/17 03:48 01:22 20:56 POC Glucose 116 H 82 107 10/18/17 10/18/17 17:57 16:55 POC Glucose 106 40 L* Phys Exam - Physical Examination Obese HEENT: moist MMs Neck: supple Respiratory: clear to auscultation bilateral Cardiovascular: RRR Gastrointestinal: soft Neurological: moves all 4 limbs Psychiatric: normal affect Dx/Plan (1) Hypoglycemia Code(s): E16.2 - HYPOGLYCEMIA, UNSPECIFIED Status: Acute (2) JOSUE (acute kidney injury) Code(s): N17.9 - ACUTE KIDNEY FAILURE, UNSPECIFIED Status: Acute (3) Diarrhea Code(s): R19.7 - DIARRHEA, UNSPECIFIED Status: Chronic (4) DJD (degenerative joint disease) Code(s): M19.90 - UNSPECIFIED OSTEOARTHRITIS, UNSPECIFIED SITE Status: Chronic Qualifiers: Osteoarthritis location: unspecified site Osteoarthritis type: primary Qualified Code(s): M19.91 - Primary osteoarthritis, unspecified site (5) Depression Code(s): F32.9 - MAJOR DEPRESSIVE DISORDER, SINGLE EPISODE, UNSPECIFIED Status : Chronic (6) Hypoalbuminemia due to protein-calorie malnutrition Code(s): E46 - UNSPECIFIED PROTEIN-CALORIE MALNUTRITION Status: Chronic Comment: Patient is unable to tolerate and having diarrhea,/ 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 Continue D5NS. pt may need pancreatic imaging to rule out masses. Check insulin, proinsulin and beta hydroxy butyrate. Monitor vital signs, titrate antihypertensives as needed. Review of Systems - Review of Systems Respiratory: negative: Cough, Dry, Shortness of Breath, Hemoptysis, SOB with Excertion, Pleuritic Pain, Sputum, Wheezing Cardiovascular: negative: chest pain, palpitations, orthopnea, paroxysmal nocturnal dyspnea, edema, light headedness - Medications/Allergies Allergies/Adverse Reactions: Allergies Allergy/AdvReac Type Severity Reaction Status Date / Time cephalexin monohydrate Allergy Intermediate Rash Verified 09/25/17 00:58 [From Keflex] celecoxib [From Celebrex] Allergy Verified 09/25/17 00:58 Cephalosporins Allergy Verified 09/25/17 00:58 codeine Allergy Verified 09/25/17 00:58 [From Tylenol-Codeine #3] NSAIDS (Non-Steroidal Allergy Verified 09/25/17 00:58 Anti-Inflamma Penicillins Allergy Verified 09/25/17 00:58 Sulfa (Sulfonamide Allergy Verified 09/25/17 00:58 Antibiotics) Medications: Current Medications Acetaminophen (Tylenol) 650 mg PO Q4H PRN PRN Reason: Headache/Fever or Pain Hydrocodone Bitart/Acetaminophen ([place] 10/325) 1 tab PO Q6H PRN PRN Reason: Moderate Pain (4-6) Last Admin: 10/19/17 01:52 Dose: 1 tab Albuterol Sulfate (Albuterol Sulfate) 0.63 mg NEB Q4H PRN PRN Reason: Wheezing Albuterol Sulfate (Proventil Hfa) 2 puff INH Q4H PRN PRN Reason: SOB &/or Wheezing Aspirin (Ecotrin) 81 mg PO DAILY [facility] Last Admin: 10/19/17 08:42 Dose: Not Given Calcium Carbonate (Caltrate) 1,200 mg PO DAILY [facility] Last Admin: 10/19/17 08:41 Dose: 1,200 mg Cholecalciferol (Vitamin D3) 1,000 units PO DAILY [facility] Last Admin: 10/19/17 08:42 Dose: 1,000 units Clonidine (Catapres) 0.1 mg PO Q4H PRN PRN Reason: Systolic BP > 180 Cyclobenzaprine HCl (Flexeril) 10 mg PO TID PRN PRN Reason: Muscle Spasm Last Admin: 10/16/17 16:17 Dose: 10 mg Dextrose/Water (Dextrose 50%) 25 gm SLOW IVP PRN PRN PRN Reason: Hypoglycemia Last Admin: 10/18/17 16:58 Dose: 25 gm Diphenhydramine HCl (Benadryl) 25 mg PO Q6H PRN PRN Reason: Itching Estradiol (Estrace) 0.5 mg PO DAILY [facility] Last Admin: 10/19/17 08:41 Dose: 0.5 mg Folic Acid (Folvite) 1 mg PO DAILY [facility] Last Admin: 10/19/17 08:41 Dose: 1 mg Glucagon (Glucagon) 1 mg IM PRN PRN PRN Reason: Hypoglycemia Heparin Sodium (Porcine) (Heparin) 5,000 units SC TID [facility] Last Admin: 10/19/17 08:42 Dose: Not Given Dextrose/Water (D5w) 1,000 mls @ 0 mls/hr IV .Q0M PRN; As Directed PRN Reason: Hypoglycemia Dextrose/Sodium Chloride (D5 0.9% Ns) 1,000 mls @ 50 mls/hr IV .Q20H [facility] Last Admin: 10/18/17 17:58 Dose: 1,000 mls Lactase (Lactaid Fast Act) 9,000 unit PO TID-WM [facility] Last Admin: 10/19/17 12:05 Dose: Not Given Levothyroxine Sodium (Synthroid) 112 mcg PO 0600 [facility] Last Admin: 10/19/17 06:00 Dose: Not Given Loratadine (Claritin) 10 mg PO DAILY [facility] Last Admin: 10/19/17 08:41 Dose: 10 mg Mometasone Furoate/Formoterol Fumar (Dulera 200 Mcg/5 Mcg Inhaler) 1 puff INH BID-RT [facility] Last Admin: 10/19/17 06:51 Dose: 1 puff Montelukast Sodium (Singulair) 10 mg PO DAILY [facility] Last Admin: 10/19/17 08:41 Dose: 10 mg Multivitamins (Theragran) 1 tab PO DAILY [facility] Last Admin: 10/19/17 08:42 Dose: 1 tab Nystatin (Mycostatin Powder) 0 gm TOP TID [facility] Last Admin: 10/19/17 08:42 Dose: 1 applic Ondansetron HCl (Zofran Odt) 8 mg PO Q8H PRN PRN Reason: Nausea Last Admin: 10/17/17 17:11 Dose: 8 mg Pantoprazole Sodium (Protonix) 40 mg PO BID [facility] Last Admin: 10/19/17 08:41 Dose: 40 mg Saccharomyces Boulardii (Florastor) 250 mg PO TID [facility] Last Admin: 10/19/17 08:41 Dose: 250 mg Sodium Chloride (Flush - Normal Saline) 10 ml IVF Q12HR [facility] Last Admin: 10/19/17 08:42 Dose: Not Given Sodium Chloride (Flush - Normal Saline) 10 ml IVF PRN PRN PRN Reason: Saline Flush Last Admin: 10/17/17 13:05 Dose: 10 ml Trazodone HCl (Desyrel) 100 mg PO HS PRN PRN Reason: Insomnia
--- NOTE | 2017-10-19 14:28 | OP ---
DATE OF PROCEDURE: 10/19/2017 PROCEDURES: Esophagogastroduodenoscopy with biopsy, colonoscopy with biopsy. INDICATION FOR PROCEDURE: Chronic diarrhea. DESCRIPTION OF PROCEDURE: After the risks and benefits of the procedure were explained to the patien t including risks of bleeding, infection, perforation, reaction to anesthesia and/or pain, informed c onsent was obtained. The patient was then taken to the endoscopy suite where deep sedation was admin istered via propofol and anesthesia support. The standard gastroscope was then introduced into the [facility] with intubation of the esophagus, stomach and proximal small intestine with the findings listed below. The patient tolerated the procedure well with no immediate perioperative complications. FINDINGS: Normal appearing mucosa was seen in the proximal, mid and distal esophagus. There was no evidence of erosions, ulcerations, or mass lesions. The diaphragmatic pinch was seen at approximatel y 35 cm while the GE junction was seen at 32 cm, indicating a 3 cm hiatal hernia. STOMACH: Surgical change consistent with a Edie-en-Y gastric bypass was observed upon entry into the stomach. There was normal appearing mucosa in the gastric remnant including the cardia, fundus and a portion of the body. Intubation of anastomosis between the stomach and efferent limb was normal wi th no ulcerations or mucosal erythema. PROXIMAL SMALL INTESTINE: Normal appearing mucosa was seen in the efferent limb of the proximal smal l intestine with no evidence of erosions, ulcerations, or mass lesions. Multiple random biopsies wer e taken from this region looking for possible infectious etiology contributing to her diarrhea as wel l as malnutrition. IMPRESSION: 1. Surgical change associated with Edie-en-Y gastric bypass with normal anastomosis and normal findi ngs within the stomach itself. 2. A 3 cm hiatal hernia. 3. No etiology for diarrhea was seen during this examination. PROCEDURE: Colonoscopy. DESCRIPTION OF PROCEDURE: After the risks and benefits of the procedure were explained to the patien t including risks of infection, bleeding, perforation, reaction to anesthesia and/or pain, informed c onsent was obtained for the colonoscopy. The patient was taken back to the endoscopy suite where aime p sedation was administered via propofol and anesthesia support. The standard colonoscope was introd uced into the rectum and advanced all the way to the cecum and terminal ileum with examination of the colonic mucosa upon slow withdrawal. The colon prep was fair with a mild to moderate amount of both solid and liquid stool seen throughout the entire colon, but adequate for the visualization of gross /mass lesions. However, the prep was inadequate for evaluation of fine mucosal lesions less than 5 m m in size. The patient tolerated the procedure well with no immediate perioperative complications. FINDINGS: Normal mucosa was seen in the terminal ileum, cecum, ileocecal valve and appendiceal orifi ce. Normal appearing mucosa was seen in the ascending, transverse, and descending colons. A small a mount of small scattered diverticula were seen in the distal descending and sigmoid colons without an y associated increased erythema, ulceration or mucosal breakdown. Normal appearing mucosa was also s een in the rectum. Random biopsies were taken throughout the entire colon for evaluation of possible microscopic colitis. Small internal hemorrhoids were noted on rectal retroflexion. IMPRESSION: 1. Mild left-sided colonic diverticulosis. 2. Small internal hemorrhoids. 3. No etiology for chronic diarrhea was seen during this examination. RECOMMENDATIONS: 1. Follow with primary inpatient team. 2. We would obtain infectious stool studies (ordered on 10/16/2017) for possible infectious origin o f her diarrhea. 3. We will follow up on the biopsy results as a possible source of her diarrhea. 4. If the infectious results are negative, we could start patient on p.r.n. use of loperamide 2 mg e very 6 hours as needed for diarrhea.
[2017-10-19] MEDS ORDERED: PROPOFOL 200 MG/20 ML VIAL ONE (15:40)
[2017-10-19] MEDS: Dextrose 5 % And 0.9 % NaCl 1,000 ML IV SCH (17:22)
--- NOTE | 2017-10-19 17:46 | EKG ---
Test Reason : DIAGNOSING PURPOSES Blood Pressure : / mmHG Vent. Rate : 102 BPM Atrial Rate : 102 BPM P-R Int : 000 ms QRS Dur : 064 ms QT Int : 352 ms P-R-T Axes : 000 -32 026 degrees QTc Int : 458 ms Sinus tachycardia with occasional , and consecutive Premature ventricular complexes and Fusion comple xes Left axis deviation Low voltage QRS Septal infarct , age undetermined Possible Lateral infarct , age undetermined Inferior infarct , age undetermined Abnormal ECG Confirmed by BEKA ROCKWELL, DORIS ([id number]), features editor MARY HUANG ([id number]) on 10/19/2017 5:46:15 PM Referred By: Confirmed By:DORIS IRELAND MD
[2017-10-20] MEDS: HYDROcodone/Acetaminophen 10/325 mg Tablet PO PRN (06:02)
[2017-10-20] MEDS: Levothyroxine Sodium 112 MCG TAB PO SCH (06:03)
[2017-10-20 06:06] LABS: Anion Gap 16 mmol/L (10-20); BUN (Urea Nitrogen) 22 mg/dL (9.8-20.1); Calc. Creatinine Clearance 62 mL/min (70-130); Calcium 7.3 mg/dL (7.8-10.44); Carbon Dioxide 20 mmol/L (23-31); Chloride 112 mmol/L (98-107); Estimated GFR-MDRD 37; Glucose 84 mg/dL (80-115); Potassium 3.6 mmol/L (3.5-5.1); Sodium 144 mmol/L (136-145)
[2017-10-20 06:26] LABS: Band 8 % (5-11); Eosinophils 1 % (0-10); Hemoglobin 10.9 g/dL (12.0-16.0); Lymphocytes 9 % (21-51); MDiff Complete? YES; Mean Corpuscular HGB CONC 31.7 g/dL (32.0-36.0); Mean Corpuscular Hemoglobin 34.5 pg (27.0-31.0); Mean Platelet Volume 9.5 fL (7.4-10.4); Monocytes 1 % (0-10); Neutrophil 81 % (42-75); PLT Morphology Comment Appears Decreased; Platelet Count 106 thou/uL (130-400); Red Blood Cell (RBC) Count 3.17 mill/uL (4.20-5.40); White Blood Cell (WBC) Count 12.7 thou/uL (4.8-10.8)
[2017-10-20] MEDS: Mometasone/Formoterol 120 PUFF INHALER INH SCH ×2 (06:36→19:47)
[2017-10-20] MEDS: Heparin 5,000 UNITS/ML VIAL SC SCH ×3 (08:13→21:38)
[2017-10-20] MEDS: Dextrose 5 % And 0.9 % NaCl 1,000 ML IV SCH ×2 (08:18→13:31)
[2017-10-20] MEDS: Nystatin Powder 15 GM BOT TOP SCH ×3 (09:00→20:45)
[2017-10-20] MEDS: Calcium Carbonate 600 MG TAB PO SCH (12:01)
[2017-10-20] MEDS: Aspirin 81 mg Enteric Coated Tablet PO SCH (12:01)
[2017-10-20] MEDS: Lactase 9,000 UNIT CHEWABLE TAB PO SCH ×3 (12:01→16:11)
[2017-10-20] MEDS: Multivit, Therapeutic 1 TAB PO SCH (12:02)
[2017-10-20] MEDS: Montelukast Sodium 10 mg Tablet PO SCH (12:02)
[2017-10-20] MEDS: Estradiol 1 MG TAB PO SCH (12:02)
[2017-10-20] MEDS: Folic Acid 1 MG TAB PO SCH (12:02)
[2017-10-20] MEDS: Loratadine 10 MG TAB PO SCH (12:02)
[2017-10-20] MEDS: Saccharomyces boulardii 250 MG CAP PO SCH ×3 (12:03→20:10)
--- NOTE | 2017-10-20 12:44 | PDOC.PN ---
- Subjective Encounter Start Date: 10/20/17 Encounter Start Time: 08:40 Pt seen for followup re: hypoglycemia. Pt lethargic, not answering questions, unable to complete ROS. - Objective Resuscitation Status: Resuscitation Status FULL:Full Resuscitation MAR Reviewed: Yes Vital Signs & Weight: Vital Signs (12 hours) Temp Pulse Resp BP Pulse Ox 10/20/17 12:06 98.0 F 126 H 20 103/72 94 L 10/20/17 08:00 97.9 F 121 H 20 90/64 95 10/20/17 06:08 128 H 22 H 94 L 10/20/17 04:00 98.0 F 18 134/73 Weight Admit Weight 215 lb 8 oz Weight 215 lb 8 oz I&O: 10/19/17 10/20/17 10/21/17 06:59 06:59 06:59 Intake Total 1590 538 Balance 1590 538 Result Diagrams: 10/22/17 03:10 10/22/17 03:10 Additional Labs: Accuchecks 10/20/17 10/20/17 10/19/17 11:47 05:05 19:54 POC Glucose 103 92 87 10/19/17 10/19/17 16:16 14:46 POC Glucose 80 54 L* Phys Exam - Physical Examination Constitutional: NAD HEENT: moist MMs Neck: supple Respiratory: clear to auscultation bilateral Cardiovascular: RRR Gastrointestinal: soft Neurological: moves all 4 limbs Psychiatric: normal affect Dx/Plan (1) Hypoglycemia Code(s): E16.2 - HYPOGLYCEMIA, UNSPECIFIED Status: Acute (2) JOSUE (acute kidney injury) Code(s): N17.9 - ACUTE KIDNEY FAILURE, UNSPECIFIED Status: Acute (3) Diarrhea Code(s): R19.7 - DIARRHEA, UNSPECIFIED Status: Chronic (4) DJD (degenerative joint disease) Code(s): M19.90 - UNSPECIFIED OSTEOARTHRITIS, UNSPECIFIED SITE Status: Chronic Qualifiers: Osteoarthritis location: unspecified site Osteoarthritis type: primary Qualified Code(s): M19.91 - Primary osteoarthritis, unspecified site (5) Depression Code(s): F32.9 - MAJOR DEPRESSIVE DISORDER, SINGLE EPISODE, UNSPECIFIED Status : Chronic (6) Hypoalbuminemia due to protein-calorie malnutrition Code(s): E46 - UNSPECIFIED PROTEIN-CALORIE MALNUTRITION Status: Chronic Comment: Patient is unable to tolerate and having diarrhea,/ 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 s/p EGD, colonoscopy. Continue D5NS, monitor accuchecks. Cr worse today, continue fluids and recheck. Review of Systems - Medications/Allergies Allergies/Adverse Reactions: Allergies Allergy/AdvReac Type Severity Reaction Status Date / Time cephalexin monohydrate Allergy Intermediate Rash Verified 09/25/17 00:58 [From Keflex] celecoxib [From Celebrex] Allergy Verified 09/25/17 00:58 Cephalosporins Allergy Verified 09/25/17 00:58 codeine Allergy Verified 09/25/17 00:58 [From Tylenol-Codeine #3] NSAIDS (Non-Steroidal Allergy Verified 09/25/17 00:58 Anti-Inflamma Penicillins Allergy Verified 09/25/17 00:58 Sulfa (Sulfonamide Allergy Verified 09/25/17 00:58 Antibiotics) Medications: Current Medications Acetaminophen (Tylenol) 650 mg PO Q4H PRN PRN Reason: Headache/Fever or Pain Hydrocodone Bitart/Acetaminophen ([place] 10/325) 1 tab PO Q6H PRN PRN Reason: Moderate Pain (4-6) Last Admin: 10/20/17 06:02 Dose: 1 tab Albuterol Sulfate (Albuterol Sulfate) 0.63 mg NEB Q4H PRN PRN Reason: Wheezing Albuterol Sulfate (Proventil Hfa) 2 puff INH Q4H PRN PRN Reason: SOB &/or Wheezing Aspirin (Ecotrin) 81 mg PO DAILY [facility] Last Admin: 10/20/17 12:01 Dose: Not Given Calcium Carbonate (Caltrate) 1,200 mg PO DAILY [facility] Last Admin: 10/20/17 12:01 Dose: Not Given Cholecalciferol (Vitamin D3) 1,000 units PO DAILY [facility] Last Admin: 10/20/17 12:01 Dose: Not Given Clonidine (Catapres) 0.1 mg PO Q4H PRN PRN Reason: Systolic BP > 180 Cyclobenzaprine HCl (Flexeril) 10 mg PO TID PRN PRN Reason: Muscle Spasm Last Admin: 10/16/17 16:17 Dose: 10 mg Dextrose/Water (Dextrose 50%) 25 gm SLOW IVP PRN PRN PRN Reason: Hypoglycemia Last Admin: 10/18/17 16:58 Dose: 25 gm Diphenhydramine HCl (Benadryl) 25 mg PO Q6H PRN PRN Reason: Itching Estradiol (Estrace) 0.5 mg PO DAILY [facility] Last Admin: 10/20/17 12:02 Dose: Not Given Folic Acid (Folvite) 1 mg PO DAILY [facility] Last Admin: 10/20/17 12:02 Dose: Not Given Glucagon (Glucagon) 1 mg IM PRN PRN PRN Reason: Hypoglycemia Heparin Sodium (Porcine) (Heparin) 5,000 units SC TID [facility] Last Admin: 10/20/17 08:13 Dose: 5,000 units Dextrose/Water (D5w) 1,000 mls @ 0 mls/hr IV .Q0M PRN; As Directed PRN Reason: Hypoglycemia Dextrose/Sodium Chloride (D5 0.9% Ns) 1,000 mls @ 50 mls/hr IV .Q20H [facility] Last Admin: 10/20/17 08:18 Dose: Not Given Lactase (Lactaid Fast Act) 9,000 unit PO TID-WM [facility] Last Admin: 10/20/17 12:03 Dose: Not Given Levothyroxine Sodium (Synthroid) 125 mcg PO 0600 [facility] Loratadine (Claritin) 10 mg PO DAILY [facility] Last Admin: 10/20/17 12:02 Dose: Not Given Mometasone Furoate/Formoterol Fumar (Dulera 200 Mcg/5 Mcg Inhaler) 1 puff INH BID-RT [facility] Last Admin: 10/20/17 06:36 Dose: 1 puff Montelukast Sodium (Singulair) 10 mg PO DAILY [facility] Last Admin: 10/20/17 12:02 Dose: Not Given Multivitamins (Theragran) 1 tab PO DAILY [facility] Last Admin: 10/20/17 12:02 Dose: Not Given Nystatin (Mycostatin Powder) 0 gm TOP TID [facility] Last Admin: 10/20/17 09:00 Dose: 1 applic Ondansetron HCl (Zofran Odt) 8 mg PO Q8H PRN PRN Reason: Nausea Last Admin: 10/17/17 17:11 Dose: 8 mg Pantoprazole Sodium (Protonix) 40 mg PO BID [facility] Last Admin: 10/20/17 12:03 Dose: Not Given Saccharomyces Boulardii (Florastor) 250 mg PO TID [facility] Last Admin: 10/20/17 12:03 Dose: Not Given Sodium Chloride (Flush - Normal Saline) 10 ml IVF Q12HR [facility] Last Admin: 10/20/17 08:12 Dose: Not Given Sodium Chloride (Flush - Normal Saline) 10 ml IVF PRN PRN PRN Reason: Saline Flush Last Admin: 10/17/17 13:05 Dose: 10 ml Trazodone HCl (Desyrel) 100 mg PO HS PRN PRN Reason: Insomnia
[2017-10-20 12:58] LABS: Ref Lab Test Ordered PROINSULIN; Reference Lab Name LABCORP
[2017-10-20] MEDS ORDERED: Acetaminophen 1,000 MG in Premix Bag 1 BAG IVPB SCH (16:45)
[2017-10-20 17:09] LABS: Blood, Urine Negative (Negative); Clarity CLOUDY (Clear); Glucose, Urine (Dipstick) Negative (Negative); Protein, Urine (Dipstick) Negative (Neg-Trace); Specific Gravity, Urine 1.028 (1.002-1.036)
[2017-10-20 17:12] LABS: RBC/HPF 0-3 HPF (0-3)
[2017-10-20 17:13] LABS: Pathc Cast-AUWi Flag 3.79 (0-2.49)
[2017-10-20 17:21] LABS: Bilirubin Unable to Interpret (Negative); Leukocyte Unable to Interpret (Negative); Nitrite Unable to Interpret (Negative)
[2017-10-20 17:22] LABS: Bacteria/HPF 3+ HPF (None Seen); Hyaline Casts/LPF NONE SEEN LPF (0-3 Hyaline); Other Casts/LPF None Seen LPF (0-3 Hyaline); Renal Epithelial None Seen HPF (0-3); Transitional Epithelial NONE SEEN HPF (0-3)
--- NOTE | 2017-10-20 18:14 | RAD ---
SUPINE ABDOMEN: Date: 10/20/17 HISTORY: Abdominal pain. FINDINGS: The image is blurred due to patient motion, which degrades the study. There is scattered gas seen in both small and large bowel. There is gas to the level of the rectum. T here is mild small bowel distention, which appears nonspecific. No mass effect. IMPRESSION: Nonspecific bowel gas pattern with mild gaseous distention of small and large bowel. Gas is seen to t he level of the rectum. POS: [facility]
[2017-10-20 18:15] LABS: ALT (SGPT) 37 U/L (8-55); AST (SGOT) 43 U/L (5-34); Albumin 1.9 g/dL (3.4-4.8); Alkaline Phosphatase 343 U/L (40-150); Anion Gap 19 mmol/L (10-20); BUN (Urea Nitrogen) 24 mg/dL (9.8-20.1); Bilirubin, Total 2.9 mg/dL (0.2-1.2); Calc. Creatinine Clearance 56 mL/min (70-130); Calcium 7.7 mg/dL (7.8-10.44); Carbon Dioxide 21 mmol/L (23-31); Chloride 110 mmol/L (98-107); Estimated GFR-MDRD 33; Globulin 2.4 g/dL (2.4-3.5); Glucose 70 mg/dL (80-115); Potassium 3.6 mmol/L (3.5-5.1); Protein, Total 4.3 g/dL (6.0-8.3); Sodium 146 mmol/L (136-145)
--- NOTE | 2017-10-20 18:19 | RAD ---
AP CHEST: Date: 10/20/17 HISTORY: Shortness of breath. Comparison made to film of 10/15/17. FINDINGS: There are now bilateral alveolar infiltrates seen throughout both lungs which represent a significant change from the prior study. Heart and mediastinum appear unchanged. IMPRESSION: There are new bilateral confluent alveolar infiltrates which have occurred since the prior exam. Ther e is pleural thickening and/or fluid along the right chest wall laterally and probable small bilatera l effusions. POS: [facility]
[2017-10-20] MEDS ORDERED: Haloperidol Lactate 5 MG/ML VIAL IM SCH (19:15)
[2017-10-20] MEDS ORDERED: Furosemide 40 MG/4 ML VIAL SLOW IVP SCH (19:30)
[2017-10-20] MEDS: Vancomycin HCl 1 GM in Premix Bag 1 BAG IVPB SCH (20:41)
--- NOTE | 2017-10-20 20:47 | PDOC.EVN ---
Event Note - Event Note Event Note: Pt seen at various times today evening. Was lethargic earlier, now less lethargic. SaO2 were low. She denies any chest pain, moaning most of the time. S1 and S2 heard, tachycardic and regular. Lung exam shows nicole crackles. CXR shows pulmonary edema vs. infection. General surgery consulted for central line placement for bloodwork. Pt keeps pulling mask off, necessitating restraints. Oxygen saturations now in low 90s. Transfer to [facility] for closer observation. Discussed code status with family. Pt remains full code. IV diuretics and IV antibiotics. Discontinue D5W, monitor for hypoglycemia.
[2017-10-20] MEDS ORDERED: Haloperidol Lactate 5 MG/ML VIAL IM PRN (20:51)
--- NOTE | 2017-10-20 21:48 | PRG ---
DATE OF SERVICE: 10/20/2017 REASON FOR CONSULTATION: Diarrhea. SUBJECTIVE: Yesterday, the patient underwent EGD and colonoscopy with no etiology for her diarrhea s een during those examinations; however, biopsies were taken from both the small bowel and colon for p ossible microscopic abnormalities that could contribute. Since the colonoscopy and upper endoscopy, she has not had any bowel movements that could be evaluated for possible infectious etiology. Alida ochoa, later this afternoon, she was noted to have increased altered mental status that was fairly unresp onsive to verbal stimuli. She was also noted to have a tachycardic rate, which prompted urgent evalu ation with blood work, EKG and chest x-ray. During the same time, she was not noted to be hypotensiv e, but did display mild hypoxia. OBJECTIVE: VITAL SIGNS: Temperature 97.6, pulse 133, blood pressure 123/79, respiratory rate 18, satting 91% on room air. GENERAL: The patient is lying in bed, in moderate distress, alert and oriented x0. NECK: Supple. No JVD noted. CARDIOVASCULAR: Tachycardic rate with regular rhythm. No discernible murmurs, gallops or rubs. RESPIRATORY: Diminished breath sounds heard in all lung hopson, although difficult to discern due to patient's increased moving during the examination. ABDOMEN: Normoactive bowel sounds, soft, tenderness to palpation in all abdominal quadrants. BACK: Increased tenderness to palpation in the left mid back. EXTREMITIES: No cyanosis or clubbing. Edema noted in the bilateral upper and lower extremities. Cl ear fluid was also seen emanating from her skin on the dorsum of her left hand. LABORATORY DATA: CBC with a white blood cell count of 12.7, hemoglobin 10.9, hematocrit 34.4, and pl atelets 106. Chemistry with a sodium of 144, potassium 3.6, chloride 112, CO2 of 20, BUN 22, creatin ine 1.42, glucose 84. IMAGING DATA: EGD and colonoscopy yesterday showed surgical change consistent with a Edie-en-Y gastr ic bypass, but there were no other abnormalities seen in the upper GI tract. Colonoscopy also reveal ed only mild left-sided colonic diverticulosis without any etiology for chronic diarrhea during that examination as well. 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 Diarrhea. The patient presented with increased diarrhea-like bowel movements over the last few month s with a significant healthcare exposure as well as antibiotics which could have contributed at that time. An infectious stool studies were ordered at the beginning of this hospitalization, but still h ave not been collected especially due to lack of any bowel movements over the last 24 hours. EGD and colonoscopy obtained on 10/19/2017 did not show any significant abnormalities that would contribute to her current diarrhea. At this time, the etiology of her diarrhea is unknown, but differential cou ld include infectious diarrhea, microscopic colitis, small bowel pathology including celiac disease ( unlikely) small bowel infection or medication induced. RECOMMENDATIONS: 1. We will follow up on the biopsy results for the possible source of her diarrhea. 2. We would obtain infectious stool studies for possible infectious origin of her diarrhea if she do es have a bowel movement. If the infectious results are negative, could consider starting patient on loperamide p.r.n. as needed for diarrhea. 3. Altered mental status. Per chart review, the patient has had altered mental status for the major ity of the day today and upon physical examination showed significant abdominal tenderness and back t enderness upon movement concerning for complication from the procedures yesterday. Urgent KUB did no t show any free air or significant gaseous distention that could contribute to her altered mental sta tus and abdominal pain on physical exam today. Dr. Bowman was notified of her acute change in mental status with chest x-ray, KUB, blood cultures, and urinalysis obtained with results still pending at t his time. RECOMMENDATIONS: We will follow up on the ordered studies for possible infectious etiology causing h er change in mental status. I appreciate the assistance of Dr. Bowman taking care of this patient.
[2017-10-20 22:12] LABS: CKMB 3.3 ng/mL (0-6.6); Troponin I 0.022 ng/mL (< 0.028)
[2017-10-20 22:17] LABS: Band 4 % (5-11); Hemoglobin 11.2 g/dL (12.0-16.0); Lymphocytes 6 % (21-51); MDiff Complete? YES; Macrocytosis SLIGHT = 6-15 cells (100X) (0-5/hpf); Mean Corpuscular HGB CONC 32.6 g/dL (32.0-36.0); Mean Corpuscular Hemoglobin 34.8 pg (27.0-31.0); Mean Platelet Volume 9.4 fL (7.4-10.4); Metamyelocyte 1 % (0-0); Monocytes 3 % (0-10); Neutrophil 86 % (42-75); Nucleated RBC 1 % (0); PLT Morphology Comment Appears Adequate; Platelet Count 210 thou/uL (130-400); Polychromasia SLIGHT = 2-3 cells (100X) (0-2/hpf); RBC Distribution Width 14.1 % (11.5-14.5); White Blood Cell (WBC) Count 11.7 thou/uL (4.8-10.8)
--- NOTE | 2017-10-20 22:58 | RAD ---
1 VIEW CHEST: Date: 10/20/17 HISTORY: Verify line placement. COMPARISON: 10/20/17 at 1755 hours. FINDINGS: Portable supine chest radiograph demonstrates interval placement of a right-sided central venous cath eter with the distal tip projecting over the expected region of the right atrium. Evaluation is sligh tly limited due to patient's leftward rotation. Based on the supine projection, no definite pneumotho rax. There is no evidence of a right-sided deep sulcus sign. There is worsening interstitial and alve olar opacification throughout the lung parenchyma. Stable diffuse bone demineralization. Stable cervi justin fusion hardware. IMPRESSION: 1. Right-sided central venous catheter as above. 2. Worsening interstitial and alveolar opacification. 3. No definite pneumothorax on this supine projection. POS: [facility]
[2017-10-20] MEDS ORDERED: Lorazepam 2 MG/ML VIAL SLOW IVP PRN (23:24)
[2017-10-20] MEDS ORDERED: Morphine 4 MG/ML Carpuject SLOW IVP PRN ×2 (23:24→23:45)
[2017-10-21 00:28] LABS: CKMB 4.4 ng/mL (0-6.6); Troponin I 0.024 ng/mL (< 0.028)
--- NOTE | 2017-10-21 00:52 | OP ---
DATE OF PROCEDURE: 10/20/2017 PREOPERATIVE DIAGNOSIS: Poor IV access, congestive heart failure, respiratory distress. POSTOPERATIVE DIAGNOSIS: Poor IV access, congestive heart failure, respiratory distress. PROCEDURE PERFORMED: Right subclavian vein central line. SURGEON: Dr. Franko Huber. ANESTHESIA: 1% Xylocaine. PROCEDURE IN DETAIL: At the patient's bedside, her right periclavicular area was prepared with Chlor aPrep, draped in routine fashion. Seldinger technique was used to place a triple lumen catheter in t he right subclavian vein infraclavicular approach, securing it with a Biopatch and 3-0 silk suture an d each port aspirated blood and flushed with saline solution. Sterile dressing applied. J-wire emma cayla. Chest x-ray confirmed placement.
[2017-10-21 01:14] LABS: Base Excess (BEa) -1.7 mEq/L (0 (+/-) 2.5); CO2 Tension 24.9 mmHg (35.0-45.0); O2 Tension (PaO2) 51.8 mmHg (80.0-100.0); pH, Arterial 7.52 (7.35-7.45)
[2017-10-21 01:15] LABS: Calcium, Ionized 1.1 mmol/L (1.12-1.30); Hematocrit-ABG 35.3 % (36.0-47.0); Hemoglobin (Hb) 10.8 g/dL (12.0-16.0)
[2017-10-21 01:16] LABS: ALV-art Gradient 116.715 (0-20); Puncture Site RRA
[2017-10-21 01:55] LABS: Lactic Acid 4.5 mmol/L (0.5-2.2)
[2017-10-21 01:57] LABS: CO2 Tension 29.7 mmHg (35.0-45.0); pH, Arterial 7.44 (7.35-7.45)
[2017-10-21 01:58] LABS: Actual Bicarbonate (HCO3a) 19.8 mEq/L (22-26); Base Excess (BEa) -3.4 mEq/L (0 (+/-) 2.5); Hematocrit-ABG 36.1 % (36.0-47.0); Hemoglobin (Hb) 10.9 g/dL (12.0-16.0); O2 Tension (PaO2) 62.6 mmHg (80.0-100.0)
[2017-10-21 01:59] LABS: Calcium, Ionized 1.1 mmol/L (1.12-1.30); Puncture Site R BRACHIAL
[2017-10-21 02:00] LABS: ALV-art Gradient 328.075 (0-20)
[2017-10-21] MEDS ORDERED: Sedation Protocol FS ONE (04:12)
[2017-10-21] MEDS ORDERED: fentaNYL Citrate/PF 2,000 MCG in Sodium Chloride 0.9% 60 ML IV SCH (04:20)
[2017-10-21] MEDS ORDERED: DISCONTINUE PREVIOUS NARCOTIC PAIN MEDICATIONS AND BENZODIAZEPINES FS SCH (04:20)
[2017-10-21] MEDS ORDERED: Morphine 2 MG/ML SYRINGE SLOW IVP PRN (04:20)
[2017-10-21] MEDS ORDERED: Fentanyl BOLUS 250 ML IVPB PRN (04:20)
[2017-10-21] MEDS ORDERED: Sodium Chloride 0.9% 1,000 ML IV SCH ×2 (04:30→15:30)
--- NOTE | 2017-10-21 04:39 | OP ---
PROCEDURE: Bronchoscopy with intubation and bronchoalveolar lavage. PREOPERATIVE DIAGNOSIS: Acute respiratory failure with pneumonia. POSTOPERATIVE DIAGNOSIS: Acute respiratory failure with pneumonia. ANESTHESIA: None. DESCRIPTION OF PROCEDURE: This procedure was done on an emergent basis. The patient was in profound respiratory failure. A bite block was placed in the patient's mouth. She was intubated orally through bite block on the f irst attempt with a 7.5 endotracheal tube. Tube was secured at 21 cm at the lip. This left tube bea roximately 3 cm above the devon. Bronchoalveolar lavage was performed in the left upper lobe. Of n ote, copious secretions were noted in the left side and the right side. These were suctioned and rem melody. A bronchoalveolar lavage was sent for appropriate studies. The procedure was tolerated well. The patient was placed on mechanical ventilation.
[2017-10-21 04:43] LABS: Actual Bicarbonate (HCO3a) 19.1 mEq/L (22-26); Base Excess (BEa) -3.5 mEq/L (0 (+/-) 2.5); CO2 Tension 27.1 mmHg (35.0-45.0); Calcium, Ionized 1.1 mmol/L (1.12-1.30); Hematocrit-ABG 37.4 % (36.0-47.0); Hemoglobin (Hb) 11.2 g/dL (12.0-16.0); O2 Tension (PaO2) 191.3 mmHg (80.0-100.0); pH, Arterial 7.47 (7.35-7.45)
[2017-10-21 04:44] LABS: ALV-art Gradient 487.825 (0-20); Puncture Site RRAD
[2017-10-21] MEDS: Propofol 1,000 MG/100 ML VIAL IV PRN ×3 (04:59→20:16)
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
[2017-10-21 05:42] LABS: Anion Gap 15 mmol/L (10-20); BUN (Urea Nitrogen) 26 mg/dL (9.8-20.1); Calc. Creatinine Clearance 49 mL/min (70-130); Calcium 7.3 mg/dL (7.8-10.44); Carbon Dioxide 20 mmol/L (23-31); Chloride 112 mmol/L (98-107); Estimated GFR-MDRD 29; Glucose 61 mg/dL (80-115); Potassium 3.4 mmol/L (3.5-5.1); Sodium 144 mmol/L (136-145)
[2017-10-21] MEDS: Albumin 25% 25 GM/100 ML BOT IVPB SCH ×4 (05:53→23:02)
[2017-10-21] MEDS ORDERED: Furosemide 40 MG/4 ML VIAL SLOW IVP SCH (06:00)
[2017-10-21 06:08] LABS: Band 23 % (5-11); Hemoglobin 11.6 g/dL (12.0-16.0); Lymphocytes 4 % (21-51); MDiff Complete? YES; Macrocytosis MODERATE=16-30 cells (100X) (0-5/hpf); Mean Corpuscular HGB CONC 32.4 g/dL (32.0-36.0); Mean Corpuscular Hemoglobin 34.7 pg (27.0-31.0); Mean Platelet Volume 9.5 fL (7.4-10.4); Metamyelocyte 3 % (0-0); Neutrophil 69 % (42-75); PLT Morphology Comment Appears Adequate; Platelet Count 194 thou/uL (130-400); Polychromasia SLIGHT = 2-3 cells (100X) (0-2/hpf); RBC Distribution Width 14.1 % (11.5-14.5); Reactive Lymphocytes 1 % (0-10); Red Blood Cell (RBC) Count 3.35 mill/uL (4.20-5.40); White Blood Cell (WBC) Count 7.8 thou/uL (4.8-10.8)
[2017-10-21] MEDS: Levothyroxine Sodium 125 MCG TAB PO SCH (06:35)
[2017-10-21] MEDS: Dextrose 50% Abboject 50 ML SYRINGE SLOW IVP PRN ×3 (08:32→12:19)
[2017-10-21] MEDS: Lorazepam 2 MG/ML VIAL SLOW IVP PRN ×3 (08:44→22:38)
[2017-10-21] MEDS: Montelukast Sodium 10 mg Tablet PO SCH (10:49)
[2017-10-21] MEDS: Aspirin 81 mg Enteric Coated Tablet PO SCH (10:49)
[2017-10-21] MEDS: Multivit, Therapeutic 1 TAB PO SCH (10:49)
[2017-10-21] MEDS: Folic Acid 1 MG TAB PO SCH (10:49)
[2017-10-21] MEDS: Heparin 5,000 UNITS/ML VIAL SC SCH ×3 (10:49→20:17)
[2017-10-21] MEDS: Saccharomyces boulardii 250 MG CAP PO SCH ×3 (10:49→20:16)
[2017-10-21] MEDS: Estradiol 1 MG TAB PO SCH (10:49)
[2017-10-21] MEDS: Pantoprazole 40 MG VIAL IVP SCH ×2 (10:49→20:16)
[2017-10-21] MEDS: Nystatin Powder 15 GM BOT TOP SCH ×3 (10:50→20:16)
[2017-10-21] MEDS ORDERED: Norepinephrine 8 MG/0.9% NS 250 ML ONE (11:46)
[2017-10-21] MEDS ORDERED: Norepinephrine 8 MG/250 ML BAG IVPB PRN (12:31)
[2017-10-21] MEDS ORDERED: Dextrose 5 % And 0.9 % NaCl 1,000 ML IV SCH (12:45)
--- NOTE | 2017-10-21 14:37 | PDOC.PN ---
- Subjective Encounter Start Date: 10/21/17 Encounter Start Time: 14:36 Pt seen for followup re: bacteremia. Pt intubated, unable to complete ROS. - Objective Resuscitation Status: Resuscitation Status FULL:Full Resuscitation MAR Reviewed: Yes Vital Signs & Weight: Vital Signs (12 hours) Temp Pulse Resp BP Pulse Ox 10/21/17 14:00 25 H 10/21/17 13:40 114 H 10/21/17 12:00 98.6 F 33 H 10/21/17 11:00 114 H 92/49 L 10/21/17 10:37 112 H 10/21/17 10:00 36 H 10/21/17 08:00 98.6 F 110 H 20 96 10/21/17 07:09 118 H 130/62 10/21/17 06:00 24 H 10/21/17 04:12 118 H 40 H 10/21/17 04:00 97.9 F 36 H 10/21/17 03:30 97.9 F 125 H 36 H 93 L Weight Admit Weight 215 lb 8 oz Weight 215 lb 8 oz Most Recent Monitor Data Heart Rate from ECG 111 NIBP 102/54 NIBP BP-Mean 81 Respiration from ECG 25 SpO2 96 I&O: 10/20/17 10/21/17 10/22/17 06:59 06:59 06:59 Intake Total 538 860 Output Total 160 25 Balance 538 700 -25 Result Diagrams: 10/21/17 04:54 10/21/17 04:54 Additional Labs: Accuchecks 10/21/17 10/21/17 10/21/17 12:58 12:11 08:41 POC Glucose 134 H 56 L* 156 H 10/21/17 10/20/17 10/20/17 08:27 20:26 18:45 POC Glucose Less than 35 L* 80 79 10/20/17 16:46 POC Glucose 78 EKG Reviewed by me: Yes (Tele: sinus tachycardia) Phys Exam - Physical Examination Obese HEENT: moist MMs Neck: no nodes [place] crackles S1, S2, tachy, reg Gastrointestinal: soft No spontaneous limb movements (sedated) Dx/Plan (1) Bacteremia Code(s): R78.81 - BACTEREMIA Status: Acute (2) Acute respiratory failure Code(s): J96.00 - ACUTE RESPIRATORY FAILURE, UNSP W HYPOXIA OR HYPERCAPNIA Status: Acute Qualifiers: Respiratory failure complication: hypoxia Qualified Code(s): J96.01 - Acute respiratory failure with hypoxia (3) Hospital acquired PNA Code(s): J18.9 - PNEUMONIA, UNSPECIFIED ORGANISM Status: Acute (4) Hypoglycemia Code(s): E16.2 - HYPOGLYCEMIA, UNSPECIFIED Status: Acute (5) JOSUE (acute kidney injury) Code(s): N17.9 - ACUTE KIDNEY FAILURE, UNSPECIFIED Status: Acute (6) Diarrhea Code(s): R19.7 - DIARRHEA, UNSPECIFIED Status: Chronic (7) DJD (degenerative joint disease) Code(s): M19.90 - UNSPECIFIED OSTEOARTHRITIS, UNSPECIFIED SITE Status: Chronic Qualifiers: Osteoarthritis location: unspecified site Osteoarthritis type: primary Qualified Code(s): M19.91 - Primary osteoarthritis, unspecified site (8) Depression Code(s): F32.9 - MAJOR DEPRESSIVE DISORDER, SINGLE EPISODE, UNSPECIFIED Status : Chronic (9) Hypoalbuminemia due to protein-calorie malnutrition Code(s): E46 - UNSPECIFIED PROTEIN-CALORIE MALNUTRITION Status: Chronic Comment: Patient is unable to tolerate and having diarrhea,/ 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 Continue IV antibiotics as below for pneumonia and bacteremia. Appreciate PCCM input. Monitor accuchecks, change IV fluids to D5NS for hypoglycemic episodes. IV fluids for dehydration. Watch urine output (minimal today) Review of Systems - Medications/Allergies Allergies/Adverse Reactions: Allergies Allergy/AdvReac Type Severity Reaction Status Date / Time cephalexin monohydrate Allergy Intermediate Rash Verified 09/25/17 00:58 [From Keflex] celecoxib [From Celebrex] Allergy Verified 09/25/17 00:58 Cephalosporins Allergy Verified 09/25/17 00:58 codeine Allergy Verified 09/25/17 00:58 [From Tylenol-Codeine #3] NSAIDS (Non-Steroidal Allergy Verified 09/25/17 00:58 Anti-Inflamma Penicillins Allergy Verified 09/25/17 00:58 Sulfa (Sulfonamide Allergy Verified 09/25/17 00:58 Antibiotics) Medications: Current Medications Acetaminophen (Tylenol) 650 mg PO Q4H PRN PRN Reason: Headache/Fever or Pain Albumin Human (Albumin 25%) 25 gm IVPB Q6HR [facility] Stop: 10/22/17 12:01 Last Admin: 10/21/17 11:50 Dose: 25 gm Albuterol Sulfate (Albuterol Sulfate) 0.63 mg NEB Q4H PRN PRN Reason: Wheezing Aspirin (Ecotrin) 81 mg PO DAILY [facility] Last Admin: 10/21/17 10:49 Dose: 81 mg Cholecalciferol (Vitamin D3) 1,000 units PO DAILY [facility] Last Admin: 10/21/17 10:49 Dose: 1,000 units Clonidine (Catapres) 0.1 mg PO Q4H PRN PRN Reason: Systolic BP > 180 Dextrose/Water (Dextrose 50%) 25 gm SLOW IVP PRN PRN PRN Reason: Hypoglycemia Last Admin: 10/21/17 12:19 Dose: 25 gm Estradiol (Estrace) 0.5 mg PO DAILY [facility] Last Admin: 10/21/17 10:49 Dose: 0.5 mg Folic Acid (Folvite) 1 mg PO DAILY [facility] Last Admin: 10/21/17 10:49 Dose: 1 mg Glucagon (Glucagon) 1 mg IM PRN PRN PRN Reason: Hypoglycemia Heparin Sodium (Porcine) (Heparin) 5,000 units SC TID [facility] Last Admin: 10/21/17 10:49 Dose: 5,000 units Dextrose/Water (D5w) 1,000 mls @ 0 mls/hr IV .Q0M PRN; As Directed PRN Reason: Hypoglycemia Vancomycin HCl 1 gm/ Device 200 mls @ 200 mls/hr IVPB 2100 [facility] Last Admin: 10/20/17 20:41 Dose: 200 mls Fentanyl Citrate 2,000 mcg/ (Sodium Chloride) 100 mls @ 0 mls/hr IV INF [facility]; Per Protocol PRN Reason: Protocol Stop: 11/20/17 04:20 Fentanyl Citrate (Fentanyl Bolus) 250 mls @ 0 mls/hr IVPB PRN PRN; As Directed PRN Reason: Breakthrough pain Stop: 11/20/17 04:20 Levofloxacin 750 mg/ Device 150 mls @ 100 mls/hr IVPB Q2D@2000 [facility] Norepinephrine Bitartrate (Levophed) 250 mls @ 0 mls/hr IVPB INF PRN; Protocol ; Titrate PRN Reason: Blood Pressure Dextrose/Sodium Chloride (D5 0.9% Ns) 1,000 mls @ 125 mls/hr IV .Q8H [facility] Last Admin: 10/21/17 12:35 Dose: 1,000 mls Levothyroxine Sodium (Synthroid) 125 mcg PO 0600 [facility] Last Admin: 10/21/17 06:35 Dose: 125 mcg Lorazepam (Ativan) 2 mg SLOW IVP Q2H PRN PRN Reason: Anxiety to achieve Alarcon 2-3 Stop: 11/20/17 04:20 Last Admin: 10/21/17 08:44 Dose: 2 mg Miscellaneous Medication (Pharmacy To Dose) 1 each IVPB ONE PRN PRN Reason: Pharmacy to dose Stop: 11/19/17 19:44 Montelukast Sodium (Singulair) 10 mg PO DAILY [facility] Last Admin: 10/21/17 10:49 Dose: 10 mg Morphine Sulfate (Morphine) 2 mg SLOW IVP Q2H PRN PRN Reason: Breakthrough pain Stop: 11/20/17 04:22 Multivitamins (Theragran) 1 tab PO DAILY [facility] Last Admin: 10/21/17 10:49 Dose: 1 tab Discontinue Previous Narcotic Pain Medications And Benzodiazepines 1 each FS .ONE [facility] Stop: 11/20/17 04:20 Nystatin (Mycostatin Powder) 0 gm TOP TID [facility] Last Admin: 10/21/17 10:50 Dose: 1 applic Ondansetron HCl (Zofran Odt) 8 mg PO Q8H PRN PRN Reason: Nausea Last Admin: 10/17/17 17:11 Dose: 8 mg Pantoprazole Sodium (Protonix) 40 mg IVP BID [facility] Last Admin: 10/21/17 10:49 Dose: 40 mg Propofol (Diprivan) 1,000 mg IV INF PRN; Protocol PRN Reason: TO ACHIEVE ALARCON SCORE 2-3 Stop: 11/20/17 04:20 Last Admin: 10/21/17 12:36 Dose: 1,000 mg Saccharomyces Boulardii (Florastor) 250 mg PO TID [facility] Last Admin: 10/21/17 10:49 Dose: 250 mg Sodium Chloride (Flush - Normal Saline) 10 ml IVF Q12HR [facility] Last Admin: 10/21/17 10:50 Dose: 10 ml Sodium Chloride (Flush - Normal Saline) 10 ml IVF PRN PRN PRN Reason: Saline Flush Last Admin: 10/17/17 13:05 Dose: 10 ml
[2017-10-21] MEDS ORDERED: Lactated Ringer's 1,000 ML IV SCH (15:30)
[2017-10-21] MEDS: Dextrose 5 %-0.45 % NaCl 1,000 ML IV SCH ×2 (15:33→22:37)
--- NOTE | 2017-10-21 17:14 | PRG ---
DATE OF SERVICE: 10/21/2017 SUBJECTIVE: Ms. Ricks underwent EGD and colonoscopy with Dr. Velázquez on Saturday. Endoscopically, the exam was unrevealing for chronic diarrhea. He did obtain small bowel and colon biopsies, which are s till pending. Yesterday, the patient had decline in mental status as well as respiratory status and ended up being transferred to the ICU and eventually intubated. She has been found to have Escherich ia coli bacteremia. Nursing reports no stool output today. She is tolerating intake through nasogas tric tube. OBJECTIVE: VITAL SIGNS: Pulse 105, blood pressure 112/68, 96% oxygen saturation on ventilator, temperature is 9 8.6. GENERAL: A critically ill, sedated and intubated. HEART: Regular tachycardia. LUNGS: Bibasilar crackles. ABDOMEN: Soft and nontender to palpation. EXTREMITIES: No peripheral edema. LABORATORY STUDIES: WBC 7.8, hemoglobin 11.6, platelets 194. D-dimer 1.51. Sodium 144, potassium 3 .4, BUN 26, creatinine 1.79, glucose 134. Lactic acid 4.5, plasma zin low at 40. Blood cultures fro m yesterday and urine culture from yesterday, both growing E. coli. Bronchioalveolar lavage from ear lier today showing WBCs gram positive rods and gram positive cocci. ASSESSMENT AND PLAN: 1. Chronic diarrhea, small bowel and colon biopsies pending. Endoscopy and stool studies have been unrevealing with regard to this. Over the past couple of days, diarrhea really has not been an issue . We will follow up biopsy results. 2. Escherichia coli bacteremia. 3. Respiratory failure. This is being managed by primary and critical care teams. We will follow up results of biopsies. Please call with questions or concerns.
[2017-10-21] MEDS: Vancomycin HCl 1 GM in Premix Bag 1 BAG IVPB SCH (20:17)
[2017-10-22] MEDS: Lorazepam 2 MG/ML VIAL SLOW IVP PRN ×2 (02:47→06:39)
[2017-10-22 03:41] LABS: Anion Gap 17 mmol/L (10-20); BUN (Urea Nitrogen) 25 mg/dL (9.8-20.1); Calc. Creatinine Clearance 45 mL/min (70-130); Calcium 7.4 mg/dL (7.8-10.44); Carbon Dioxide 18 mmol/L (23-31); Chloride 111 mmol/L (98-107); Estimated GFR-MDRD 26; Glucose 80 mg/dL (80-115); Potassium 3.2 mmol/L (3.5-5.1); Sodium 143 mmol/L (136-145)
[2017-10-22 04:07] LABS: Hemoglobin 7.9 g/dL (12.0-16.0); Lymphocytes 67 % (21-51); MDiff Complete? YES; Mean Corpuscular HGB CONC 32.8 g/dL (32.0-36.0); Mean Corpuscular Hemoglobin 35.2 pg (27.0-31.0); Mean Platelet Volume 9.5 fL (7.4-10.4); Monocytes 5 % (0-10); Neutrophil 28 % (42-75); PLT Morphology Comment Appears Decreased; Platelet Count 103 thou/uL (130-400); RBC Distribution Width 14.2 % (11.5-14.5); Red Blood Cell (RBC) Count 2.25 mill/uL (4.20-5.40); White Blood Cell (WBC) Count 1.1 thou/uL (4.8-10.8)
[2017-10-22] MEDS: Albumin 25% 25 GM/100 ML BOT IVPB SCH ×2 (05:54→14:03)
[2017-10-22] MEDS: Levothyroxine Sodium 125 MCG TAB PO SCH (05:54)
[2017-10-22] MEDS ORDERED: Potassium Chloride 40 MEQ in Sodium Chloride 0.9% 250 ML 250 ML IVPB SCH (06:00)
[2017-10-22] MEDS: Potassium Chloride 40 MEQ in Premix Bag 1 BAG IVPB SCH ×2 (06:13→14:42)
[2017-10-22 07:12] LABS: Actual Bicarbonate (HCO3a) 16.1 mEq/L (22-26); Base Excess (BEa) -8.3 mEq/L (0 (+/-) 2.5); CO2 Tension 28.3 mmHg (35.0-45.0); Hematocrit-ABG 25.6 % (36.0-47.0); Hemoglobin (Hb) 7.2 g/dL (12.0-16.0); O2 Tension (PaO2) 57.7 mmHg (80.0-100.0); pH, Arterial 7.37 (7.35-7.45)
[2017-10-22 07:13] LABS: ALV-art Gradient 544.125 (0-20); Puncture Site RBA
[2017-10-22] MEDS ORDERED: Furosemide 100 MG/10 ML VIAL SLOW IVP SCH (07:30)
--- NOTE | 2017-10-22 07:46 | PRG ---
DATE OF SERVICE: 10/22/2017 PULMONARY AND CRITICAL CARE PROGRESS NOTE This is 40 minutes of critical care time. SUBJECTIVE: The patient is extremely agitated this morning and is somewhat dyssynchronous with mecha nical ventilation. PHYSICAL EXAMINATION: VITAL SIGNS: Temperature is 99.8, pulse in the 110s-130s, blood pressure 106/55. A 24 hour intake 5 201, output 107. GENERAL: Neurologically, she is obtunded on mechanical ventilation. She is on a propofol drip. HEENT: Pupils react. Sclerae are anicteric. Oropharynx clear. NECK: No JVD, no thyromegaly. LUNGS: Coarse breath sounds bilaterally. CARDIOVASCULAR: S1, S2 tachycardic. ABDOMEN: Soft, nontender, nondistended. EXTREMITIES: Edematous throughout, especially at the arms. LABORATORY DATA: White blood cell count 1.1, hemoglobin 7.9, hematocrit 24.1, platelet count 103. A pH 7.37, pCO2 28, pO2 of 57 on assist control rate 20, tidal volume 500, PEEP 10, FiO2 90%. Sodium 143, potassium 3.2, chloride 111, CO2 18, BUN 25, creatinine 1.9, glucose 80 and calcium 7.4. ASSESSMENT: 1. Acute respiratory failure requiring mechanical ventilation. 2. Bilateral hospital-acquired pneumonia. 3. Acute renal insufficiency. 4. Chronic diarrhea. 5. Escherichia coli bacteremia. PLAN: 1. Going to go ahead and add a second agent for E. coli because apparently there is a resistance pat scarlett on this one. I will try carbapenem. 2. Paralysis. Nephrology consultation as the patient will likely need dialysis given that her kidne ys are completely shut down.
--- NOTE | 2017-10-22 08:11 | RAD ---
AP CHEST: History: Ventilator dependent patient. Date: 10-23-17 Comparison: 10-20-17 FINDINGS: AP chest demonstrates placement of a nasogastric tube distal tip in the region of the gastric fundus. Patient has been intubated. Endotracheal tube is in good position. There is a right sided subclavian central line, distal tip overlying the right atrium. ACDF fusion plates are in place. There are diffuse airspace opacities bilaterally compatible with bilateral pneumonia or pulmonary myron ma. A small left sided pleural effusion is seen. IMPRESSION: 1. Placement of nasogastric tube, endotracheal tube and right subclavian central line. 2. Bilateral airspace opacities seen in the lung parenchyma. POS: H
[2017-10-22] MEDS: Aspirin 81 mg Enteric Coated Tablet PO SCH (08:45)
[2017-10-22] MEDS: Folic Acid 1 MG TAB PO SCH (08:46)
[2017-10-22] MEDS: Pantoprazole 40 MG VIAL IVP SCH (08:46)
[2017-10-22] MEDS: Multivit, Therapeutic 1 TAB PO SCH (08:46)
[2017-10-22] MEDS: Saccharomyces boulardii 250 MG CAP PO SCH ×2 (08:46→14:42)
[2017-10-22] MEDS: Montelukast Sodium 10 mg Tablet PO SCH (08:46)
[2017-10-22] MEDS: Dextrose 5 %-0.45 % NaCl 1,000 ML IV SCH (09:30)
[2017-10-22] MEDS: Meropenem 2 GM in Sodium Chloride 0.9% 100 ML IVPB SCH ×2 (09:30→16:18)
[2017-10-22] MEDS: Estradiol 1 MG TAB PO SCH (09:30)
[2017-10-22] MEDS: Dextrose 50% Abboject 50 ML SYRINGE SLOW IVP PRN ×2 (11:00→13:11)
[2017-10-22] MEDS: Propofol 1,000 MG/100 ML VIAL IV PRN (11:00)
[2017-10-22] MEDS: Nystatin Powder 15 GM BOT TOP SCH ×2 (11:03→16:19)
[2017-10-22] MEDS: Heparin 5,000 UNITS/ML VIAL SC SCH (11:25)
[2017-10-22] MEDS ORDERED: Hydrocortisone Sod Succ/PF 250 mg/2 ml Vial SLOW IVP SCH (12:00)
[2017-10-22] MEDS ORDERED: WATER IV SCH (13:45)
[2017-10-22] MEDS ORDERED: DEXTROSE 10% IV SCH (13:45)
[2017-10-22] MEDS ORDERED: POTASSIUM CHLORIDE IV SCH (13:45)
[2017-10-22] MEDS ORDERED: SODIUM BICARBONATE IV SCH (13:45)
[2017-10-22] MEDS: Hydrocortisone Sod Succ/PF 100 mg/2 ml Vial IVP SCH ×2 (14:02→16:51)
[2017-10-22 14:25] VITALS: BP 79/32
[2017-10-22] MEDS ORDERED: Vasopressin 40 UNIT, Admixture Fee 1 EACH in Sodium Chloride 0.9% 100 ML IV SCH (14:30)
[2017-10-22] MEDS ORDERED: Norepinephrine 8 MG in Sodium Chloride 0.9% 250 ML 250 ML IVPB PRN (14:41)
--- NOTE | 2017-10-22 15:36 | PRG ---
DATE OF SERVICE: 10/22/2017 SUBJECTIVE: Patient has continued to deteriorate this afternoon. Her blood pressure is almost undet ectable most of the time and her O2 sat has not improved. I had another talk with the patient's and his [id number]. Both are agreeable with the p atient should be DNR, understanding that she will likely succumb to the illness at night. We will no t titrate vasopressor any further.
--- NOTE | 2017-10-22 16:25 | PDOC.PN ---
- Subjective Encounter Start Date: 10/22/17 Encounter Start Time: 09:20 Pt seen for followup re: bacteremia. Intubate, unable to obtain ROS. - Objective Resuscitation Status: Resuscitation Status DNR:Do Not Resuscitate MAR Reviewed: Yes Vital Signs & Weight: Vital Signs (12 hours) Temp Pulse Pulse Pulse Resp BP BP 10/22/17 14:22 112 H 79/32 L 10/22/17 14:00 20 10/22/17 12:00 99.1 F 20 10/22/17 10:20 117 H 91/42 L 10/22/17 10:06 93/44 L 10/22/17 10:00 20 10/22/17 09:34 133 H 134 H 10/22/17 08:00 100.5 F H 117 H 32 H 10/22/17 07:13 131 H 91/53 L 10/22/17 07:00 100.5 F H 10/22/17 06:00 38 H BP BP Pulse Ox Pulse Ox Pulse Ox Pulse Ox 10/22/17 14:22 10/22/17 14:00 10/22/17 12:00 10/22/17 10:20 10/22/17 10:06 93/45 L 96 96 10/22/17 10:00 10/22/17 09:34 98/47 L 99/56 L 96 99 10/22/17 08:00 92 L 10/22/17 07:13 10/22/17 07:00 10/22/17 06:00 Weight Admit Weight 215 lb 8 oz Weight 233 lb 7.512 oz Most Recent Monitor Data Heart Rate from ECG 116 NIBP 73/38 NIBP BP-Mean 44 Respiration from ECG 27 SpO2 92 I&O: 10/21/17 10/22/17 10/23/17 06:59 06:59 06:59 Intake Total 860 5201 200 Output Total 160 107 10 Balance 700 5094 190 Result Diagrams: 10/22/17 03:10 10/22/17 03:10 Additional Labs: Accuchecks 10/22/17 10/22/17 10/22/17 13:52 13:04 10:59 POC Glucose 124 H 40 L* Less than 35 L* 10/22/17 10/21/17 10/21/17 03:08 22:54 17:02 POC Glucose 85 80 125 H EKG Reviewed by me: Yes (Tele: sinus tachycardia) Phys Exam - Physical Examination Intubated ETT Neck: no nodes Respiratory: clear to auscultation bilateral S1, S2, reg, tachy Gastrointestinal: soft Deviation from normal: Unable to assess Deviation from normal: Bruises over both forearms Dx/Plan (1) Bacteremia Code(s): R78.81 - BACTEREMIA Status: Acute (2) Septic shock Code(s): A41.9 - SEPSIS, UNSPECIFIED ORGANISM; R65.21 - SEVERE SEPSIS WITH SEPTIC SHOCK Status: Acute (3) Acute respiratory failure Code(s): J96.00 - ACUTE RESPIRATORY FAILURE, UNSP W HYPOXIA OR HYPERCAPNIA Status: Acute Qualifiers: Respiratory failure complication: hypoxia Qualified Code(s): J96.01 - Acute respiratory failure with hypoxia (4) Hospital acquired PNA Code(s): J18.9 - PNEUMONIA, UNSPECIFIED ORGANISM Status: Acute (5) Hypoglycemia Code(s): E16.2 - HYPOGLYCEMIA, UNSPECIFIED Status: Acute (6) JOSUE (acute kidney injury) Code(s): N17.9 - ACUTE KIDNEY FAILURE, UNSPECIFIED Status: Acute (7) Diarrhea Code(s): R19.7 - DIARRHEA, UNSPECIFIED Status: Chronic (8) DJD (degenerative joint disease) Code(s): M19.90 - UNSPECIFIED OSTEOARTHRITIS, UNSPECIFIED SITE Status: Chronic Qualifiers: Osteoarthritis location: unspecified site Osteoarthritis type: primary Qualified Code(s): M19.91 - Primary osteoarthritis, unspecified site (9) Depression Code(s): F32.9 - MAJOR DEPRESSIVE DISORDER, SINGLE EPISODE, UNSPECIFIED Status : Chronic (10) Hypoalbuminemia due to protein-calorie malnutrition Code(s): E46 - UNSPECIFIED PROTEIN-CALORIE MALNUTRITION Status: Chronic Comment: Patient is unable to tolerate and having diarrhea,/ 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 Discussed with daughter. Prognosis poor. Meropenem has been added to cover multidrug resistant E. coli. Review of Systems - Medications/Allergies Allergies/Adverse Reactions: Allergies Allergy/AdvReac Type Severity Reaction Status Date / Time cephalexin monohydrate Allergy Intermediate Rash Verified 09/25/17 00:58 [From Keflex] celecoxib [From Celebrex] Allergy Verified 09/25/17 00:58 Cephalosporins Allergy Verified 09/25/17 00:58 codeine Allergy Verified 09/25/17 00:58 [From Tylenol-Codeine #3] NSAIDS (Non-Steroidal Allergy Verified 09/25/17 00:58 Anti-Inflamma Penicillins Allergy Verified 09/25/17 00:58 Sulfa (Sulfonamide Allergy Verified 09/25/17 00:58 Antibiotics) Medications: Current Medications Acetaminophen (Tylenol) 650 mg PO Q4H PRN PRN Reason: Headache/Fever or Pain Last Admin: 10/21/17 20:16 Dose: 650 mg Albuterol Sulfate (Albuterol Sulfate) 0.63 mg NEB Q4H PRN PRN Reason: Wheezing Aspirin (Ecotrin) 81 mg PO DAILY [facility] Last Admin: 10/22/17 08:45 Dose: 81 mg Cholecalciferol (Vitamin D3) 1,000 units PO DAILY [facility] Last Admin: 10/22/17 09:30 Dose: 1,000 units Clonidine (Catapres) 0.1 mg PO Q4H PRN PRN Reason: Systolic BP > 180 Dextrose/Water (Dextrose 50%) 25 gm SLOW IVP PRN PRN PRN Reason: Hypoglycemia Last Admin: 10/22/17 13:11 Dose: 25 gm Enoxaparin Sodium (Lovenox) 30 mg SC 0900 [facility] Estradiol (Estrace) 0.5 mg PO DAILY [facility] Last Admin: 10/22/17 09:30 Dose: 0.5 mg Folic Acid (Folvite) 1 mg PO DAILY [facility] Last Admin: 10/22/17 08:46 Dose: 1 mg Glucagon (Glucagon) 1 mg IM PRN PRN PRN Reason: Hypoglycemia Hydrocortisone Sodium Succinate (Solu-Cortef) 100 mg IVP Q6HR [facility] Last Admin: 10/22/17 14:02 Dose: 100 mg Dextrose/Water (D5w) 1,000 mls @ 0 mls/hr IV .Q0M PRN; As Directed PRN Reason: Hypoglycemia Vancomycin HCl 1 gm/ Device 200 mls @ 200 mls/hr IVPB 2100 [facility] Last Admin: 10/21/17 20:17 Dose: 200 mls Fentanyl Citrate 2,000 mcg/ (Sodium Chloride) 100 mls @ 0 mls/hr IV INF [facility]; Per Protocol PRN Reason: Protocol Stop: 11/20/17 04:20 Fentanyl Citrate (Fentanyl Bolus) 250 mls @ 0 mls/hr IVPB PRN PRN; As Directed PRN Reason: Breakthrough pain Stop: 11/20/17 04:20 Levofloxacin 750 mg/ Device 150 mls @ 100 mls/hr IVPB Q2D@2000 [facility] Potassium Chloride 40 meq/ (Device) 100 mls @ 25 mls/hr IVPB Q8HR [facility] Stop: 10/22/17 17:59 Last Admin: 10/22/17 14:42 Dose: 100 mls Meropenem 2 gm/ Sodium (Chloride) 100 mls @ 200 mls/hr IVPB 0800,1600,2359 [facility] Last Admin: 10/22/17 16:18 Dose: 100 mls Potassium Chloride 40 meq/Sodium Bicarbonate 150 meq/Dextrose/Water 1,170 mls @ 125 mls/hr IV .Q9H22M [facility] Last Admin: 10/22/17 14:44 Dose: 1,170 mls Vasopressin 40 unit/Miscellaneous Medication 1 each/ Sodium Chloride 102 mls @ 0 mls/hr IV INF [facility]; As Directed PRN Reason: Protocol Last Admin: 10/22/17 14:38 Dose: 102 mls Norepinephrine Bitartrate 8 mg (/ Sodium Chloride) 258 mls @ 0 mls/hr IVPB INF PRN; Protocol; Titrate PRN Reason: Blood Pressure Last Admin: 10/22/17 16:18 Dose: 258 mls Levothyroxine Sodium (Synthroid) 125 mcg PO 0600 [facility] Last Admin: 10/22/17 05:54 Dose: 125 mcg Lorazepam (Ativan) 2 mg SLOW IVP Q2H PRN PRN Reason: Anxiety to achieve Alarcon 2-3 Stop: 11/20/17 04:20 Last Admin: 10/22/17 06:39 Dose: 2 mg Miscellaneous Medication (Pharmacy To Dose) 1 each IVPB ONE PRN PRN Reason: Pharmacy to dose Stop: 11/19/17 19:44 Montelukast Sodium (Singulair) 10 mg PO DAILY [facility] Last Admin: 10/22/17 08:46 Dose: 10 mg Morphine Sulfate (Morphine) 2 mg SLOW IVP Q2H PRN PRN Reason: Breakthrough pain Stop: 11/20/17 04:22 Last Admin: 10/22/17 02:21 Dose: 2 mg Multivitamins (Theragran) 1 tab PO DAILY [facility] Last Admin: 10/22/17 08:46 Dose: 1 tab Discontinue Previous Narcotic Pain Medications And Benzodiazepines 1 each FS .ONE [facility] Stop: 11/20/17 04:20 Nystatin (Mycostatin Powder) 0 gm TOP TID [facility] Last Admin: 10/22/17 16:19 Dose: 2 applic Ondansetron HCl (Zofran Odt) 8 mg PO Q8H PRN PRN Reason: Nausea Last Admin: 10/17/17 17:11 Dose: 8 mg Pantoprazole Sodium (Protonix) 40 mg IVP BID [facility] Last Admin: 10/22/17 08:46 Dose: 40 mg Propofol (Diprivan) 1,000 mg IV INF PRN; Protocol PRN Reason: TO ACHIEVE ALARCON SCORE 2-3 Stop: 11/20/17 04:20 Last Admin: 10/22/17 11:00 Dose: 1,000 mg Rocuronium [place] (Zemuron) 50 mg IVP Q30MIN PRN PRN Reason: Agitation Last Admin: 10/22/17 09:08 Dose: 50 mg Saccharomyces Boulardii (Florastor) 250 mg PO TID [facility] Last Admin: 10/22/17 14:42 Dose: 250 mg Sodium Chloride (Flush - Normal Saline) 10 ml IVF Q12HR [facility] Last Admin: 10/22/17 08:46 Dose: 10 ml Sodium Chloride (Flush - Normal Saline) 10 ml IVF PRN PRN PRN Reason: Saline Flush Last Admin: 10/17/17 13:05 Dose: 10 ml
[2017-10-22 17:01] VITALS: TEMP 99.4
--- NOTE | 2017-10-23 06:24 | CON ---
DATE OF CONSULTATION: 10/22/2017 CONSULTING PHYSICIAN: Francoise Beyer M.D. REQUESTING PHYSICIAN: Harman Cruz M.D. REASON FOR CONSULTATION: Acute renal shut down. IMPRESSION: 1. Acute on chronic kidney disease. This is likely hemodynamic and cytokine-mediated injury in the context of sepsis, low blood pressure. 2. Hypokalemia. 3. Cardiopulmonary failure. 4. Persistent hypoglycemia in the context of zero insulin clearance. PLAN: 1. Renally dose all medications and avoid potentially nephrotoxic agents. 2. We will replete the potassium prior to initiating bicarbonate . 3. Further management to be dependent on the clinical course. HISTORY OF PRESENT ILLNESS: History is that of a 62-year-old female patient who was initially treate d here for cellulitis and fever. The patient subsequently got discharged to the rehabilitation facil it for patient to undergo rehabilitation. However, the patient developed a persistent diarrhea prio r to presenting to the hospital here. The patient is now on pressor dependent and a complete renal s hut down as evidenced by lack of urine output at least for in the past 24 hours. As a result of this , decision has been taken to involve Renal in the management of this case. The patient noted to stil l remain hypoglycemic despite 50% dextrose supplementation. The patient also noted to be hypokalemic . PAST MEDICAL HISTORY: Significant for mitral valve regurgitation, spinal stenosis, iron deficiency a nemia, and reflux disease. MEDICATIONS: Reviewed and as documented on [employer]. ALLERGIES: KEFLEX, CELEBREX, CEPHALOSPORINS, CODEINE, and PENICILLIN. FAMILY HISTORY: None significantly related to the current illness. SOCIAL HISTORY: No alcohol, no tobacco, no illicit drug use as per record. REVIEW OF SYSTEMS: Could not be obtained given the fact that this patient is currently intubated. PHYSICAL EXAMINATION: GENERAL: The patient was found to have labile hemodynamics with systolic blood pressure of 79 to 93 on pressors. HEENT: Remarkable for endotracheal placement of the tracheostomy tube. CARDIOVASCULAR SYSTEM: First and second heart sounds were heard. RESPIRATORY SYSTEM: Reveals vented sounds. DIGESTIVE SYSTEM: Revealed a benign abdomen. EXTREMITIES: No peripheral edema. SKIN: No new gross rash. LYMPHATICS: No peripheral lymphadenopathy. SUMMARY: A 62-year-old female patient who is now experiencing acute renal shut down.
[2017-10-23] MEDS ORDERED: Enoxaparin Sodium 30 MG/0.3 ML SYRINGE SC SCH (09:00)
--- NOTE | 2017-10-23 16:48 | EKG ---
Test Reason : Blood Pressure : / mmHG Vent. Rate : 142 BPM Atrial Rate : 182 BPM P-R Int : 000 ms QRS Dur : 070 ms QT Int : 260 ms P-R-T Axes : 000 -50 263 degrees QTc Int : 399 ms Multifocal atrial tachycardia Premature ventricular complexes Left axis deviation Low voltage QRS Possible Lateral infarct (cited on or before 24-SEP-2017) Abnormal ECG Confirmed by GEOVANNA CLEMENTE ([id number]) on 10/23/2017 4:48:24 PM Referred By: ABDON Confirmed By:GEOVANNA CLEMENTE
--- NOTE | 2017-10-23 20:09 | DIS ---
SERGEY SUMMARY DATE OF ADMISSION: 10/15/2017 DATE OF : 10/22/2017 PRIMARY CARE PHYSICIAN: Renate Ro D.O. ADMISSION DIAGNOSES: 1. Acute respiratory failure. 2. Bilateral hospital-acquired pneumonia. 3. Escherichia coli bacteremia. 4. Urinary tract infection. 5. Acute renal failure. 6. Colonic diverticulosis, internal hemorrhoids. HOSPITAL COURSE: Ms. Ricks was admitted to [facility] on 10/15/2017 for diarrh ea and generalized weakness. She was seen by Gastroenterology Service. She was prepped for a colono scopy and underwent colonoscopy on 10/19/2017, which showed mild colonic diverticulosis as well as sm all hemorrhoids. On 10/20/2017, she was found to be lethargic. She was also having difficulty maintaining oxygen satu rations. A chest x-ray showed bilateral pneumonia. She was started on broad spectrum antibiotics. She was initially treated with BiPAP and subsequently needed intubation during the night. She also h ad a central line placed by General Surgery Service. She was transferred to the Critical Care Unit for mechanical ventilation. She continued to decline. Her urine output was almost nonexistent. Nephrology service was consulted. On 10/22/2017, she declined further. She was already needing vasopressors at this time and her renal function had significantly deteriorated. After discussion between Pulmonology Service and family me garibay, she was made DNR. Patient was terminally extubated at 1830 hours and at 1835 hours. Many thanks for allowing me to participate in your patient's care. Please feel free to contact me wi th any questions or concerns. CONSULTATIONS DURING THIS HOSPITALIZATION: Gastroenterology, Dr. Phillips; Pulmonology, Dr. Cruz; Gen eral Surgery, Dr. Huber and Nephrology, Dr. Beyer.
== END 2017-10-22 18:35 | disposition expired | DRG 853 ==
LOC: ERS 12:59 → T4-B 14:53 → IMCU/EMU 10-20 21:47 → CCU 10-21 03:25
PROVIDERS: ADMIT Internal Medicine; ATTEND Internal Medicine
PROC: 0DB88ZX Excision of Small Intestine, Via Natural or Artificial Opening Endoscopic, Diagnostic (ICD-10-PCS; 2017-10-19)
PROC: 0DBE8ZX Excision of Large Intestine, Via Natural or Artificial Opening Endoscopic, Diagnostic (ICD-10-PCS; 2017-10-19)
PROC: 02H633Z Insertion of Infusion Device into Right Atrium, Percutaneous Approach (ICD-10-PCS; 2017-10-20)
PROC: 0BH17EZ Insertion of Endotracheal Airway into Trachea, Via Natural or Artificial Opening (ICD-10-PCS; principal; 2017-10-21)
PROC: 0B9G8ZX Drainage of Left Upper Lung Lobe, Via Natural or Artificial Opening Endoscopic, Diagnostic (ICD-10-PCS; 2017-10-21)
PROC: 5A1945Z Respiratory Ventilation, 24-96 Consecutive Hours (ICD-10-PCS; 2017-10-21)
DX: A41.9 Sepsis, unspecified organism (principal); J96.01 Acute respiratory failure with hypoxia; R65.21 Severe sepsis with septic shock; J18.9 Pneumonia, unspecified organism; E46 Unspecified protein-calorie malnutrition; K91.2 Postsurgical malabsorption, not elsewhere classified; N39.0 Urinary tract infection, site not specified; Z68.41 Body mass index [BMI] 40.0-44.9, adult; K52.9 Noninfective gastroenteritis and colitis, unspecified; D50.9 Iron deficiency anemia, unspecified; I34.0 Nonrheumatic mitral (valve) insufficiency; K21.9 Gastro-esophageal reflux disease without esophagitis; Z98.84 Bariatric surgery status; Z86.718 Personal history of other venous thrombosis and embolism; Z79.82 Long term (current) use of aspirin; Z88.1 Allergy status to other antibiotic agents; Z88.5 Allergy status to narcotic agent; Z91.010 Allergy to peanuts; I95.1 Orthostatic hypotension; E88.09 Other disorders of plasma-protein metabolism, not elsewhere classified; K44.9 Diaphragmatic hernia without obstruction or gangrene; K57.30 Diverticulosis of large intestine without perforation or abscess without bleeding; K64.8 Other hemorrhoids; Z66 Do not resuscitate; Y95 Nosocomial condition; N28.9 Disorder of kidney and ureter, unspecified; B96.20 Unspecified Escherichia coli [E. coli] as the cause of diseases classified elsewhere; E87.6 Hypokalemia; E16.2 Hypoglycemia, unspecified; Z96.651 Presence of right artificial knee joint; Z79.51 Long term (current) use of inhaled steroids; Z88.0 Allergy status to penicillin; M19.90 Unspecified osteoarthritis, unspecified site; F32.9 Major depressive disorder, single episode, unspecified; F41.9 Anxiety disorder, unspecified
CPT/HCPCS: 36415; 36416; 71045; 74018; 80048; 80053; 81003; 81015; 82010; 82306; 82550; 82553; 82728; 82805; 83036; 83525; 83540; 83550; 83605; 83690; 83880; 84439; 84443; 84446; 84481; 84484; 84590; 84630; 84681; 85007; 85025; 85027; 85379; 85610; 85730; 87040; 87070; 87077; 87086; 87149; 87186; 88305; 93005; 93010; 94002; 94003; 94660; 94664; 96374; A4216; A4353; C9113; G8978-GP-CK; G8978-GP-CN; G8979-GP-CJ; G8979-GP-CK; G8987-GO-CL; G8987-GO-CN; G8988-GO-CJ; G8988-GO-CN; G8989-GO-CN; J0131; J1630; J1644; J1720; J1940; J1956; J2060; J2185; J2270; J2704; J3370; J3480; J7050; J7070; P9047